=== PATIENT | male | born 1965 | race Caucasian/White ===

== ENCOUNTER 2024-02-27 16:59 | Inpatient (IN) | payer BC, SELFPAY ==
[2024-02-27] VITALS (7 sets, daily range): BP systolic 144–187; BP diastolic 95–121; BMI 21.2
--- NOTE | 2024-02-27 13:09 | ED.GENMED ---
History of Present Illness
General
Chief Complaint: Heart Rate Problem
Source: patient
Time Seen by Provider: 02/27/24 12:55
History of Present Illness
History of Present Illness:
58yoM with a history of IgA nephropathy s/p renal transplant in 2002 presenting with his mother for evaluation of multiple complaints. Patient reports 'fibrillating' in his chest for the past several months. He also reports a central discomfort in
his chest which he is having a hard time describing. Symptoms seem to be worse with activity and improved with rest. He reports associated dyspnea. He believes his heart rate is low. Patient also reports nausea over the past several weeks. He has
not been drinking much over the past few days and his urine output has decreased. Patient received his renal transplant at [facility] in 2002. He has not seen a rag cutting machine operator in about 2.5 years as his rag cutting machine operator reportedly
retired. Patient is supposed to be taking prednisone, and mycophenolate but he is taking these medications since September of this year. He has not had blood work in several years.
Past History
Past History
ED Past Medical History: HTN and Renal failure (Renal transplant 2002)
ED Past Surgical History: Other (Renal transplant 2002; AV fistula left forearm)
Social History
Tobacco: Non-smoker
Alcohol: None
Drug: None
Personal: Single
Living: with family
Employment: Not employed
Family History
Family History: Hypertension
Phy Exam
Physical Exam
Physical Exam:
Ill appearing male, fatigued, appears older than stated age
General Physical Exam
General age: appears older than age
General Skin: warm and dry
Cardiovascular Exam
Cardiovascular Exam: regular rate/rhythm
Pulmonary Exam
Pulmonary Exam: lungs clear, no respiratory distress, no crackles and no wheezing
Skin Exam
Skin Exam: warm/dry and pallor
Psychiatric Exam
Psychiatric Exam: normal mood/affect
Course
Orders/Labs/Results
Orders:
Orders
02/27/24 11:45
EKG [Electrocardiogram (*1)] Urgent
Reason for Study: Palpitations
EKG- Treatment ONCE
02/27/24 13:08
Cardiac Monitoring- Treatment ONCE
0.9% Sodium Chloride 1000 ml [Nss] 1,000 ml IV BOLUS
02/27/24 13:09
Bladder Scan- Treatment ONCE
02/27/24 13:14
0.9% Sodium Chloride 500 ml [Nss] 500 ml IV BOLUS
CR Chest - 2 Views Urgent
Comment:
Reason For Exam: SOB
02/27/24 13:24
Complete Blood Count/With Diff Urgent
Comprehensive Metabolic Panel Urgent
Magnesium Urgent
Phosphorus Urgent
TSH Reflex To Free T4 Routine
Comment: ADD ON
Troponin I Urgent
02/27/24 Dinner
Potassium, 2 Gram
At Your Request: Full Participation
Does patient need a safe tray?: No
02/27/24 15:38
Urinalysis Reflex To Culture Urgent
Date Specimen was Collected: 02/27/24
Time Specimen was Collected: 15:35
Urine Microscopic Reflex Cult Urgent
02/27/24 15:48
NEPHROLOGY CONSULT Urgent
Consulting Provider: Eduardo Carolina
Was physician already notified: Yes
02/27/24 16:35
Hemodialysis treatment As Directed
Treatment date:: 02/28/24
Treatment type: Hemodialysis
Ultrafiltration (kg): 2
Treatment time (duration): 2 hours 30 minutes
Use dialysis access:: Tunneled Cath
Dialyzer:: Optiflux 160
Blood flow rate minimum: 250
Blood flow rate maximum: 250
Dialysis flow rate: 600 mL/min
Dialysate temperature: 35 degrees Celsius
Sodium (Na): 140
Potassium (K): 2
Calcium (Ca): 2.5
Bicarbonate (HCO3): 35
02/27/24 16:36
Consult Interventional Radiology [IRAD CONSULT] Urgent
Consulting Provider: Rene Harris
Was physician already notified: Yes
Reason for Consult/Procedure: HD catheter placement
Acknowledgement that appropriate orders are entered: N/A
02/27/24 16:37
Vascular Surgery Consult Routine
Consulting Provider: Anthony Steele
Was physician already notified: Yes
Reason for consult: AVF ligation eval
PT/INR [Prothrombin Time] Stat
02/27/24 16:38
Admit/Transfer Patient As Directed
Co-Sign Provider:
Level of Care: Inpatient admission
Assign to:: Telemetry
Physician / Group: Hospitalist
Diagnosis: NENO
Reason for Telemetry: Arrhythmia
Date to Stop Telemetry: 03/01/24
Time to Stop Telemetry: 11:00
Reason for Hospitalization: NENO
Expected length of stay greater than two midnights?: Yes
ELOS- Estimated Length of Stay in days: 3
I certify the patient meets the requirements for IP care: Yes
02/27/24 16:39
PRN Pain Medication Management As Directed
May give lesser potent ordered pain med per pt: Yes
preference::
Protocol:: Medication orders for pain may be administered in a
manner that supports deferring to patient preference
when the pt is:
- Requesting an ordered lesser potent pain medication.
Least to most potent pain medications are defined
as: acetaminophen < NSAID < tramadol < opioids
(morphine, oxycodone, hydromorphone).
- Requesting a lesser dose of the same medication IF
ORDERED.
- Requesting a less intrusive route of administration
if both routes are prescribed by the provider (PO <
IV).
02/27/24 16:40
Code Status As Directed
Resuscitation Status: Full Code
02/27/24 18:15
Acetaminophen [Tylenol] 650 mg PO Q4HPRN PRN
Bisacodyl [Dulcolax] 10 mg RECTAL [id number] PRN
Docusate W/Senna [Senokot-S] 1 tablet PO BIDPRN PRN
Ondansetron Injectable [Zofran] 4 mg IV Q8HPRN PRN
Polyethylene Glycol Powder [Miralax] 17 grams PO DAILYPRN PRN
02/27/24 18:15
Add On- LAB Routine
Tests Added?: TSH with reflex FT4
Echo 2D MMode Color/Doppler Routine
Reason for Study: cardiomegaly
Activity As Directed
Activity Level: Out of Bed-Early Mobility
Pneumatic Compression Sleeves As Directed
Type: Knee high
Vital Signs As Directed
Frequency: Per unit guidelines
DX Deep Vein Thrombosis Video Routine
02/28/24 06:00
Complete Blood Count/With Diff IN AM
Comprehensive Metabolic Panel IN AM
02/28/24 07:00
Complete Blood Count/No Diff Urgent
Ferritin Urgent
Comment: pre-Hemodialysis lab, to be drawn by HD nurse
Intact PTH Includes Calcium Urgent
Comment: pre-Hemodialysis lab, to be drawn by HD nurse
Iron Urgent
Comment: pre-Hemodialysis lab, to be drawn by HD nurse
Renal Profile Urgent
Comment: pre-Hemodialysis lab, to be drawn by HD nurse
Total Iron Binding Urgent
Comment: pre-Hemodialysis lab, to be drawn by HD nurse
02/28/24 08:00
Epoetin Dmitri-Epbx [Retacrit] 10,000 units IV HD-ONCE ONE
Heparin See Dose Instructions INTRACATH HD-ONCE ONE
Mannitol 25% 12.5 grams IV HD-Q1H
03/01/24 11:00
DC Protocol for Telemetry ONCE
Abnormal Lab Results
02/27/24 02/27/24 02/27/24
13:24 15:38 16:37
RBC 2.65 L 10^6/uL
(4.70-6.10)
Hgb 7.5 L g/dL
(13.0-18.0)
Hct 21.5 L %
(39.0-52.0)
Absolute Lymphs (auto) 0.8 L 10^3/uL
(1.2-3.4)
Lymphocytes % 13.5 L %
(20.5-51.1)
PT 16.0 H Sec
(11.4-14.6)
Carbon Dioxide 12 L* mmol/L
(22-30)
BUN 148 H* mg/dl
(9-20)
Creatinine 19.8 H* mg/dL
(0.7-1.3)
Glucose 113 H mg/dl
(70-99)
Phosphorus 9.8 H mg/dl
(2.5-4.5)
Ur Occult Blood Reflex 1+ A
(Negative)
Urine RBC 11-15 A /HPF
(0-2)
Urine Albumin (Reflex) 2+ A
(Neg - Trace)
02/27/24 13:24
02/27/24 13:24
Vital Signs
Initial and Last Documented VS:
Initial Vital Signs
Temp Pulse Resp BP Pulse Ox
98.1 F 97 18 187/121 99
02/27/24 11:49 02/27/24 11:49 02/27/24 11:49 02/27/24 11:49 02/27/24 11:49
Last Documented Vital Signs
Temp Pulse Resp BP Pulse Ox
98.1 F 86 21 174/111 98
02/27/24 11:49 02/27/24 17:30 02/27/24 17:30 02/27/24 17:00 02/27/24 15:00
MDM/Problems Addressed
Differential Diagnosis Includes:
58yoM here with nausea, decreased PO intake/urination, and palpitations. Hx of renal transplant. Patient has been off all his antirejection meds for at least 5-6 months and has not seen nephrology in >2 years. Patient is hypertensive on arrival
with otherwise normal vitals. He is ill-appearing and appears clinically uremic. Differential diagnosis includes but is not limited to: Renal failure, electrolyte abnormality, ACS
Initial ED plan: Check cardiac labs, magnesium, phosphorus, EKG, UA, and CXR. IV fluid bolus.
*EKG
Interpreted by ED Provider?: Yes
EKG Intrepretation Date: 02/27/24
Heart Rate: 97
Rate: normal
Rhythm: sinus
[place]: normal axis
Interval: normal interval
QRS Pattern: left vent hypertrophy
Ischemia: no ischemia
*Critical Care Note
Total Time (30-74mins, 75-104mins- exclusive of procedures): Not Applicable
Update Note
Update Note:
Labs reveal a BUN of 148 and a creatinine over 19. Bicarb 12. Potassium is fortunately normal. Chest x-ray shows mild pulmonary edema. Case was discussed with nephrology team and he was admitted for further management.
ED Attending Note
-
Portions of this chart may have been created with voice recognition software.� Occasional wrong word or��sound alike� substitutions may have occurred due to the inherent limitations of voice recognition software.
Discharge Plan
Departure
Patient Disposition: Admit
Date of Disposition: 02/27/24
Time of Disposition: 16:00
Presentation/result/management discussed w/ accepting MD/DO: Hospitalist
Discharge Problem:
Acute uremia, Acute on chronic kidney failure
Interventions
Interventions:
*Risk Screen - Suicide Last Done: 02/27/24 13:00
*General Assessment Last Done: 02/27/24 11:49
*Neglect/Abuse Screening Last Done: 02/27/24 13:00
ED- Fall Risk Assessment Last Done: 02/27/24 18:21
*ED COVID-19 Vaccine History Last Done: 02/27/24 13:10
*Nursing Disposition Last Done: 02/27/24 18:21
ED- Cardiac Assessment Last Done: 02/27/24 13:11
ED- Pulmonary Assessment Last Done: 02/27/24 13:12
Discharge Date and Time
Discharge Date/Time: 02/27/24 18:22
[2024-02-27] MEDS: NSS 500 IV (13:27)
[2024-02-27 13:36] LABS: % Basophils 0.5 % (0-2); % Immature Granulocytes 0.2 % (0-0.5); % Lymphocytes 13.5 % (20.5-51.1); % Monocytes 7.4 % (1.7-9.3); % Neutrophils 73.4 % (42.2-75.2); Absolute Eosinophils 0.3 10^3/uL (0-0.7); Absolute Lymphocytes 0.8 10^3/uL (1.2-3.4); Absolute Monocytes 0.4 10^3/uL (0.1-0.6); Absolute Neutrophils 4.3 10^3/uL (1.4-6.5); Hematocrit 21.5 % (39.0-52.0); Hemoglobin 7.5 g/dL (13.0-18.0); Mean Corp Hgb Conc. 34.9 g/dL (33.0-37.0); Mean Corpuscular Hgb 28.3 pg (27.0-31.0); Mean Corpuscular Volume 81.1 fL (80.0-94.0); Mean Platelet Volume 10.1 fL (7.4-10.4); Nucleated Red Blood Cells % 0 % (-); Platelet Count 192 10^3/uL (130-400); Red Blood Cell Count 2.65 10^6/uL (4.70-6.10); Red Cell Dist. Width 13.6 % (11.5-14.5); White Blood Cell Count 5.9 10^3/uL (4.8-10.8)
[2024-02-27 14:13] LABS: ALT (SGPT) 13 U/L (0-50); AST (SGOT) 17 U/L (17-59); Albumin 4.2 g/dl (3.5-5.0); Alkaline Phosphatase 75 U/L (38-126); Calcium 8.5 mg/dl (8.4-10.2); Carbon Dioxide 12 mmol/L (22-30); Chloride 103 mmol/L (98-107); Glucose 113 mg/dl (70-99); Magnesium 2.1 mg/dl (1.6-2.3); Phosphorus 9.8 mg/dl (2.5-4.5); Potassium 4.9 mmol/L (3.5-5.1); Sodium 139 mmol/L (135-145); Total Bilirubin 0.6 mg/dl (0.2-1.3); Total Protein 7.3 g/dl (6.3-8.2)
[2024-02-27 14:17] LABS: Troponin I 0.024 ng/ml
[2024-02-27 15:08] LABS: Estimated Creatinine Clearance 4 ml/min; eGFR 2.46
[2024-02-27 15:10] LABS: Blood Urea Nitrogen 148 mg/dl (9-20)
[2024-02-27 16:09] LABS: Urine Albumin 2+ (Neg - Trace); Urine Bilirubin Negative (Negative); Urine Character Clear (Clear); Urine Color Yellow; Urine Glucose Negative (Negative); Urine Ketone Negative (Negative); Urine Leukocyte Negative (Negative); Urine Nitrite Negative (Negative); Urine Occult Blood 1+ (Negative); Urine Specific Gravity 1.015 (<1.030); Urine Urobilinogen Negative (Neg - 1+)
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
--- NOTE | 2024-02-27 16:43 | HPS.HSE ---
Family Physician
-
Family Physician: Tru Dexter
Chief Complaint
-
palpitations
History of Present Illness
58yo M with PMHx of IgA nephropathy, ESRD s/p kidney transplant in 2002 in [facility] with complains of palpitations started on the day of admission. He has stopped his antirejection medications 5 months ago since was not feeling that
he needs them. Also he was not following with assisted living manager for more then 2 years now. His L AV fistula extremely dilated, previously he was advised to have ligation, however declined. Found volume overloaded and with renal failure
Medical History
Past Medical History
Past Medical History: Reports Other
Additional Past Medical History:
see HPI
Past Surgical History: Reports Other
Additional Past Surgical History:
see HPI
Social History
Tobacco: Non-smoker
Alcohol: None
Drug: None
Family History
Family History: Not pertinent
Allergies / Home Medications
Allergies reflects when Allergies were last updated in Earlier [facility].
Home Medications with original date entered in Earlier [facility]
Allergy/Medication List:
Allergies
Allergy/AdvReac Type Severity Reaction Status Date / Time
No Known Allergies Allergy Unverified 02/27/24 16:38
Home Medications
Prograf: 2 mg PO HS 06/14/12
Prograf: 3 mg PO .AM 06/14/12
mycophenolate mofetil 250 mg capsule 1,000 mg PO BID 06/14/12
prednisone 5 mg tablet 5 mg PO DAILY 06/14/12
Vitamin D3: 1,000 units PO DAILY 12/08/14
cyclobenzaprine 10 mg tablet 10 mg PO TIDPRN PRN PAIN, SPASM #11 tabs 12/08/14
lisinopril 2.5 mg tablet 2.5 mg PO HS 12/08/14
omega-3 fatty acids-fish oil 340 mg-1,000 mg capsule (Fish Oil) 1 cap PO HS 12/08/14
cyclobenzaprine 10 mg tablet 10 mg PO TIDPRN PRN pain or spasm #15 tabs 01/10/15
azithromycin 250 mg tablet 250 mg PO DAILY #4 tabs 12/21/19
Review of Systems
-
History Source: Patient
A 12 point ROS was completed and negative except as noted: Yes
Cardiac: Reports Palpitations
Physical Exam
Vital Signs
Vital Signs
Temp Pulse Resp BP Pulse Ox
98.1 F 81 18 175/114 100
02/27/24 11:49 02/27/24 12:45 02/27/24 14:00 02/27/24 12:35 02/27/24 13:12
Physical Exam
General: No Apparent Distress and Comfortable
HEENT: NormoCephalic, Anicteric and Moist mucous membranes
Respiratory: Crackles; No Wheezes or Rales
Cardiac: S1/S2 and Regular Rhythm
GI: Soft, Non Tender and Non Distended
Musculoskeletal: No Clubbing, No Cyanosis, Edema, Left Lower Extremity (trace) and Edema, Right Lower Extremity (trace)
Skin: Warm
Neuro: Awake, Alert, Oriented and AO x 3
Psych: Calm
Laboratory Results
-
02/27/24 13:24
02/27/24 13:24
Laboratory Results
Total Bilirubin 0.6 mg/dl (0.2-1.3) 02/27/24 13:24
AST 17 U/L (17-59) 02/27/24 13:24
ALT 13 U/L (0-50) 02/27/24 13:24
Alkaline Phosphatase 75 U/L (38-126) 02/27/24 13:24
Troponin I 0.024 ng/ml 02/27/24 13:24
Data Reviewed
-
Diagnostic Radiology: Report Reviewed by me
Lab Data: Labs Reviewed by me
Impression/Plan
-
A/P:
#Renal failure, acute on chronic, transplant failure without rejection with volume overload
Nephrology consult
IRAD consult for HDF cath
Unlikely any residual kidney functioning left -follow recommendation of assisted living manager for imunosupressive drugs
#Possible [facility] as per EKG
Will need eventual Echo
#Palpitations
no hyperkalemia
Significant uremia can be a cause
HD
EKG in ED showed sinus rhyhtm
telemetry
check TSH
#Anemia
Most liekly 2/2 ESRD
Epo as per nephro
Follow CBC - consent for transfusion signed in ED
DVT ppx - SCDs
Full code
I have spent at least 59min admitting the patient
[2024-02-27 19:24] LABS: TSH Reflex To Free T4 2.18 uIU/ml (0.47-4.68)
--- NOTE | 2024-02-27 19:30 | PTCARENOTE ---
Pt received at shift change. Pt pleasant, AAOX3, VSS, and receptive to room. Pt complains of slight R kidney pain and nausea. RN gave pt PRN IV Zofran. Pt tolerated well and expresses decreased nausea. Pt bed in lowest position and call rothman within
reach. Pt informed on importance of call rothman usage and pt replays understanding. Will continue with current plan of care.
[2024-02-27] MEDS: ZOFRAN 4 MG IV (20:42)
[2024-02-28] VITALS (7 sets, daily range): BP systolic 82–167; BP diastolic 74–106
--- NOTE | 2024-02-28 09:05 | W.PN.HOSP.TC ---
Today's Communication/Plan
-
pending labs, permacath and HD
Assessment / Plan
Assessment / Plan
58yo M with PMHx of IgA nephropathy, ESRD s/p kidney [facility] in [facility] with complains of palpitations started on the day of admission. He has stopped his antirejection medications 5 months ago since was not feeling that
he needs them. Also he was not following with erp pm for more then 2 years now. His L AV fistula extremely dilated, previously he was advised to have ligation, however declined. Found volume overloaded and with renal failure. Planned for perma
cath
A/P:
#Renal failure, acute on chronic, transplant failure without rejection with volume overload
Nephrology consult
IRAD consult for HDF cath
Unlikely any residual kidney functioning left -follow recommendation of erp pm for imunosupressive drugs
#Possible [facility] as per EKG
Will need eventual Echo
#Palpitations
no hyperkalemia
Significant uremia can be a cause
HD
EKG in ED showed sinus rhythm
telemetry
check TSH
#Anemia
Most likely 2/2 ESRD
Epo as per nephro
Follow CBC - consent for transfusion signed in ED
DVT ppx - SCDs
Full code
I have spent at least 39min reviewing chart, test results, communication with consultants and direct patient care
Anticipated Discharge: > 48 hours
Subjective/Interval History
-
Date of Service: February 28, 2024
Objective Data
-
Labs:
Laboratory Results
02/28/24
07:00
WBC Pending
Hgb Pending
Hct Pending
Plt Count Pending
Sodium Pending
Potassium Pending
Chloride Pending
Carbon Dioxide Pending
BUN Pending
Creatinine Pending
Glucose Pending
Calcium Pending
Total Bilirubin Pending
AST Pending
ALT Pending
Alkaline Phosphatase Pending
Vital Signs:
Vital Signs
Temp Pulse Resp BP Pulse Ox
97.8 F 74 16 141/93 98
02/28/24 07:00 02/28/24 07:00 02/28/24 07:00 02/28/24 07:00 02/28/24 07:00
I&O
02/27/24 02/28/24 02/29/24
06:59 06:59 06:59
Intake Total 240 / 240
Output Total 60 / 60
Balance 180 / 180
Review of Systems
-
History Source: Patient
All other systems: Reviewed and negative
Physical Exam
-
General: No Apparent Distress
HEENT: Normocephalic
Respiratory: Crackles
GI: Soft, Nontender and Nondistended
Neuro: Awake, Alert, Oriented, AO x 3 and No Motor Deficits
Psych: Calm
--- NOTE | 2024-02-28 09:56 | W.PN.UPDATE ---
Update Note
Progress Note Update
Attempted to see patient, patient off floor at IR procedure.
[2024-02-28] MEDS: ANCEF 10 IV (10:04)
[2024-02-28] MEDS: MANNITOL 25% 12.5 GRAMS IV ×2 (15:55→17:04)
--- NOTE | 2024-02-28 16:06 | W.PN.NEPH.HD ---
Assessment
-
Seen on HD. no complaints. VSS, access CVC ok
Progress Note - Hemodialysis
-
Date of Service: February 28, 2024
Duration: 30 minutes and 2 hours
Potassium Bath: 2
Calcium Bath: 2.5
Opti-Dialyzer: 160
Ultrafiltration: Other (2kg)
Blood Flow: 250
Dialysate Flow: 600
Heparin: no
EPO: 43523 units
[2024-02-28 16:08] LABS: Hematocrit 21.1 % (39.0-52.0); Hemoglobin 7.4 g/dL (13.0-18.0); Mean Corp Hgb Conc. 35.1 g/dL (33.0-37.0); Mean Corpuscular Volume 82.7 fL (80.0-94.0); Mean Platelet Volume 10.7 fL (7.4-10.4); Platelet Count 180 10^3/uL (130-400); Red Blood Cell Count 2.55 10^6/uL (4.70-6.10); Red Cell Dist. Width 13.8 % (11.5-14.5); White Blood Cell Count 5.6 10^3/uL (4.8-10.8)
[2024-02-28 16:25] LABS: ALT (SGPT) 13 U/L (0-50); AST (SGOT) 15 U/L (17-59); Albumin 3.9 g/dl (3.5-5.0); Alkaline Phosphatase 69 U/L (38-126); Calcium 8.3 mg/dl (8.4-10.2); Carbon Dioxide 13 mmol/L (22-30); Chloride 104 mmol/L (98-107); Glucose 140 mg/dl (70-99); Iron 67 ug/dl (49-181); Phosphorus 9.2 mg/dl (2.5-4.5); Potassium 4.7 mmol/L (3.5-5.1); Sodium 140 mmol/L (135-145); Total Bilirubin 0.4 mg/dl (0.2-1.3); Total Protein 7.2 g/dl (6.3-8.2)
[2024-02-28 16:30] LABS: Percent Saturation 25 % (20-50); Total Iron Binding Capacity 265 ug/dl (261-462)
[2024-02-28 16:59] LABS: Estimated Creatinine Clearance 4 ml/min; eGFR 2.46
[2024-02-28] MEDS: RETACRIT 10000 UNITS IV (17:04)
[2024-02-28 17:11] LABS: Blood Urea Nitrogen 153 mg/dl (9-20)
[2024-02-28] MEDS: HEPARIN 4700 UNITS INTRACATH (17:56)
[2024-02-28] MEDS: ZOFRAN 4 MG IV (23:30)
[2024-02-29 03:35] VITALS: BP 136/84
[2024-02-29 07:52] VITALS: BP 137/84
--- NOTE | 2024-02-29 07:57 | W.PN.UPDATE ---
Update Note
Progress Note Update
Seen and evaluated. 58-year-old male who initially started dialysis in 1998 secondary to renal failure from IgA nephropathy. Subsequently renal transplant in 2002 and was no longer on dialysis. That renal transplant (cadaveric) has been
functional since then but now presents with dysfunctional transplant/failed. Requiring hemodialysis, tunneled dialysis catheter placed now. He has a left forearm AV fistula. We were asked to evaluate given tortuosity/aneurysmal degeneration of
the fistula. Per the patient the fistula was created over [address] Tru Harrell here at [facility]. Patient does not have any issues, no pain at the site of the fistula or in the forearm, denies any ulcerative skin overlying.
On exam/he is awake and alert. He is in no acute distress. Breathing is unlabored. 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 The fistula is not tense. It is not pulsatile. There is no skin
thinning or stretching or ulceration of the skin. No significant skin changes at all actually. Patient points to a nodule in the medial upper arm that he notes was a prior 'blood clot.'
Plan/he has a functional fistula. He has no clear indication for removal of it or ligation. I would actually favor we continue to use this as it seems like it is a functional fistula. Is nonpulsatile and there is a good thrill. There is no skin
changes. He is not significantly bothered by the appearance or the size of the aneurysmal degeneration. Has been dealing with this for a while. Would recommend we get an ultrasound of the fistula to confirm adequacy of flow (flow volumes) as well
as an ultrasound upper extremity venous to rule out any outflow vein occlusion (he notes a history of blood clot in the upper arm vein). If there is occlusion in the drainage pathway, that could be a reason why this is become more aneurysmal over
time and in that case could consider some sort of transposition to try to get it to drain better and preserve the fistula still. However, again, as noted if the flow volumes are reasonable, I do not know that we have need to do that as it seems to
be draining well and is not tense and there is an excellent thrill (nonpulsatile at all).
[2024-02-29] MEDS: MANNITOL 25% 12.5 GRAMS IV ×2 (08:43→10:13)
[2024-02-29 09:34] LABS: ALT (SGPT) 11 U/L (0-50); AST (SGOT) 16 U/L (17-59); Albumin 3.8 g/dl (3.5-5.0); Alkaline Phosphatase 72 U/L (38-126); Blood Urea Nitrogen 90 mg/dl (9-20); Calcium 8.4 mg/dl (8.4-10.2); Carbon Dioxide 17 mmol/L (22-30); Chloride 102 mmol/L (98-107); Estimated Creatinine Clearance 6 ml/min; Glucose 107 mg/dl (70-99); Potassium 4.5 mmol/L (3.5-5.1); Sodium 141 mmol/L (135-145); Total Bilirubin 0.6 mg/dl (0.2-1.3); eGFR 3.79
[2024-02-29 09:49] LABS: % Basophils 0.5 % (0-2); % Eosinophils 7.5 % (0-6); % Immature Granulocytes 0.4 % (0-0.5); % Lymphocytes 16.4 % (20.5-51.1); % Monocytes 10.7 % (1.7-9.3); % Neutrophils 64.5 % (42.2-75.2); Absolute Eosinophils 0.4 10^3/uL (0-0.7); Absolute Lymphocytes 0.9 10^3/uL (1.2-3.4); Absolute Monocytes 0.6 10^3/uL (0.1-0.6); Absolute Neutrophils 3.6 10^3/uL (1.4-6.5); Hematocrit 23.5 % (39.0-52.0); Mean Corpuscular Hgb 28.3 pg (27.0-31.0); Mean Platelet Volume 10.8 fL (7.4-10.4); Nucleated Red Blood Cells % 0 % (-); Platelet Count 182 10^3/uL (130-400); Red Blood Cell Count 2.83 10^6/uL (4.70-6.10); Red Cell Dist. Width 13.7 % (11.5-14.5); White Blood Cell Count 5.6 10^3/uL (4.8-10.8)
--- NOTE | 2024-02-29 09:52 | W.PN.NEPH.HD ---
Assessment
-
Seen on HD. no complaints. VSS, access CVC tunnelled.
for US AVF to determined usability
Progress Note - Hemodialysis
-
Date of Service: February 29, 2024
Duration: 3 hours
Potassium Bath: 2
Calcium Bath: 2.5
Opti-Dialyzer: 160
Ultrafiltration: Other (2kg)
Blood Flow: 300
Dialysate Flow: 600
Heparin: no
EPO: no
[2024-02-29 11:02] VITALS: BP 139/99
--- NOTE | 2024-02-29 11:02 | W.PN.HOSP.TC ---
Today's Communication/Plan
-
cont HD
Assessment / Plan
Assessment / Plan
58yo M with PMHx of IgA nephropathy, ESRD s/p kidney transplant in 2002 in [facility] with complains of palpitations started on the day of admission. He has stopped his antirejection medications 5 months ago since was not feeling that
he needs them. Also he was not following with sales communications manager for more then 2 years now. His L AV fistula extremely dilated, previously he was advised to have ligation, however declined. Found volume overloaded and with renal failure. Had permacath
placed on 02/29/24 and started on daily HD, plan for 3 HD sessions and afterwards will need outpatient HD seat
A/P:
#Renal failure, acute on chronic, transplant failure without rejection with volume overload
Nephrology consult
IRAD consult for HDF cath
Unlikely any residual kidney functioning left -follow recommendation of sales communications manager for immunosuppressive drugs
As per VascSx - might be able to use AVF - planning for US studies
#Possible LVH as per EKG
Will need eventual Echo
#Palpitations
no hyperkalemia
Significant uremia can be a cause
HD
EKG in ED showed sinus rhythm
telemetry
check TSH
#Anemia
Most likely 2/2 ESRD
Epo as per nephro
Follow CBC - consent for transfusion signed in ED
DVT ppx - SCDs
Full code
I have spent at least 39min reviewing chart, test results, communication with consultants and direct patient care
Anticipated Discharge: 24 - 48 hours
Subjective/Interval History
-
Date of Service: February 29, 2024
Objective Data
-
Labs:
Laboratory Results
02/29/24
07:53
WBC 5.6
Hgb 8.0 L
Hct 23.5 L
Plt Count 182
Sodium 141
Potassium 4.5
Chloride 102
Carbon Dioxide 17 L
BUN 90 H
Creatinine 13.8 H*
Glucose 107 H
Calcium 8.4
Total Bilirubin 0.6
AST 16 L
ALT 11
Alkaline Phosphatase 72
Vital Signs:
Vital Signs
Temp Pulse Resp BP Pulse Ox
98.3 F 73 18 137/84 98
02/29/24 07:52 02/29/24 07:52 02/29/24 07:52 02/29/24 07:52 02/29/24 07:52
I&O
02/28/24 02/29/24 03/01/24
06:59 06:59 06:59
Intake Total 240 / 240 900 / 900
Output Total 60 / 60
Balance 180 / 180 900 / 900
Review of Systems
-
History Source: Patient
All other systems: Reviewed and negative
Physical Exam
-
General: No Apparent Distress
HEENT: Normocephalic
Respiratory: Clear to Auscultation
GI: Soft, Nontender and Nondistended
Skin: Warm
Neuro: Awake, Alert, Oriented, AO x 3 and No Motor Deficits
Psych: Calm
[2024-02-29] MEDS: HEPARIN 4700 UNITS INTRACATH (11:16)
[2024-02-29 12:53] VITALS: BMI 21.2
--- NOTE | 2024-02-29 13:36 | CM ---
Patient seen bedside, initial assessment completed. Patient resides with his mother, father, and brother, in a two story home, two steps to enter. Patient denies use of DME, VN, or SNF history. Patient confirms PCP Tru Dexter, pharmacy used
[facility] in [place], confirms prescription coverage. Patient reports history of outpatient dialysis in 1998. Patient provided with list of outpatient dialysis centers, will review list. CM will send referrals to outpatient facilities pending patient
decision. CM will continue to follow for all discharge planning needs.
Plan; outpatient dialysis once chair found.
[2024-02-29 15:45] VITALS: BP 132/88
[2024-02-29 19:14] VITALS: BP 136/84
[2024-02-29] MEDS: ZOFRAN 4 MG IV (22:46)
[2024-02-29 23:38] VITALS: BP 131/81
[2024-03-01 03:43] VITALS: BP 138/85
[2024-03-01 06:33] VITALS: BMI 20.2
[2024-03-01 07:43] VITALS: BP 132/80
[2024-03-01 07:58] LABS: % Basophils 0.7 % (0-2); % Eosinophils 9.2 % (0-6); % Immature Granulocytes 0.3 % (0-0.5); % Lymphocytes 21.1 % (20.5-51.1); % Monocytes 14.3 % (1.7-9.3); % Neutrophils 54.4 % (42.2-75.2); Absolute Eosinophils 0.5 10^3/uL (0-0.7); Absolute Lymphocytes 1.2 10^3/uL (1.2-3.4); Absolute Monocytes 0.8 10^3/uL (0.1-0.6); Absolute Neutrophils 3.2 10^3/uL (1.4-6.5); Hemoglobin 8.2 g/dL (13.0-18.0); Mean Corp Hgb Conc. 34.2 g/dL (33.0-37.0); Mean Corpuscular Hgb 29.4 pg (27.0-31.0); Mean Platelet Volume 10.6 fL (7.4-10.4); Nucleated Red Blood Cells % 0 % (-); Platelet Count 182 10^3/uL (130-400); Red Blood Cell Count 2.79 10^6/uL (4.70-6.10); Red Cell Dist. Width 13.5 % (11.5-14.5); White Blood Cell Count 5.8 10^3/uL (4.8-10.8)
--- NOTE | 2024-03-01 08:09 | W.PN.UPDATE ---
Update Note
Progress Note Update
Patient seen at bedside this a.m. resting comfortably. No events overnight. Awaiting ultrasound studies. Will follow-up with patient when studies complete.
--- NOTE | 2024-03-01 08:10 | CON.VAS ---
Consultation
Consultation Request
Performing Provider: Cedric
Reason for Consultation: Aneurysmal AV fistula
Medical History
-
Chief Complaint: Aneurysmal AV fistula
History of Present Illness:
58-year-old male who initially started dialysis in 1998 secondary to renal failure from IgA nephropathy. Subsequently renal transplant in 2002 and was no longer on dialysis. That renal transplant (cadaveric) has been functional since then but now
presents with dysfunctional transplant/failed. Requiring hemodialysis, tunneled dialysis catheter placed now. He has a left forearm AV fistula. We were asked to evaluate given tortuosity/aneurysmal degeneration of the fistula. Per the patient
the fistula was created over [address] Tru Harrell here at [facility]. Patient does not have any issues, no pain at the site of the fistula or in the forearm, denies any ulcerative skin overlying.
On exam/he is awake and alert. He is in no acute distress. Breathing is unlabored. 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 The fistula is not tense. It is not pulsatile. There is no skin
thinning or stretching or ulceration of the skin. No significant skin changes at all actually. Patient points to a nodule in the medial upper arm that he notes was a prior 'blood clot.'
Past Medical History
Past Medical History: HTN and Renal Failure (Status post transplant in 2002)
Past Surgical History: Other (Kidney transplant 2002, left upper extremity AV fistula)
Social History
Tobacco: Non-Smoker
Drug: None
Personal: Single
Living: With Family
Employment: Not Employed
Family History
Family History: Reviewed & Not Pertinent
Allergies / Home Medications
Allergy/AdvReac Type Severity Reaction Status Date / Time
No Known Allergies Allergy Unverified 02/27/24 16:38
�Medication �Instructions �Recorded �Confirmed �Type
Prograf: 2 mg PO HS Transplant 06/14/12 02/27/24 History
Prograf: 3 mg PO .AM Transplant 06/14/12 02/27/24 History
mycophenolate mofetil 250 mg 1,000 mg PO BID Transplant 06/14/12 02/27/24 History
capsule
prednisone 5 mg tablet 5 mg PO DAILY Transplant 06/14/12 02/27/24 History
Vitamin D3: 1,000 units PO DAILY Supplement 12/08/14 02/27/24 History
cyclobenzaprine 10 mg tablet 10 mg PO TIDPRN PRN PAIN, SPASM 12/08/14 02/27/24 Rx
#11 tabs
lisinopril 2.5 mg tablet 2.5 mg PO HS Blood Pressure 12/08/14 02/27/24 History
omega-3 fatty acids-fish oil 340 1 cap PO HS Supplement 12/08/14 02/27/24 History
mg-1,000 mg capsule (Fish Oil)
cyclobenzaprine 10 mg tablet 10 mg PO TIDPRN PRN pain or spasm 01/10/15 02/27/24 Rx
#15 tabs
azithromycin 250 mg tablet 250 mg PO DAILY #4 tabs 12/21/19 02/27/24 Rx
Review of Systems
-
History Source: Patient
Constitutional: Reports Fatigue
EENT: Reports No Symptoms
Respiratory: Reports No Symptoms
Cardiac: Reports No Symptoms
Vascular: Denies Leg Pain / Claudication
Abdomen/GI: Reports No Symptoms
: Reports No Symptoms
Musculoskeletal: Reports No Symptoms
Skin: Reports Other (Left upper extremity aneurysmal AV fistula at forearm)
Neurological: Reports No Symptoms
Endocrine: Reports No Symptoms
Physical Exam
Vital Signs
Temp Pulse Resp BP Pulse Ox
97.8 F 67 18 132/80 98
03/01/24 07:43 03/01/24 07:43 03/01/24 07:43 03/01/24 07:43 03/01/24 07:43
Lab Results
03/01/24 07:03
Troponin I 0.024 ng/ml 02/27/24 13:24
Physical Exam
General: No Apparent Distress
HEENT: Normocephalic and Atraumatic
Respiratory: Non Labored Respirations
Cardiac: Negative JVD
GI: Soft and Non Tender
Musculoskeletal: No Clubbing and No Cyanosis
Skin: Warm
Neuro: Awake, Alert and Oriented
Psych: Calm
Assessment / Plan
-
Plan/he has a functional fistula. He has no clear indication for removal of it or ligation. I would actually favor we continue to use this as it seems like it is a functional fistula. Is nonpulsatile and there is a good thrill. There is no skin
changes. He is not significantly bothered by the appearance or the size of the aneurysmal degeneration. Has been dealing with this for a while. Would recommend we get an ultrasound of the fistula to confirm adequacy of flow (flow volumes) as well
as an ultrasound upper extremity venous to rule out any outflow vein occlusion (he notes a history of blood clot in the upper arm vein). If there is occlusion in the drainage pathway, that could be a reason why this is become more aneurysmal over
time and in that case could consider some sort of transposition to try to get it to drain better and preserve the fistula still. However, again, as noted if the flow volumes are reasonable, I do not know that we have need to do that as it seems to
be draining well and is not tense and there is an excellent thrill (nonpulsatile at all).
[2024-03-01 08:49] LABS: ALT (SGPT) < 10 U/L (0-50); AST (SGOT) 18 U/L (17-59); Albumin 3.8 g/dl (3.5-5.0); Alkaline Phosphatase 70 U/L (38-126); Blood Urea Nitrogen 59 mg/dl (9-20); Calcium 8.4 mg/dl (8.4-10.2); Carbon Dioxide 24 mmol/L (22-30); Chloride 98 mmol/L (98-107); Estimated Creatinine Clearance 8 ml/min; Glucose 100 mg/dl (70-99); Potassium 4.1 mmol/L (3.5-5.1); Sodium 140 mmol/L (135-145); Total Bilirubin 0.5 mg/dl (0.2-1.3); Total Protein 7.1 g/dl (6.3-8.2); eGFR 5.32
--- NOTE | 2024-03-01 09:21 | W.PN.HOSP.TC ---
Today's Communication/Plan
-
see bold
Assessment / Plan
Assessment / Plan
58yo M with PMHx of IgA nephropathy, ESRD s/p kidney transplant in 2002 in [facility] with complains of palpitations started on the day of admission. He has stopped his antirejection medications 5 months ago since was not feeling that
he needs them. Also he was not following with squilgeer for more then 2 years now. His L AV fistula extremely dilated, previously he was advised to have ligation, however declined. Found volume overloaded and with renal failure. Had permacath
placed on 02/29/24 and started on daily HD, plan for 3 HD sessions and afterwards will need outpatient HD seat
A/P:
#Renal failure, acute on chronic, transplant failure without rejection with volume overload
Status post tunneled dialysis catheter placement 02/27
Appreciate nephrology input, continue dialysis as per nephrology
Unlikely any residual kidney functioning left -follow recommendation of squilgeer for immunosuppressive drugs
As per VascSx - might be able to use AVF - f/u US studies
#Possible LVH as per EKG
03/01 Echo w/ EF 60-65%, mild LVH
#Palpitations
No hyperkalemia
Significant uremia can be a cause
EKG in ED showed sinus rhythm
#Transient nausea/vomiting
Resolved, monitor
#Anemia
Most likely 2/2 ESRD
Epo as per nephro
Transfuse for hemoglobin less than 7.0
DVT ppx - SCDs
Full code
Total time spent to see the patient on the floor, examine the patient, review data and lab results, discuss treatment plan with patient, nursing staff around 35 minutes.
Physical Exam
General: No acute distress
HEENT: Normocephalic, Atraumatic, EOMI, MMM
Respiratory: Clear to Auscultation bilaterally
Cardiac: Normal S1/S2, Regular Rate and Rhythm
GI: Soft, Nontender, Nondistended, Normal Bowel Sounds
Extremities: No Clubbing, Cyanosis, or Edema
Left AV fistula noted with thrill
Neuro: Nonfocal/Grossly Intact
Psych: Calm, Cooperative
Derm: No Visible lesions
Anticipated Discharge: 24 - 48 hours
Subjective/Interval History
-
Date of Service: March 01, 2024
Patient had some nausea and vomiting last night, now resolved. No fever, no chest pain.
Objective Data
-
Labs:
Laboratory Results
03/01/24
07:03
WBC 5.8
Hgb 8.2 L
Hct 24.0 L
Plt Count 182
Sodium 140
Potassium 4.1
Chloride 98
Carbon Dioxide 24
BUN 59 H
Creatinine 10.4 H*
Glucose 100 H
Calcium 8.4
Total Bilirubin 0.5
AST 18
ALT < 10
Alkaline Phosphatase 70
Vital Signs:
Vital Signs
Temp Pulse Resp BP Pulse Ox
97.8 F 67 18 132/80 98
03/01/24 07:43 03/01/24 07:43 03/01/24 07:43 03/01/24 07:43 03/01/24 07:43
I&O
02/29/24 03/01/24 03/02/24
06:59 06:59 06:59
Intake Total 900 / 900 1080 / 1080
Balance 900 / 900 1080 / 1080
--- NOTE | 2024-03-01 10:12 | WOUNDNOTE ---
ULISES RN NOTE: Confirmed with nurse Katalina and AUTOMOTIVE INTERNET SALES MANAGER Marisela Hernandez that L arm has no open wounds and is not draining. Can cancel consult per nurse.
--- NOTE | 2024-03-01 11:07 | CM ---
resident manager reviewed patient's chart and spoke with patient and patient has selected [facility] in [place], referral sent to [facility] and case assigned to Opal, Ext [phone]. resident manager also reached out to Azucena at [facility] in
[place] and she is waiting on Hep B results, hopefully HD will be in place this Friday, patient is requesting Friday 2nd or 3rd shift.
Plan; Home with family, and New HD at [facility] in [place]. Patient's family to assist with transport initially.
[2024-03-01 11:27] VITALS: BP 139/80
[2024-03-01] MEDS: MANNITOL 25% 12.5 GRAMS IV (14:05)
[2024-03-01] MEDS: RETACRIT 10000 UNITS IV (14:05)
[2024-03-01 15:46] VITALS: BP 141/96
[2024-03-01] MEDS: MANNITOL 25% IV (15:46)
[2024-03-01] MEDS: HEPARIN 4800 UNITS INTRACATH (15:53)
--- NOTE | 2024-03-01 16:03 | W.PN.NEPH.HD ---
Assessment
-
pt seen during HD
vitals are stable
vol status stable, UF as tolerates
high dose FRANKI for anemia
Await AVF US, likely no intervention per vasc and hopefully can be accessed too
CM working placement-[facility]
Progress Note - Hemodialysis
-
Date of Service: March 01, 2024
Duration: 30 minutes and 3 hours
Potassium Bath: 3
Calcium Bath: 2.5
Opti-Dialyzer: 160
Ultrafiltration: Other (1.5kg)
Blood Flow: 400
Dialysate Flow: 600
Heparin: no
EPO: 62089
[2024-03-01 19:30] VITALS: BP 136/83
[2024-03-01 20:08] LABS: Hepatitis B Surface Antigen Negative (Negative)
[2024-03-01 20:26] LABS: Hepatitis B Core Ab, Total Negative (Negative); Hepatitis B Surface Antibody Negative; Hepatitis C Antibody Negative (Negative)
[2024-03-01 23:40] VITALS: BP 146/89
[2024-03-02 03:37] VITALS: BP 142/86
--- NOTE | 2024-03-02 07:34 | W.PN.HOSP.TC ---
Today's Communication/Plan
-
see bold
Assessment / Plan
Assessment / Plan
58yo M with PMHx of IgA nephropathy, ESRD s/p kidney transplant in 2002 in [facility] with complains of palpitations started on the day of admission. He has stopped his antirejection medications 5 months ago since was not feeling that
he needs them. Also he was not following with oracle database developer for more then 2 years now. His L AV fistula extremely dilated, previously he was advised to have ligation, however declined. Found volume overloaded and with renal failure. Had permacath
placed on 02/29/24 and started on daily HD, plan for 3 HD sessions and afterwards will need outpatient HD seat
A/P:
#Renal failure, acute on chronic, transplant failure without rejection with volume overload
Status post tunneled dialysis catheter placement 02/27
Appreciate nephrology input, continue dialysis as per nephrology
Unlikely any residual kidney functioning left -follow recommendation of oracle database developer for immunosuppressive drugs
Appreciate vascular surgery input, okay to attempt HD via graft
Discharge when cleared by nephrology
#Lightheadedness with standing
Check orthostatics, counseled patient to stand slowly and make sure lightheadedness resolves before walking
#Possible LVH as per EKG
03/01 Echo w/ EF 60-65%, mild LVH
#Palpitations
No hyperkalemia
Significant uremia can be a cause
EKG in ED showed sinus rhythm
#Transient nausea/vomiting
Resolved, monitor
#Anemia
Most likely 2/2 ESRD
Epo as per nephro
Transfuse for hemoglobin less than 7.0
DVT ppx - SCDs
Full code
Total time spent to see the patient on the floor, examine the patient, review data and lab results, discuss treatment plan with patient, nursing staff around 37 minutes.
Physical Exam
General: No acute distress
HEENT: Normocephalic, Atraumatic, EOMI, MMM
Respiratory: Clear to Auscultation bilaterally
Cardiac: Normal S1/S2, Regular Rate and Rhythm
GI: Soft, Nontender, Nondistended, Normal Bowel Sounds
Extremities: No Clubbing, Cyanosis, or Edema
Left AV fistula noted with thrill
Neuro: Nonfocal/Grossly Intact
Psych: Calm, Cooperative
Derm: No Visible lesions
Anticipated Discharge: 24 - 48 hours
Subjective/Interval History
-
Date of Service: March 02, 2024
Reports lightheadedness with standing initially, then resolved. No fever, no vomiting.
Objective Data
-
Labs:
Laboratory Results
03/02/24
07:19
WBC Pending
Hgb Pending
Hct Pending
Plt Count Pending
Sodium Pending
Potassium Pending
Chloride Pending
Carbon Dioxide Pending
BUN Pending
Creatinine Pending
Glucose Pending
Calcium Pending
Vital Signs:
Vital Signs
Temp Pulse Resp BP Pulse Ox
98.6 F 78 18 142/86 98
03/02/24 03:37 03/02/24 03:37 03/02/24 03:37 03/02/24 03:37 03/02/24 03:37
I&O
03/01/24 03/02/24 03/03/24
06:59 06:59 06:59
Intake Total 1080 / 1080 1220 / 1220
Output Total 0 / 0
Balance 1080 / 1080 1220 / 1220
[2024-03-02 08:05] VITALS: BP 136/83
[2024-03-02 08:30] LABS: Hematocrit 27.8 % (39.0-52.0); Hemoglobin 9.3 g/dL (13.0-18.0); Mean Corp Hgb Conc. 33.5 g/dL (33.0-37.0); Mean Corpuscular Hgb 28.7 pg (27.0-31.0); Mean Corpuscular Volume 85.8 fL (80.0-94.0); Mean Platelet Volume 10.7 fL (7.4-10.4); Platelet Count 224 10^3/uL (130-400); Red Blood Cell Count 3.24 10^6/uL (4.70-6.10); Red Cell Dist. Width 13.4 % (11.5-14.5); White Blood Cell Count 7.7 10^3/uL (4.8-10.8)
--- NOTE | 2024-03-02 08:33 | W.PN.UPDATE ---
Update Note
Progress Note Update
US HD graft study read by REJI Mai to attempt access for HD.
[2024-03-02 09:27] LABS: Blood Urea Nitrogen 37 mg/dl (9-20); Calcium 8.9 mg/dl (8.4-10.2); Carbon Dioxide 27 mmol/L (22-30); Chloride 98 mmol/L (98-107); Estimated Creatinine Clearance 11 ml/min; Glucose 100 mg/dl (70-99); Magnesium 1.9 mg/dl (1.6-2.3); Phosphorus 4.8 mg/dl (2.5-4.5); Potassium 4.1 mmol/L (3.5-5.1); Sodium 141 mmol/L (135-145); eGFR 8.13
--- NOTE | 2024-03-02 10:37 | CM ---
performance improvement manager reviewed patient's chart and spoke with patient this am and spoke with Azucena at [facility] in [place] and Hep B results have been faxed to [facility] and to [facility] in [place]. Final chair time has been
set up for Mon-Wed-Fri 3:35pm, patient made aware along with physicians.
Plan; Home with new HD set up with [facility] in [place].
[2024-03-02 11:00] VITALS: BP 140/91
--- NOTE | 2024-03-02 12:37 | W.PN.NEPH.PH ---
Today's Communication / Plan
-
HD tomorrow
Assessment/Plan
-
Assessment
NENO/ESRD
Azotemia
Right upper extremity AV fistula
donor renal transplant
Biopsy-proven IgA nephropathy hypertension
Anemia
Plan
HD initiated for failed transplant mainly from non compliance with meds and f/u
plan HD tomorrow
noted MWF at [facility] -starting Friday
AVF US noted and appt vasc-ok to access AVF-will use 1 needle
-
-
Date of Service: March 02, 2024
CC / HPI / ROS
-
Chief Complaint:
NENO
History of Present Illness:
completed 3 HDs yesterday
BP stable
hb better at 9.3
Review of Systems:
no cp or sob
no n/v
Labs
-
Labs:
WBC 7.7 10^3/uL (4.8-10.8) 03/02/24 07:19
RBC 3.24 10^6/uL (4.70-6.10) L 03/02/24 07:19
Hgb 9.3 g/dL (13.0-18.0) L 03/02/24 07:19
Hct 27.8 % (39.0-52.0) L 03/02/24 07:19
Plt Count 224 10^3/uL (130-400) D 03/02/24 07:19
Sodium 141 mmol/L (135-145) 03/02/24 07:19
Potassium 4.1 mmol/L (3.5-5.1) 03/02/24 07:19
Chloride 98 mmol/L (98-107) 03/02/24 07:19
Carbon Dioxide 27 mmol/L (22-30) 03/02/24 07:19
BUN 37 mg/dl (9-20) H 03/02/24 07:19
Creatinine 7.3 mg/dL (0.7-1.3) H* 03/02/24 07:19
eGFR 8.13 03/02/24 07:19
Glucose 100 mg/dl (70-99) H 03/02/24 07:19
Calcium 8.9 mg/dl (8.4-10.2) 03/02/24 07:19
Phosphorus 4.8 mg/dl (2.5-4.5) H 03/02/24 07:19
Albumin 3.8 g/dl (3.5-5.0) 03/01/24 07:03
Physical Exam
-
Vital Signs:
Vital Signs
Temp Pulse Resp BP Pulse Ox
97.9 F 74 16 140/91 97
03/02/24 11:00 03/02/24 11:00 03/02/24 11:00 03/02/24 11:00 03/02/24 11:00
Cardiovascular:: Regular rate and rhythm
Respiratory:: Bilateral: CTA
Lung Excursion:: Normal
Abdomen:: Nontender and Soft
Extremity Edema:: None: Bilateral:
Rosales Catheter: No
[2024-03-02 23:21] VITALS: BP 147/91; BP 148/95; BP 149/89; PULSE 106; PULSE 83; PULSE 88
[2024-03-03 06:00] VITALS: BMI 20.5
[2024-03-03 07:22] LABS: Hemoglobin 8.7 g/dL (13.0-18.0); Mean Corp Hgb Conc. 33.5 g/dL (33.0-37.0); Mean Corpuscular Hgb 28.6 pg (27.0-31.0); Mean Corpuscular Volume 85.5 fL (80.0-94.0); Mean Platelet Volume 10.6 fL (7.4-10.4); Platelet Count 230 10^3/uL (130-400); Red Blood Cell Count 3.04 10^6/uL (4.70-6.10); Red Cell Dist. Width 13.3 % (11.5-14.5); White Blood Cell Count 8.2 10^3/uL (4.8-10.8)
[2024-03-03 07:42] VITALS: BP 157/91
[2024-03-03 07:46] LABS: Blood Urea Nitrogen 55 mg/dl (9-20); Calcium 9.2 mg/dl (8.4-10.2); Carbon Dioxide 24 mmol/L (22-30); Chloride 98 mmol/L (98-107); Estimated Creatinine Clearance 8 ml/min; Glucose 97 mg/dl (70-99); Magnesium 1.9 mg/dl (1.6-2.3); Phosphorus 5.8 mg/dl (2.5-4.5); Potassium 4.3 mmol/L (3.5-5.1); Sodium 140 mmol/L (135-145); eGFR 5.51
--- NOTE | 2024-03-03 09:07 | W.PN.HOSP.TC ---
Today's Communication/Plan
-
Dialysis today
Discharge tomorrow if cleared by nephrology
Assessment / Plan
Assessment / Plan
58yo M with PMHx of IgA nephropathy, ESRD s/p kidney transplant in 2002 in [facility] with complains of palpitations started on the day of admission. He has stopped his antirejection medications 5 months ago since was not feeling that
he needs them. Also he was not following with loom starter for more then 2 years now. His L AV fistula extremely dilated, previously he was advised to have ligation, however declined. Found volume overloaded and with renal failure. Had permacath
placed on 02/29/24 and started on daily HD, plan for 3 HD sessions and afterwards will need outpatient HD seat
A/P:
#Renal failure, acute on chronic, transplant failure without rejection with volume overload
Status post tunneled dialysis catheter placement 02/27
Appreciate nephrology input, continue dialysis M/W/F as per nephrology
Unlikely any residual kidney functioning left -follow recommendation of loom starter for immunosuppressive drugs
Appreciate vascular surgery input, okay to attempt HD via graft
#Lightheadedness with standing
Counseled patient to stand slowly and make sure lightheadedness resolves before walking
Orthostatics negative
Discussed with nephrology, patient is not compliant with medications, will not start midodrine
#Possible LVH as per EKG
03/01 Echo w/ EF 60-65%, mild LVH
#Palpitations
No hyperkalemia
Significant uremia can be a cause
EKG in ED showed sinus rhythm
#Transient nausea/vomiting
Resolved, monitor
#Anemia
Most likely 2/2 ESRD
Epo as per nephro
Transfuse for hemoglobin less than 7.0
DVT ppx - SCDs
Full code
Total time spent to see the patient on the floor, examine the patient, review data and lab results, discuss treatment plan with patient, nursing staff around 51 minutes.
Physical Exam
General: No acute distress
HEENT: Normocephalic, Atraumatic, EOMI, MMM
Respiratory: Clear to Auscultation bilaterally
Cardiac: Normal S1/S2, Regular Rate and Rhythm
GI: Soft, Nontender, Nondistended, Normal Bowel Sounds
Extremities: No Clubbing, Cyanosis, or Edema
Left AV fistula noted with thrill
Neuro: Nonfocal/Grossly Intact
Psych: Calm, Cooperative
Derm: No Visible lesions
Anticipated Discharge: Within 24 hours
Subjective/Interval History
-
Date of Service: March 03, 2024
Patient reports lightheadedness/dizziness with standing. No fever, no vomiting.
Objective Data
-
Labs:
Laboratory Results
03/03/24
06:40
WBC 8.2
Hgb 8.7 L
Hct 26.0 L
Plt Count 230
Sodium 140
Potassium 4.3
Chloride 98
Carbon Dioxide 24
BUN 55 H
Creatinine 10.1 H*
Glucose 97
Calcium 9.2
Vital Signs:
Vital Signs
Temp Pulse Resp BP Pulse Ox
98.3 F 56 20 157/91 99
03/03/24 07:42 03/03/24 07:42 03/03/24 07:42 03/03/24 07:42 03/03/24 07:42
I&O
03/02/24 03/03/24 03/04/24
06:59 06:59 06:59
Intake Total 1220 / 1220 1080 / 1080
Output Total 0 / 0
Balance 1220 / 1220 1080 / 1080
--- NOTE | 2024-03-03 11:08 | CM ---
manager of engineering reviewed patient's chart and spoke with patient this am, patient is for HD today, patient has been set up with [facility] in [place], Friday- Friday-Friday @ 3:35PM. Flow sheets need to be faxed to [facility] today. .
Patient's family to assist with transport to HD.
Plan; Home at discharge with new HD at [facility] in [place].
[2024-03-03 11:19] VITALS: BP 153/90
[2024-03-03 11:28] VITALS: BP 146/90; BP 149/92; BP 153/93; PULSE 72; PULSE 76; PULSE 82
[2024-03-03 13:57] LABS: Intact PTH 704.9 pg/ml (13.6-85.8)
--- NOTE | 2024-03-03 14:07 | W.PN.NEPH.HD ---
Assessment
-
Seen on HD. no complaints. VSS, access ok. using AVF 1:1
Progress Note - Hemodialysis
-
Date of Service: March 03, 2024
Duration: 30 minutes and 3 hours
Potassium Bath: 3
Calcium Bath: 2.5
Opti-Dialyzer: 160
Ultrafiltration: Other (kg)
Blood Flow: 400
Dialysate Flow: 600
Heparin: no
EPO: 4000 units
[2024-03-03] MEDS: RETACRIT 4000 UNITS IV (14:24)
[2024-03-03 15:15] VITALS: BP 154/92
[2024-03-03] MEDS: HEPARIN 4200 UNITS INTRACATH (15:54)
[2024-03-03 23:24] VITALS: BP 152/92
[2024-03-04 06:00] VITALS: BMI 20.2
[2024-03-04 07:14] LABS: Hematocrit 26.9 % (39.0-52.0); Hemoglobin 8.9 g/dL (13.0-18.0); Mean Corp Hgb Conc. 33.1 g/dL (33.0-37.0); Mean Corpuscular Hgb 28.4 pg (27.0-31.0); Mean Corpuscular Volume 85.9 fL (80.0-94.0); Mean Platelet Volume 9.9 fL (7.4-10.4); Platelet Count 216 10^3/uL (130-400); Red Blood Cell Count 3.13 10^6/uL (4.70-6.10); Red Cell Dist. Width 13.4 % (11.5-14.5); White Blood Cell Count 7.7 10^3/uL (4.8-10.8)
[2024-03-04 07:35] VITALS: BP 138/89
[2024-03-04 08:28] LABS: Blood Urea Nitrogen 43 mg/dl (9-20); Calcium 9.2 mg/dl (8.4-10.2); Carbon Dioxide 28 mmol/L (22-30); Chloride 96 mmol/L (98-107); Estimated Creatinine Clearance 10 ml/min; Glucose 86 mg/dl (70-99); Phosphorus 5.3 mg/dl (2.5-4.5); Potassium 4.2 mmol/L (3.5-5.1); Sodium 139 mmol/L (135-145); eGFR 7.07
--- NOTE | 2024-03-04 08:44 | W.PN.HOSP.TC ---
Today's Communication/Plan
-
Discharge today
Assessment / Plan
Assessment / Plan
58yo M with PMHx of IgA nephropathy, ESRD s/p kidney transplant in 2002 in [facility] with complains of palpitations started on the day of admission. He has stopped his antirejection medications 5 months ago since was not feeling that
he needs them. Also he was not following with editor greeting card for more then 2 years now. His L AV fistula extremely dilated, previously he was advised to have ligation, however declined. Found volume overloaded and with renal failure. Had permacath
placed on 02/29/24 and started on daily HD, plan for 3 HD sessions and afterwards will need outpatient HD seat
A/P:
#Renal failure, acute on chronic, transplant failure without rejection with volume overload
Status post tunneled dialysis catheter placement 02/27
Appreciate nephrology input, continue dialysis M/W/F as per nephrology
Unlikely any residual kidney functioning left -follow recommendation of editor greeting card for immunosuppressive drugs
Appreciate vascular surgery input, okay to attempt HD via graft
Medically stable for discharge today
#Lightheadedness with standing
Counseled patient to stand slowly and make sure lightheadedness resolves before walking
Orthostatics negative
Discussed with nephrology, patient is not compliant with medications, will not start midodrine
#Essential hypertension
Used to be on lisinopril 2.5 mg at bedtime, patient was not taking
Blood pressure today is 138/89, with intermittent dizziness with standing
Discussed with nephrology, no need to add any medications upon discharge
Follow-up with dialysis team & nephrology upon discharge
#Possible LVH as per EKG
03/01 Echo w/ EF 60-65%, mild LVH
#Palpitations
No hyperkalemia
Significant uremia can be a cause
EKG in ED showed sinus rhythm
#Transient nausea/vomiting
Resolved, monitor
#Anemia
Most likely 2/2 ESRD
Epo as per nephro
Transfuse for hemoglobin less than 7.0
DVT ppx - SCDs
Full code
Physical Exam
General: No acute distress
HEENT: Normocephalic, Atraumatic, EOMI, MMM
Respiratory: Clear to Auscultation bilaterally
Cardiac: Normal S1/S2, Regular Rate and Rhythm
GI: Soft, Nontender, Nondistended, Normal Bowel Sounds
Extremities: No Clubbing, Cyanosis, or Edema
Left AV fistula noted with thrill
Neuro: Nonfocal/Grossly Intact
Psych: Calm, Cooperative
Derm: No Visible lesions
Anticipated Discharge: Today
Subjective/Interval History
-
Date of Service: March 04, 2024
Continues to have mild lightheadedness with standing. No fever, no vomiting.
Objective Data
-
Labs:
Laboratory Results
03/04/24
06:52
WBC 7.7
Hgb 8.9 L
Hct 26.9 L
Plt Count 216
Sodium 139
Potassium 4.2
Chloride 96 L
Carbon Dioxide 28
BUN 43 H
Creatinine 8.2 H*
Glucose 86
Calcium 9.2
Vital Signs:
Vital Signs
Temp Pulse Resp BP Pulse Ox
97.7 F 71 18 138/89 99
03/04/24 07:35 03/04/24 07:35 03/04/24 07:35 03/04/24 07:35 03/04/24 07:35
I&O
03/03/24 03/04/24 03/05/24
06:59 06:59 06:59
Intake Total 1080 / 1080 1200 / 1200
Output Total 0 / 0
Balance 1080 / 1080 1200 / 1200
--- NOTE | 2024-03-04 10:12 | CM ---
Spoke with Azucena at [facility]. HD flow sheets to be refaxed. Fax verified [phone].
Patient to start HD tomorrow 3:35 pm.
Family will transport.
Plan: home with outpatient HD.
--- NOTE | 2024-03-04 11:40 | W.PN.NEPH.PH ---
Addendum entered and electronically signed by Eduardo Carolina MD 03/04/24 11:48:
correction: not on amlodipine
Original Note:
Today's Communication / Plan
-
dc
Assessment/Plan
-
Assessment
NENO/ESRD
Azotemia
Right upper extremity AV fistula
donor renal transplant
Biopsy-proven IgA nephropathy hypertension
Anemia
Plan
d/c
HD tomorrow at [facility]
continue amlodipine
no immunosuppressants
-
-
Date of Service: March 04, 2024
CC / HPI / ROS
-
Chief Complaint:
NENO
History of Present Illness:
tolerated HD yesterday
BP stable
hgb stable 8.9
Review of Systems:
no cp or sob
no n/v
Labs
-
Labs:
WBC 7.7 10^3/uL (4.8-10.8) 03/04/24 06:52
RBC 3.13 10^6/uL (4.70-6.10) L 03/04/24 06:52
Hgb 8.9 g/dL (13.0-18.0) L 03/04/24 06:52
Hct 26.9 % (39.0-52.0) L 03/04/24 06:52
Plt Count 216 10^3/uL (130-400) 03/04/24 06:52
Sodium 139 mmol/L (135-145) 03/04/24 06:52
Potassium 4.2 mmol/L (3.5-5.1) 03/04/24 06:52
Chloride 96 mmol/L (98-107) L 03/04/24 06:52
Carbon Dioxide 28 mmol/L (22-30) 03/04/24 06:52
BUN 43 mg/dl (9-20) H 03/04/24 06:52
Creatinine 8.2 mg/dL (0.7-1.3) H* 03/04/24 06:52
eGFR 7.07 03/04/24 06:52
Glucose 86 mg/dl (70-99) 03/04/24 06:52
Calcium 9.2 mg/dl (8.4-10.2) 03/04/24 06:52
Phosphorus 5.3 mg/dl (2.5-4.5) H 03/04/24 06:52
Albumin 3.8 g/dl (3.5-5.0) 03/01/24 07:03
Physical Exam
-
Vital Signs:
Vital Signs
Temp Pulse Resp BP Pulse Ox
97.7 F 71 18 138/89 99
03/04/24 07:35 03/04/24 07:35 03/04/24 07:35 03/04/24 07:35 03/04/24 07:35
Cardiovascular:: Regular rate and rhythm
Respiratory:: Bilateral: Coarse
Lung Excursion:: Normal
Abdomen:: Nontender and Soft
Bowel Sounds:: Normal
Extremity Edema:: None: Bilateral:
--- NOTE | 2024-03-04 17:23 | W.DCSUMMARY ---
Discharge Summary
Discharge Data
Date of Admission: 02/27/24
Date of Discharge: 03/04/24
-
Pending Results: No
Hospital Course
Discharge diagnosis:
Acute on chronic renal failure requiring dialysis
donor renal transplant
Right upper extremity fistula
Biopsy-proven IgA nephropathy hypertension
Essential hypertension
Dizziness with standing
Mild left ventricular hypertrophy
Palpitations
Transient nausea/vomiting
Anemia due to chronic kidney disease
Consults: Nephrology, vascular surgery
AV fistula ultrasound:
Patent left arm arteriovenous fistula. Significant tortuosity identified along the venous outflow. Flow volumes are adequate for hemodialysis (1.2 L/min to 3.7 L/min). Several areas of aneurysmal degeneration are identified.
Hospital course:
58-year-old male with a past medical history of IgA nephropathy, hypertension, and end-stage renal failure requiring dialysis status post cadaveric renal transplant in 2002 which was functioning, now presents with failed transplant. Unclear
etiology for transplant failure, as it has been functioning since 2002. Patient was seen in conjunction with nephrology, and received dialysis Friday/Friday/Friday. Patient was seen in conjunction with vascular surgery, who states that his left
arm AV fistula can be accessed for dialysis. He was able to use his fistula for dialysis without any complications.
Patient has a history of hypertension, he was prescribed lisinopril 2.5 mg at bedtime. He was not taking this medication. Unclear why he was not taking any of the medications he has been prescribed.
Patient complains of dizziness with standing. Orthostatics are negative. He was given thigh-high compression stockings to be used with activity.
Patient complained of palpitations, EKG was normal, echocardiogram shows mild LVH, mild MR, mild TR.
He also had transient nausea and vomiting, which resolved.
Patient is medically stable and cleared by nephrology for discharge. 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
Disposition: Home self-care
Discharge planning: Required 40 minutes
Discharge Plan
-
Patient Disposition: Home (Routine Discharge)
Discharge Diagnosis/Procedures: Acute on chronic renal failure, renal transplant failure, dizziness with standing, palpitations, transient nausea and vomiting, anemia of chronic kidney disease
Condition: Good
Diet: Other diet
Additional Diets: Low potassium diet
Activity: As tolerated
Driving Restrictions: As prior to admission
Activity Restrictions/Additional Instructions:
Please maintain your usual dialysis sessions on Friday/Friday/Friday.
Wear your thigh-high compression stockings, this will help your dizziness.
Follow-up with your primary care doctor in 1 week, vascular surgery as scheduled, and nephrology.
Referrals:
Tru Dexter MD [Family Provider] - in one week
Kalpana Hoff CRNP [Specified Professional Personl] - 03/16/24 1:00 pm (Vascular surgery follow up)
Prescriptions:
Discontinued
mycophenolate mofetil 250 MG capsule
1,000 mg PO BID
Patient Comments:
pt not taking
prednisone 5 MG tablet
5 mg PO DAILY
Patient Comments:
pt not taking
Prograf:
2 mg PO HS
Patient Comments:
PM dose, pt not taking
Prograf:
3 mg PO .AM
Patient Comments:
morning dose, pt not taking
lisinopril 2.5 MG tablet
2.5 mg PO HS
Patient Comments:
pt not taking
Fish Oil 1,000 MG capsule
1 cap PO HS
Patient Comments:
pt not taking
Vitamin D3:
1,000 units PO DAILY
Patient Comments:
pt not taking
cyclobenzaprine 10 MG tablet
10 mg PO TIDPRN PRN (Reason: PAIN, SPASM) Qty: 11 0RF
Patient Comments:
Pt not taking
cyclobenzaprine 10 MG tablet
10 mg PO TIDPRN PRN (Reason: pain or spasm) Qty: 15 0RF
Patient Comments:
pt not taking
azithromycin 250 MG tablet
250 mg PO DAILY Qty: 4 0RF
Patient Comments:
Pt not taking
Discharge Orders:
Discharge Patient (As Directed); Ordered 03/04/24
Ordered By: Jean Paul Forte
Discharge Date and Time
Discharge Date/Time: 03/04/24 15:14
Print Language: MICRONESIAN
== END 2024-03-04 15:14 | disposition home or self-care (01) | DRG 698 ==
LOC: 4 WEST ACU 16:59
PROVIDERS: Physician Assistant; ADMITTING PHYSICIAN Internal Medicine; ATTENDING PHYSICIAN Family Medicine; CONSULT PHYSICIAN Specialist; CONSULT PHYSICIAN Surgery Vascular Surgery; EMERGENCY PHYSICIAN Emergency Medicine; FAMILY PHYSICIAN Family Medicine
DX: T86.19 Other complication of kidney transplant (principal); N18.6 End stage renal disease; I13.11 Hypertensive heart and chronic kidney disease without heart failure, with stage 5 chronic kidney disease, or end stage renal disease; N17.9 Acute kidney failure, unspecified; Y83.0 Surgical operation with transplant of whole organ as the cause of abnormal reaction of the patient, or of later complication, without mention of misadventure at the time of the procedure
CPT/HCPCS: 36558; 51798; 71046; 76937; 77001; 80048; 80053; 81003; 81015; 82728; 83540; 83550; 83735; 83970; 84100; 84443; 84484; 85025; 85027; 85610; 86704; 86706; 86803; 87070; 87340; 93005; 93306; 93990; 96360; 99152; 99153; 99285; C1750; G0257; Q5106

== ENCOUNTER 2024-08-25 22:48 | Inpatient (IN) | payer BC, SELFPAY ==
[2024-08-25 16:35] VITALS: BP 160/109
[2024-08-25 17:12] LABS: % Basophils 0.4 % (0-2); % Eosinophils 5.3 % (0-6); % Immature Granulocytes 0.3 % (0-0.5); % Lymphocytes 14.5 % (20.5-51.1); % Neutrophils 70.5 % (42.2-75.2); Absolute Eosinophils 0.4 10^3/uL (0-0.7); Absolute Lymphocytes 1.1 10^3/uL (1.2-3.4); Absolute Monocytes 0.7 10^3/uL (0.1-0.6); Absolute Neutrophils 5.2 10^3/uL (1.4-6.5); Hematocrit 23.7 % (39.0-52.0); Hemoglobin 7.6 g/dL (13.0-18.0); Mean Corp Hgb Conc. 32.1 g/dL (33.0-37.0); Mean Corpuscular Hgb 28.8 pg (27.0-31.0); Mean Corpuscular Volume 89.8 fL (80.0-94.0); Mean Platelet Volume 9.1 fL (7.4-10.4); Nucleated Red Blood Cells % 0 % (-); Platelet Count 290 10^3/uL (130-400); Red Blood Cell Count 2.64 10^6/uL (4.70-6.10); Red Cell Dist. Width 14.3 % (11.5-14.5); White Blood Cell Count 7.4 10^3/uL (4.8-10.8)
[2024-08-25 17:22] LABS: ALT (SGPT) 15 U/L (0-50); AST (SGOT) 15 U/L (17-59); Albumin 3.4 g/dl (3.5-5.0); Alkaline Phosphatase 101 U/L (38-126); Blood Urea Nitrogen 15 mg/dl (9-20); Carbon Dioxide 36 mmol/L (22-30); Chloride 94 mmol/L (98-107); Glucose 91 mg/dl (70-99); Potassium 4.1 mmol/L (3.5-5.1); Sodium 137 mmol/L (135-145); Total Bilirubin 0.6 mg/dl (0.2-1.3); Total Protein 7.2 g/dl (6.3-8.2); eGFR 18.38
[2024-08-25 18:41] VITALS: BP 155/110
--- NOTE | 2024-08-25 19:36 | ED.GENMED ---
History of Present Illness
General
Chief Complaint: Abnormal Lab Value
Source: patient and other (Records from dialysis c[facility]eter)
Exam Limitations: none
Time Seen by Provider: 08/25/24 19:36
Nursing documentation reviewed up to this point in time: agreed with
History of Present Illness
History of Present Illness:
58 yo male PMHx of IgA nephropathy, ESRD s/p kidney transplant in 2002 in [facility] from Dialysis center for reported Hgb 6.9. He did finish dialysis today.
He reports LLQ abdominal pain 'at my kidney transplant site' for past month, states he saw Dr. Calderón last week and has out pt US of kidneys and bladder scheduled for 09/09, has appt. with GI 09/07 for reported blood in stool. He states he's noted
blood in his urine also.
Sent with Transition report with Dr. Luong's name on it and recommendations for admission orders if needed.
Pt denies fever/chills. Denies CP, SOB.
Past History
Past History
ED Past Medical History: HTN and Renal failure (Renal transplant 2002)
ED Past Surgical History: Other (Renal transplant 2002; AV fistula left forearm)
Social History
Tobacco: Non-smoker
Alcohol: None
Drug: None
Personal: Single
Living: with family
Employment: Not employed
Family History
Family History: Hypertension
Review of Systems
Review of Systems
Allergies reviewed?: Yes
All Other Systems: ROS reviewed and negative except as documented in HPI and ROS
Constitutional: Denies fever
Respiratory: Denies trouble breathing
Cardiac: Denies chest pain
ABD/GI: Reports abdominal pain (LLQ) and other (reportedly has heme positive stool); Denies nausea, vomiting or diarrhea
: Reports other (dialysis, makes little urine)
Musculoskeletal: Denies edema
Skin: Reports other (left arm dialysis shunt)
Neurological: Denies dizzy or headache
Phy Exam
Physical Exam
Physical Exam:
GENERAL: No acute distress. A&Ox3. Cachectic
CONSTITUTIONAL: Afebrile.
EYES: clear, conjunctivae normal
ENMT: moist mucus membranes
RESPIRATORY: Regular respirations, nonlabored, lungs clear.
CARDIOVASCULAR: Regular rate and rhythm, no murmurs, no rubs.
GI: Soft, tender firm area LLQ, normal BS
Rectal: small amount sierra stool, heme negative
MUSCULOSKELETAL: Moves with ease. Well perfused, No edema.
SKIN: Warm, dry, pink. Left arm with
PSYCH: Normal mood and affect. Well kept, interactive and appropriate
NEUROLOGIC: Awake, alert and oriented. No focal neurological deficits
Course
Orders/Labs/Results
Orders:
Orders
08/25/24 16:45
Type And Crossmatch [Type+Screen] Urgent
Complete Blood Count/With Diff Urgent
Comprehensive Metabolic Panel Urgent
08/25/24 21:20
US Renal Transplant Urgent
Reason For Exam: Dr. Calderón ordered, LLQ pain, kidney transplant
08/25/24 21:40
Urinalysis Reflex To Culture Urgent
Date Specimen was Collected: 08/25/24
Time Specimen was Collected: 21:39
Urine Microscopic Reflex Cult Urgent
Urine Culture Urgent
PETRA Source: U
Specimen Description:
Date Specimen was Collected: 08/25/24
Time Specimen was Collected: 21:39
08/25/24 22:02
UROLOGY CONSULT Urgent
Consulting Provider: Regis Padgett
Was physician already notified: Yes
Comment: mars hematuria, kidney transplant, dialysis pt
08/25/24 22:29
CT Abd/pel Without Iv Or Oral Urgent
Comment:
Reason For Exam: LLQ pain Dr. Padgett requests
08/25/24 22:35
Admit/Transfer Patient As Directed
Co-Sign Provider:
Level of Care: Inpatient admission
Assign to:: Medical/Surgical
Physician / Group: hospitalist
Diagnosis: hematuria
Reason for Hospitalization: hematuria
Expected length of stay greater than two midnights?: Yes
ELOS- Estimated Length of Stay in days: 2
I certify the patient meets the requirements for IP care: Yes
08/25/24 22:36
Code Status As Directed
Resuscitation Status: Full Code
PRN Pain Medication Management As Directed
May give lesser potent ordered pain med per pt: Yes
preference::
Protocol:: Medication orders for pain may be administered in a
manner that supports deferring to patient preference
when the pt is:
- Requesting an ordered lesser potent pain medication.
Least to most potent pain medications are defined
as: acetaminophen < NSAID < tramadol < opioids
(morphine, oxycodone, hydromorphone).
- Requesting a lesser dose of the same medication IF
ORDERED.
- Requesting a less intrusive route of administration
if both routes are prescribed by the provider (PO <
IV).
08/25/24 23:00
Acetaminophen [Tylenol] 650 mg PO Q4HPRN PRN
Bisacodyl [Dulcolax] 10 mg RECTAL [id number] PRN
Docusate W/Senna [Senokot-S] 1 tablet PO BIDPRN PRN
HydrALAZINE [Apresoline] 5 mg IV Q6HPRN PRN
Morphine Sulfate 2 mg IV Q4HPRN PRN
Ondansetron Injectable [Zofran] 4 mg IV Q6HPRN PRN
Polyethylene Glycol Powder [Miralax] 17 grams PO DAILYPRN PRN
08/26/24 01:19
NEPHROLOGY CONSULT Routine
Consulting Provider: Eduardo Carolina
Was physician already notified: Yes
Reason for consult: ESRD HD M/W/F
Activity As Directed
Activity Level: As Tolerated
Pneumatic Compression Sleeves As Directed
Type: Knee high
Vital Signs As Directed
Frequency: Per unit guidelines
Pulse Ox/spot Check [RESP] Routine
Quantity: 1
DX Deep Vein Thrombosis Video Routine
08/26/24 Breakfast
NPO
Allow oral meds: Yes
Allow clear liquids: Sips of Clears
NPO with Ice Chips: Yes
08/26/24 06:19
Basic Metabolic Panel IN AM
Complete Blood Count/No Diff IN AM
Ferritin IN AM
Iron IN AM
Total Iron Binding IN AM
08/26/24 Dinner
Cholesterol Lowering
At Your Request: Full Participation
Cholesterol Lowering: Sodium, 2 Gram
08/26/24 22:00
Amlodipine [Norvasc] 10 mg PO HS
Abnormal Lab Results
08/25/24 08/25/24
16:45 21:40
RBC 2.64 L 10^6/uL
(4.70-6.10)
Hgb 7.6 L g/dL
(13.0-18.0)
Hct 23.7 L %
(39.0-52.0)
MCHC 32.1 L g/dL
(33.0-37.0)
Absolute Lymphs (auto) 1.1 L 10^3/uL
(1.2-3.4)
Absolute Monos (auto) 0.7 H 10^3/uL
(0.1-0.6)
Lymphocytes % 14.5 L %
(20.5-51.1)
Chloride 94 L mmol/L
(98-107)
Carbon Dioxide 36 H mmol/L
(22-30)
Creatinine 3.7 H mg/dL
(0.7-1.3)
AST 15 L U/L
(17-59)
Albumin 3.4 L g/dl
(3.5-5.0)
Urine Ketones 1+ A
(Negative)
Ur Occult Blood Reflex 4+ A
(Negative)
Leukocyte Esterase Rfl 2+ A
(Negative)
Urine RBC >100 A /HPF
(0-2)
Urine WBC (Reflex) >100 A /HPF
(0-5)
Urine Bacteria (Reflex) Few A
(Negative)
Urine Albumin (Reflex) 4+ A
(Neg - Trace)
Crossmatch IS Only See Detail
08/25/24 16:45
08/25/24 16:45
Vital Signs
Initial and Last Documented VS:
Initial Vital Signs
Temp Pulse Resp BP Pulse Ox
98.5 F 105 18 160/109 98
08/25/24 16:35 08/25/24 16:35 08/25/24 16:35 08/25/24 16:35 08/25/24 16:35
Last Documented Vital Signs
Temp Pulse Resp BP Pulse Ox
97.6 F 69 18 127/76 97
08/27/24 15:29 08/27/24 15:29 08/27/24 15:29 08/27/24 15:29 08/27/24 15:29
MDM/Problems Addressed
MDM/Problems Addressed:
58 yo male PMHx of IgA nephropathy, ESRD s/p kidney transplant in 2002 in [facility] here from Dialysis center for reported Hgb 6.9. He did finish dialysis today.
He reports LLQ abdominal pain 'at my kidney transplant site' for past month, states he saw Dr. Calderón last week and has out pt US of kidneys and bladder scheduled for 09/09, has appt. with GI 09/07 for reported blood in stool. He states he's noted
blood in his urine also.
Sent with Transition report with Dr. Luong's name on it and recommendations for admission orders if needed.
Pt denies fever/chills. Denies CP, SOB.
Afebrile, NAD
CBC unremarkable, hemoglobin 7.6
CMP with no clinically significant abnormality
Stool heme neg
Consulted Dr. Carolina, Nephrology who requests pt be admitted for 'He is having gross hematuria. He�s terrible at making appts and following up. I�d say he needs urology evaluation because he for sure won�t do it if he gets discharged.'
Dr. Padgett notified of admission and requests plain CT abd/pelvis.
US result pending
Pt notified of admission
U/A pending
Hospitalist notified of admission.
Urology consult in
*Critical Care Note
Total Time (30-74mins, 75-104mins- exclusive of procedures): Not Applicable
ED Attending Note
-
Portions of this chart may have been created with voice recognition software.� Occasional wrong word or��sound alike� substitutions may have occurred due to the inherent limitations of voice recognition software.
Discharge Plan
Departure
Patient Disposition: Admit
Date of Disposition: 08/25/24
Time of Disposition: 21:56
Admit to: Med/Surg
Presentation/result/management discussed w/ accepting MD/DO: Hospitalist
Condition: Fair
Discharge Problem:
Mars hematuria, ESRD (end stage renal disease) on dialysis, Abdominal pain, LLQ
Interventions
Interventions:
*Risk Screen - Suicide Last Done: 08/25/24 16:35
*General Assessment Last Done: 08/25/24 16:35
*Neglect/Abuse Screening Last Done: 08/25/24 16:35
*ED- Fall Risk Assessment Last Done: 08/25/24 16:35
*ED COVID-19 Vaccine History Last Done: 08/25/24 16:35
*Nursing Disposition Last Done: 08/26/24 13:01
Discharge Date and Time
Discharge Date/Time: 08/26/24 13:01
[2024-08-25 21:00] VITALS: BP 149/101
[2024-08-25 21:48] LABS: Urine Albumin 4+ (Neg - Trace); Urine Bilirubin Negative (Negative); Urine Character Slightly Cloudy (Clear); Urine Color Red; Urine Glucose Negative (Negative); Urine Ketone 1+ (Negative); Urine Leukocyte 2+ (Negative); Urine Nitrite Negative (Negative); Urine Occult Blood 4+ (Negative); Urine Urobilinogen Negative (Neg - 1+)
[2024-08-25 22:08] LABS: Urine Red Blood Cell >100 /HPF (0-2); Urine Squamous Cell 0-2 /LPF (Few); Urine White Cell >100 /HPF (0-5)
[2024-08-25 22:09] LABS: Urine Bacteria Few (Negative)
--- NOTE | 2024-08-25 22:27 | HPS.HSE ---
Family Physician
-
Family Physician: * NONE
Chief Complaint
-
Hematuria, symptomatic anemia
History of Present Illness
This is a 58-year-old male who has past medical history significant for IgA nephropathy status post kidney transplant 2022, end-stage renal disease on hemodialysis again since at this 2823 who presents to the emergency department with hematuria and
hemoglobin of 6.9 at dialysis on Friday.
Patient reports that he hemoglobin has been dropping steadily since June. He has also been making some urine ever since he was started on amlodipine. He reports scant amount of urine. Started having hematuria again at around June. Denies
having any dysuria. He denies any flank pain. He denies any pelvic discomfort. He is denying any fevers or chills.
His last dialysis was today. Previous to that he had regular dialysis on Friday without any events and had a blood draw prior to dialysis which showed hemoglobin of 6.9. He denies lightheadedness dizziness or shortness of breath. He denies having
any chest pain.
In the emergency department he was hypertensive with a blood pressure of 150/101, pulse of 98, respiratory rate 16 and satting 98 on room air. CBC shows a white count of 112, hemoglobin was 7.6 and platelet count was 890. Last hemoglobin a year
ago was 8.9. Electrolytes with consistent with a recent dialysis, potassium 4.1 bicarb 36 BUN 59 creatinine of 3.7. UA shows 4+ blood and some leukocyte esterase but otherwise unremarkable.
Medical History
Past Medical History
Past Medical History: Reports HTN, Hypercholesterolemia and Renal Failure (ESRD on hemodialysis Friday for a left upper extremity AV fistula,)
Past Surgical History: Reports Urological (This is due to a kidney transplant 2002, left radiocephalic fistula 1998,)
Social History
Tobacco: Non-smoker
Alcohol: None
Drug: None
Personal: Single
Living: With Family
Family History
Family History: Not pertinent
Allergies / Home Medications
Allergies reflects when Allergies were last updated in [facility].
Home Medications with original date entered in [facility]
Allergy/Medication List:
Allergies
Allergy/AdvReac Type Severity Reaction Status Date / Time
No Known Allergies Allergy Unverified 02/27/24 16:38
Review of Systems
-
History Source: Patient
Constitutional: Reports No Symptoms
EENT: Reports No Symptoms
Respiratory: Reports No Symptoms
Cardiac: Reports No Symptoms
Abdomen/GI: Reports No Symptoms
: Reports No Symptoms
Musculoskeletal: Reports No Symptoms
Skin: Reports No Symptoms
Neurological: Reports No Symptoms
Endocrine: Reports No Symptoms
Hematologic/Lymphatic: Reports No Symptoms
Psych: Reports No Symptoms
Physical Exam
Vital Signs
Vital Signs
Temp Pulse Resp BP Pulse Ox
98.5 F 98 16 149/101 97
08/25/24 16:35 08/25/24 21:00 08/25/24 21:00 08/25/24 21:00 08/25/24 21:00
Physical Exam
General: Well Developed, Well Nourished, No Apparent Distress and Comfortable
HEENT: NormoCephalic, Anicteric, Moist mucous membranes and Atraumatic
Respiratory: Clear
Cardiac: S1/S2 and Regular Rhythm
GI: Soft, Non Tender, Non Distended and Normal Bowel Sounds
Rectal: Deferred by Provider
Genito-urinary: Deferred by me
Musculoskeletal: No Clubbing, No Cyanosis, No Edema and Other (Left upper extremity AV fistula with good thrill and bruit)
Skin: Warm
Neuro: AO x 3 and Nonfocal/grossly intact
Hematologic/Lymphatic: No Lymphadenopathy
Laboratory Results
-
08/25/24 16:45
08/25/24 16:45
Laboratory Results
Total Bilirubin 0.6 mg/dl (0.2-1.3) 08/25/24 16:45
AST 15 U/L (17-59) L 08/25/24 16:45
ALT 15 U/L (0-50) 08/25/24 16:45
Alkaline Phosphatase 101 U/L (38-126) 08/25/24 16:45
Data Reviewed
-
Lab Data: Labs Reviewed by me
Old Records: Reviewed
Impression/Plan
-
IMPRESSION:
58-year-old male with history of ESRD on hemodialysis, prior kidney transplant presents to the emergency department after being found to have a moving of 6.9 on hemodialysis on Friday and recent history of hematuria since in June. He is denying
any flank pain. He denies history of stones. He denies any fevers chills or abdominal discomfort. He denies any dysuria. Suspect possible renal cysts, less likely infectious cystitis or pyelo-.
PLAN:
1. Hematuria
- admit to med/surg
- CT abd/pelvis w/o contrast for now
- trend h/h
- routine bladder scan for retention
- urology consulted and aware
- no thinners or platelet inhibitors
- some pyuria in urine, with esrd and low output and without symptoms, will culture for now, start abx if Ct c/w cystitis or patient develops signs of infection
2. Symptomatic anemia - Normocytic. suspect ACD w/ some recent blood loss. Cannot rule out JAMEL
- iron panel
- trend h/h
- type and cross, consented, transfuse for Hgb < 7
3. ESRD - HD M/W/F
- nephrology consult
- renal diet
- fluid restriction
- mbd management
4. HTN
- continue home htn meds
5. Fever - new fever on arrival in ED. With LLQ pain, pyuria and fever possible transplant pyelo vs rejection. Stopped Anti-rejection meds 11 months ago
- fever w/u with blood cultures, viral panel
- urine culture
- mrsa swab
- given unknown source, will start vanc/ceftriaxone for now
DVT PPX - SCDs for now
Code status - Full code
[2024-08-25 22:44] VITALS: BMI 19.5
[2024-08-25 23:46] VITALS: BP 132/78
[2024-08-25] MEDS: TYLENOL 650 MG PO (23:48)
[2024-08-26] VITALS (17 sets, daily range): BP systolic 106–137; BP diastolic 68–92; BMI 19.3
[2024-08-26] MEDS: NORVASC 10 MG PO ×2 (00:16→22:26)
[2024-08-26] MEDS: STERILE WATER FOR INJECTION 10 ML IV ×2 (01:05→02:02)
[2024-08-26 01:06] LABS: COVID-19 Antigen Negative (Negative)
[2024-08-26] MEDS: ROCEPHIN 1000 MG IV ×2 (01:06→02:02)
[2024-08-26] MEDS: VANCOCIN 530 MG IV (01:41)
[2024-08-26 06:39] LABS: Hematocrit 19.8 % (39.0-52.0); Hemoglobin 6.6 g/dL (13.0-18.0); Mean Corp Hgb Conc. 33.3 g/dL (33.0-37.0); Mean Corpuscular Hgb 29.7 pg (27.0-31.0); Mean Corpuscular Volume 89.2 fL (80.0-94.0); Mean Platelet Volume 8.9 fL (7.4-10.4); Platelet Count 267 10^3/uL (130-400); Red Blood Cell Count 2.22 10^6/uL (4.70-6.10); Red Cell Dist. Width 14.2 % (11.5-14.5)
--- NOTE | 2024-08-26 06:54 | W.PN.UPDATE ---
Update Note
Progress Note Update
hgb 6.6/ 19.8, asymptomatic, + blood tinged urine, stable Vs. Type and screen done, Blood consent in chart, will transfuse 1 unit PRBC.
[2024-08-26 07:31] LABS: Blood Urea Nitrogen 25 mg/dl (9-20); Calcium 8.3 mg/dl (8.4-10.2); Carbon Dioxide 33 mmol/L (22-30); Chloride 97 mmol/L (98-107); Estimated Creatinine Clearance 16 ml/min; Glucose 88 mg/dl (70-99); Iron 32 ug/dl (49-181); Percent Saturation 20 % (20-50); Potassium 3.9 mmol/L (3.5-5.1); Sodium 135 mmol/L (135-145); Total Iron Binding Capacity 157 ug/dl (261-462)
--- NOTE | 2024-08-26 08:55 | PHA.VAN.IN ---
Assessment
- Assessment
Renal Function: Patient has ESRD, on chronic Hemodialysis
Concomitant Antimicrobials: ceftriaxone
Plan
- Plan
Initial / Loading Dose: 1500mg - 08/26 01:41
Maintenance Regimen: dosing by level
Monitorin/21 prior to HD
Pharmacokinetics Vancomycin I
- -
Patient Age: 58
Patient Sex: Male
Vancomycin Day #: 1
Indication: Bacteremia
Requesting Provider: Dr. Simmons
Pertinent Antimicrobial Allergies:
NKDA
Height / Weight:
Height 6 ft 2 in
Actual Weight 68.13 kg
IBW in k
Pertinent Past Medical History: BMI ~19, Renal transplant (2022), ESRD HD MWF
- Vital Signs / Lab Results
Temp Pulse Resp BP Pulse Ox
97.6 F 82 18 115/83 95
08/26/24 01:34 08/26/24 01:34 08/26/24 01:34 08/26/24 01:34 08/26/24 01:34
Lab Results - Hematology
08/25/24 08/26/24
16:45 06:19
WBC 7.4 7.0
Lab Results - Chemistry
08/25/24 08/26/24
16:45 06:19
BUN 15 25 H
Creatinine 3.7 H 5.1 H*
Estimated Creat Clear 16
Albumin 3.4 L
Lab Results - Urine
08/25/24
21:40
Urine Nitrite (Reflex) Negative
Leukocyte Esterase Rfl 2+ A
Urine WBC (Reflex) >100 A
Ur Squamous Epith Cells 0-2
Urine Bacteria (Reflex) Few A
Microbiology Results
08/26/24 00:18 Influenza Types A & B (RAVIN) - Final
Nasal Swab Negative for Influenza A & B, NAAT
Negative results must be combined with clinical observations
and patient history.
Nucleic Acid Amplification test (NAAT)performed on the
[employer] platform.
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
--- NOTE | 2024-08-26 10:52 | CONS.URO ---
Consultation
-
Performing Provider: Peffer
Reason for Consultation: Hematuria, anemia
Medical History
History of Present Illness
58M with renal failure s/p kidney transplant
IgA nephropathy and failure of transplant kidney now on dialysis
Several months of intermittent gross hematuria
He makes little urine each day - he says around 1/2 cup
No voided clots
No dysuria
No hx of UTIs
He was admitted for anemia after dialysis
No prior issues with hematuria or stones
No kidney or bladder cancer in his family
Low PSA in 2018
US was done showing no hydro or mass of transplant kidney
CTAP showed no hydro or obstruction. There is a thickened and mostly empty bladder. Transplant kidney enlarged and inflamed. [place] kidneys atrophic
Past Medical History
Past Medical History: Other (HTN, Hypercholesterolemia and Renal Failure )
Past Surgical History: Other (Kidney transplant)
Social History
Tobacco: Non-smoker
Alcohol: None
Drug: None
Personal: Single
Family History
Family History: Reviewed & Not Pertinent
Allergies/Home Medications
Allergies
Allergy/AdvReac Type Severity Reaction Status Date / Time
No Known Allergies Allergy Unverified 02/27/24 16:38
Home Medications
�Medication �Instructions �Recorded �Confirmed �Type
amlodipine 10 mg tablet 10 mg PO HS Blood Pressure 08/25/24 08/25/24 History
calcium carbonate (Tums) 600 mg PO MEALS indigestion 08/25/24 08/25/24 History
Physical Exam
Vital Signs
Vital Signs
Temp Pulse Resp BP Pulse Ox
98.5 F 82 16 130/82 98
08/26/24 10:24 08/26/24 10:24 08/26/24 10:24 08/26/24 10:24 08/26/24 10:24
Lab / Testing Results
Laboratory Results
08/26/24 06:19
08/26/24 06:19
Physical Exam
General: Well Developed, Well Nourished and No Apparent Distress
Respiratory: Clear
GI: Soft and Non Tender
Genito-urinary: No Costovertebral Tend
Neuro: AO x 3
Psych: Calm and Intact Judgement
Assessment / Plan
-
58M hx of renal failure, failed transplant kidney, admitted with anemia after dialysis
Possibly contributed to by persistent gross hematuria for 2-3 months
- Transfusion this AM for HGB <7
- NPO for OR today - cystoscopy, retrograde pyelogram, possible fulguration or ureteroscopy to eval source of bleeding
--- NOTE | 2024-08-26 11:37 | W.PN.HOSP.TC ---
Today's Communication/Plan
-
Continue antibiotics
Await cultures
OR today
Transfuse
Assessment / Plan
Assessment / Plan
Gen-AAOx3, NAD
HEENT-NC, AT, anicteric, clear oral mm
Neck-supple
CV-reg, no M, +S1/S2
Lungs-clear B/L
Abd-soft, NT, ND
Ext-no edema
Musculoskeletal-no cyanosis, clubbing, left upper extremity AV fistula
Skin-warm and dry
Neuro-grossly non-focal
Psych-calm, cooperative
Sepsis -POA. Presentation with fever, transient tachycardia last night. Looks nontoxic currently. WBC count normal. Source of infection unclear. Blood and urine cultures are pending. Influenza and COVID negative. He has no localizing signs or
symptoms of infection. Hemodynamically stable.
Symptomatic anemia -presentation with acute on chronic anemia. Hemoglobin 6.6 this morning. Transfusion ordered. Baseline hemoglobin appears to be around 8. Baseline anemia suspect due to chronic kidney disease. Acute anemia presumed to be due
to acute blood loss anemia due to hematuria. Patient also reports hematochezia in the past few weeks. He is due to see gastroenterology on September 07. Has never had a colonoscopy or EGD.
No signs of iron deficiency based on labs, labs consistent with chronic inflammatory anemia.
Hematuria -urology input noted, going to the OR today for cystoscopy.
ESRD -on dialysis Friday, Friday, Friday.
History of renal transplant -2002, [facility]. Transplant no longer functional. Was placed back on dialysis in February 2024.
Essential hypertension -stable.
Full code
Anticipated Discharge: > 48 hours
Subjective/Interval History
-
Date of Service: August 26, 2024
Patient seen and examined. No complaints.
Objective Data
-
Labs:
Laboratory Results
08/26/24
06:19
WBC 7.0
Hgb 6.6 L*
Hct 19.8 L*
Plt Count 267
Sodium 135
Potassium 3.9
Chloride 97 L
Carbon Dioxide 33 H
BUN 25 H
Creatinine 5.1 H*
Glucose 88
Calcium 8.3 L
Vital Signs:
Vital Signs
Temp Pulse Resp BP Pulse Ox
98.5 F 82 16 130/82 96
08/26/24 10:24 08/26/24 10:24 08/26/24 10:24 08/26/24 10:24 08/26/24 11:06
I&O
08/25/24 08/26/24 08/27/24
06:59 06:59 06:59
Intake Total 530 / 530 0 / 0
Balance 530 / 530 0 / 0
Review of Systems
-
History Source: Patient
All other systems: Reviewed and negative
--- NOTE | 2024-08-26 12:23 | CM ---
Patient seen at bedside. Patient for procedure today per chart review. Patient states he lives with his parents in a 2 story home. Patient stated that he did not have any DME at home and that he does not have a PCP at this time. Patient now for HD
and patient for procedure today. Patient states that he is independent of ADL's and IADL'c CM will review HD status, patient will need to confirm HD community chair when medically appropriate for discharge. Patient uses the [facility] in [place] on
[address] CM will continue to follow for discharge planning needs.
Plan; home with HD to follow will need community chair for HD.
--- NOTE | 2024-08-26 12:59 | PTCARENOTE ---
Pt transferred to the OR for cysto, report given to receiving CRAS.
--- NOTE | 2024-08-26 15:15 | W.IMMPOSTOP ---
Surgical Immed Post Op Note
-
Primary Surgeon: Denfer
Assisting Surgeon: none
Pre-op Diagnosis: Hematuria
Post-op Diagnosis: same
Procedure Performed: Cystoscopy, retrograde pyelogram and ureteroscopy of transplant kidney
Anesthesia Type: gen
Specimen / Cultures: none
Estimated Blood Loss: none
Complications: none
Operative Findings:
- Efflux of pink urine from the transplant ureter at L bladder dome. No other source of bleeding
- [place] ureters atretic and unable to be accessed
- Retrograde pyelogram of transplant kidney without obstruction or mass filling defect
- Unable to gain ureteroscopic access to narrow transplant ureter after extensive attempts
--- NOTE | 2024-08-26 18:04 | PTCARENOTE ---
pt arrives from [facility] at 1740. pt aaox3. vss. pt oriented to unit. assessment completed. family now at bedside. pt reports tolerating his pain and has refused IV tylenol. no pressing issues at hand. plan of care continues to be followed.
[2024-08-27] VITALS (8 sets, daily range): BP systolic 112–139; BP diastolic 65–83
[2024-08-27] MEDS: STERILE WATER FOR INJECTION 10 ML IV (01:03)
[2024-08-27] MEDS: ROCEPHIN 1000 MG IV (01:03)
[2024-08-27 07:44] LABS: Hematocrit 21.6 % (39.0-52.0); Hemoglobin 7.1 g/dL (13.0-18.0)
[2024-08-27 07:57] LABS: Carbon Dioxide 32 mmol/L (22-30); Chloride 94 mmol/L (98-107); Potassium 4.7 mmol/L (3.5-5.1); Sodium 131 mmol/L (135-145)
[2024-08-27 08:02] LABS: Vancomycin Random 17.8 ug/ml
[2024-08-27] MEDS: TUMS CHEWABLE TABLET 400 MG PO ×3 (09:04→16:28)
--- NOTE | 2024-08-27 09:20 | PHA.VAN.FU ---
Vancomycin Assessment / Plan
- Assessment
Hemodialysis Schedule: MWF
In the past 24 hrs, patient has been: Afebrile
Concomitant Antimicrobials: ceftriaxone
- Assessment - Therapeutic Drug Monitoring
Random Level: pre-HD = 17.8
- Dosing Plan
Dosing by Level: Re-dose today (Vanc 750mg)
- Monitoring Plan
No level(s) ordered at this time: consider pre-HD level for Friday
- Follow Up
Pharmacy will continue to follow.
Vancomycin Follow UP
- -
Patient Age: 58
Patient Sex: Male
Vancomycin Day #: 2
Indication: Bacteremia
Requesting Provider: Dr. Simmons
Pertinent Antimicrobial Allergies:
NKDA
Height / Weight:
Height 6 ft 2 in
Actual Weight 68.13 kg
IBW in k
Pertinent Past Medical History: BMI ~19, Renal transplant (2022), ESRD HD MWF
- Vital Signs / Lab Results
Temp Pulse Resp BP Pulse Ox
98.0 F 75 18 131/80 98
08/27/24 03:00 08/27/24 07:30 08/27/24 07:30 08/27/24 07:30 08/27/24 07:30
Lab Results - Hematology
08/25/24 08/26/24
16:45 06:19
WBC 7.4 7.0
Lab Results - Chemistry
08/25/24 08/26/24
16:45 06:19
BUN 15 25 H
Creatinine 3.7 H 5.1 H*
Estimated Creat Clear 16
Albumin 3.4 L
Microbiology Results
08/25/24 21:40 Urine Culture - Final
Urine NO GROWTH
08/26/24 00:18 MRSA Screen - Final
Nose No Methicillin Resistant Staphylococcus aureus isolated.
08/26/24 00:18 Blood Culture - Preliminary
Blood/Venous No Growth in 24 hours- Final report to follow
08/26/24 00:18 Blood Culture - Preliminary
Blood/Venous No Growth in 24 hours- Final report to follow
08/26/24 00:18 Influenza Types A & B (RAVIN) - Final
Nasal Swab Negative for Influenza A & B, NAAT
Negative results must be combined with clinical observations
and patient history.
Nucleic Acid Amplification test (NAAT)performed on the
[employer] platform.
Therapeutic Drug Monitoring
Random Vancomycin 17.8 ug/ml 08/27/24 07:09
[2024-08-27] MEDS: VANCOCIN 150 IV (09:43)
--- NOTE | 2024-08-27 10:41 | W.PN.URO.CBU ---
Today's Communication / Plan
-
Planning for surgery
Transfuse today
Discharge when HGB stable
Assessment / Plan
-
58M hx of renal failure s/p transplant in , lost to follow up off immunosuppressants and admitted with failure of transplant kidney 02/2024
Since has been back on HD, now admitted with anemia after dialysis this week
Possibly contributed to by persistent gross hematuria for the past 2-3 months
s/p cystoscopy and RGP 08/26 showing source of bleeding is from the transplant kidney ureteral orifice
- Source of bleeding is likely inflammation/breakdown of transplant kidney from rejection since stopping immunosuppressants
- Recommend nephrectomy of transplant kidney
- Discussed with Dr. Ballesteros - will plan for laparoscopic hand assist nephrectomy next
- Continue regular HD schedule
- Transfuse additional 1 unit PRBCs today and trend CBC
- Stable for discharge from standpoint when HGB stabilized
Diagnosis
-
Date of Service: August 27, 2024
-
Patient Diagnosis:
Gross hematuria
Anemia
ESRD on HD
Failed transplant kidney
Post Op Day:
Subjective
-
Voiding fine with stable hematuria
Objective
-
Vital Signs
Temp Pulse Resp BP Pulse Ox
98.0 F 75 18 131/80 98
08/27/24 03:00 08/27/24 07:30 08/27/24 07:30 08/27/24 07:30 08/27/24 07:30
Intake and Output
08/26/24 08/27/24 08/28/24
06:59 06:59 06:59
Intake Total 530 / 530 610 / 610 50 / 50
Balance 530 / 530 610 / 610 50 / 50
Intake:
Oral fluids 360 / 360
IV piggybacks 530 / 530 50 / 50
Blood Product Amount Infused ( 250 / 250
mL)
Packed Rbc Leukoreduced Unit 250 / 250
[id number]
Other:
Number of approximated SMALL 1
amounts of urine
Number of approximated MODERATE 1
amounts of urine
Laboratory Results
08/27/24 07:09
08/27/24 07:09
Physical Exam
-
General - well developed, well nourished, no acute distress
Chest - clear bilaterally
Abdomen - soft, non-tender
--- NOTE | 2024-08-27 12:16 | W.PN.HOSP.TC ---
Today's Communication/Plan
-
Transfuse
Assessment / Plan
Assessment / Plan
Gen-AAOx3, NAD
HEENT-NC, AT, anicteric, clear oral mm
Neck-supple
CV-reg, no M, +S1/S2
Lungs-clear B/L
Abd-soft, NT, ND
Ext-no edema
Musculoskeletal-no cyanosis, clubbing, left upper extremity AV fistula
Skin-warm and dry
Neuro-grossly non-focal
Psych-calm, cooperative
Sepsis -POA. Isolated fever on presentation, afebrile since. Looks nontoxic currently. WBC count normal. Blood and urine cultures negative. Influenza and COVID negative. He has no localizing signs or symptoms of infection. Hemodynamically
stable.
Source of fever likely due to bleeding from failed renal transplant graft.
Symptomatic anemia -presentation with acute on chronic anemia. Hemoglobin 7.1 this morning, will transfuse second unit of blood today. Discussed with patient and urology.
Baseline hemoglobin appears to be around 8. Baseline anemia suspect due to chronic kidney disease. Acute anemia presumed to be due to acute blood loss anemia due to hematuria, bleeding from failed renal transplant graft. Patient also reports
hematochezia in the past few weeks. He is due to see gastroenterology on September 07. Has never had a colonoscopy or EGD.
No signs of iron deficiency based on labs, labs consistent with chronic inflammatory anemia.
Hematuria -urology input noted, going to the OR today for cystoscopy.
ESRD -on dialysis Friday, Friday, Friday.
History of renal transplant -2002, [facility]. Transplant no longer functional. Was placed back on dialysis in February 2024.
Urology planning on transplant explantation next week on , September 02.
Essential hypertension -stable.
Full code
Dispo - Anticipate discharge home tomorrow if hemoglobin stable, patient to return next week on for renal transplant explantation.
Anticipated Discharge: Within 24 hours
Subjective/Interval History
-
Date of Service: August 27, 2024
Patient seen/examined. No new complaints.
Objective Data
-
Labs:
Laboratory Results
08/27/24
07:09
Hgb 7.1 L
Hct 21.6 L
Sodium 131 L
Potassium 4.7
Chloride 94 L
Carbon Dioxide 32 H
Vital Signs:
Vital Signs
Temp Pulse Resp BP Pulse Ox
97.4 F 68 18 139/72 100
08/27/24 11:17 08/27/24 11:17 08/27/24 11:17 08/27/24 11:17 08/27/24 11:17
I&O
08/26/24 08/27/24 08/28/24
06:59 06:59 06:59
Intake Total 530 / 530 610 / 610 290 / 290
Balance 530 / 530 610 / 610 290 / 290
Review of Systems
-
History Source: Patient
All other systems: Reviewed and negative
--- NOTE | 2024-08-27 14:09 | W.PN.NEPH.HD ---
Assessment
-
Seen on dialysis. Receiving packed red blood cells.
Next dialysis treatment planned for Friday
Progress Note - Hemodialysis
-
Date of Service: August 27, 2024
Duration: 30 minutes and 3 hours
Potassium Bath: 3
Calcium Bath: 2.5
Opti-Dialyzer: 160
Ultrafiltration: Other (kg)
Blood Flow: 400
Dialysate Flow: 600
Heparin: no
EPO: 4000 units
[2024-08-27] MEDS: RETACRIT 10000 UNITS IV (14:43)
--- NOTE | 2024-08-27 15:37 | CM ---
Chart reviewed; met with pt
Pt reports has HD chair at [facility] schedule
Spoke with Azucena at [facility] 11:45 AM chair time - aware pt is at [facility] d/c over weekend
Plan - anticipate home no needs when medically ready
[2024-08-27] MEDS: TYLENOL 650 MG PO (19:35)
[2024-08-27] MEDS: NORVASC 10 MG PO (21:12)
[2024-08-28] MEDS: ROXICODONE 5 MG PO (04:04)
[2024-08-28 06:00] VITALS: BMI 19.3
[2024-08-28 07:45] VITALS: BP 132/82
[2024-08-28 07:53] LABS: % Basophils 0.5 % (0-2); % Eosinophils 4.6 % (0-6); % Immature Granulocytes 0.2 % (0-0.5); % Lymphocytes 15.7 % (20.5-51.1); % Monocytes 6.5 % (1.7-9.3); % Neutrophils 72.5 % (42.2-75.2); Absolute Eosinophils 0.4 10^3/uL (0-0.7); Absolute Lymphocytes 1.3 10^3/uL (1.2-3.4); Absolute Monocytes 0.5 10^3/uL (0.1-0.6); Absolute Neutrophils 5.9 10^3/uL (1.4-6.5); Hematocrit 24.6 % (39.0-52.0); Hemoglobin 7.9 g/dL (13.0-18.0); Mean Corp Hgb Conc. 32.1 g/dL (33.0-37.0); Mean Corpuscular Hgb 28.6 pg (27.0-31.0); Mean Corpuscular Volume 89.1 fL (80.0-94.0); Mean Platelet Volume 9.3 fL (7.4-10.4); Nucleated Red Blood Cells % 0 % (-); Platelet Count 289 10^3/uL (130-400); Red Blood Cell Count 2.76 10^6/uL (4.70-6.10); Red Cell Dist. Width 14.6 % (11.5-14.5); White Blood Cell Count 8.1 10^3/uL (4.8-10.8)
--- NOTE | 2024-08-28 09:21 | W.PN.HOSP.TC ---
Today's Communication/Plan
-
Transfuse
Discharge
Assessment / Plan
Assessment / Plan
Gen-AAOx3, NAD
HEENT-NC, AT, anicteric, clear oral mm
Neck-supple
CV-reg, no M, +S1/S2
Lungs-clear B/L
Abd-soft, NT, ND
Ext-no edema
Musculoskeletal-no cyanosis, clubbing, left upper extremity AV fistula
Skin-warm and dry
Neuro-grossly non-focal
Psych-calm, cooperative
Sepsis -POA. Isolated fever on presentation, afebrile since. Looks nontoxic currently. WBC count normal. Blood and urine cultures negative. Influenza and COVID negative. He has no localizing signs or symptoms of infection. Hemodynamically
stable.
Source of fever likely due to bleeding from failed renal transplant graft.
Symptomatic anemia -presentation with acute on chronic anemia. Hemoglobin 7.9 today, transfused 2 units of blood so far. Will give third unit of blood today. Hemodynamically stable.
Baseline hemoglobin appears to be around 8-9. Baseline anemia suspect due to chronic kidney disease. Acute anemia presumed to be due to acute blood loss anemia due to hematuria, bleeding from failed renal transplant graft. Patient also reports
hematochezia in the past few weeks. He is due to see gastroenterology on September 07. Has never had a colonoscopy or EGD. Stool is brown but did test positive for blood.
No signs of iron deficiency based on labs, labs consistent with chronic inflammatory anemia.
Hematuria -underwent cystoscopy 08/26 with source of bleeding being the transplant kidney.
ESRD -on dialysis Friday, Friday, Friday.
History of renal transplant -2002, [facility]. Transplant no longer functional. Was placed back on dialysis in February 2024.
Urology planning on transplant explantation next week on , September 02.
Essential hypertension -stable.
Full code
Dispo -transfused today and discharge. Follow-up next week for renal transplant explantation on as per urology.
35-minute spent in discharge process.
Anticipated Discharge: Today
Subjective/Interval History
-
Date of Service: August 28, 2024
Patient seen and examined. Complaining of discomfort over kidney transplant site.
Objective Data
-
Labs:
Laboratory Results
08/28/24
06:58
WBC 8.1
Hgb 7.9 L
Hct 24.6 L
Plt Count 289
Sodium Pending
Potassium Pending
Chloride Pending
Carbon Dioxide Pending
BUN Pending
Creatinine Pending
Glucose Pending
Calcium Pending
Vital Signs:
Vital Signs
Temp Pulse Resp BP Pulse Ox
98.1 F 86 16 132/82 97
08/28/24 07:45 08/28/24 07:45 08/28/24 07:45 08/28/24 07:45 08/28/24 07:45
I&O
08/27/24 08/28/24 08/29/24
06:59 06:59 06:59
Intake Total 610 / 610 1570 / 1570
Balance 610 / 610 1570 / 1570
Review of Systems
-
History Source: Patient
All other systems: Reviewed and negative
--- NOTE | 2024-08-28 09:25 | W.DS.TRANS ---
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
-
Discharge Instructions:
Discharge Diagnosis/Procedures Symptomatic blood loss anemia, hematuria
Diet 2 Gram Sodium,Other diet
Additional Diets 2 Gram potassium
Activity As tolerated
Driving Restrictions As prior to admission
Bathing Restrictions None
Instructions:
Stand-Alone Forms:
Changes to Home Medications: No
Discharge Medications:
DC Medications w/original date entered in [employer]
amlodipine 10 mg tablet 10 mg PO HS Blood Pressure 08/25/24
calcium carbonate (Tums) 600 mg PO MEALS indigestion 08/25/24
oxycodone-acetaminophen 5 mg-325 mg tablet 1 tab PO Q4HPRN PRN severe pain #20 tabs 08/28/24
polyethylene glycol 3350 17 gram oral powder packet 17 g PO DAILYPRN PRN constipation #0 ea 08/28/24
sennosides 8.6 mg-docusate sodium 50 mg tablet 1 tab PO BIDPRN PRN constipation #0 tabs 08/28/24
Home Medication Changes
Pending Results: No
[2024-08-28 09:47] LABS: Blood Urea Nitrogen 24 mg/dl (9-20); Calcium 8.5 mg/dl (8.4-10.2); Carbon Dioxide 29 mmol/L (22-30); Chloride 96 mmol/L (98-107); Estimated Creatinine Clearance 16 ml/min; Glucose 82 mg/dl (70-99); Potassium 3.8 mmol/L (3.5-5.1); Sodium 134 mmol/L (135-145); eGFR 13.12
[2024-08-28] MEDS: TUMS CHEWABLE TABLET 400 MG PO (09:55)
--- NOTE | 2024-08-28 10:13 | CM ---
Pt for d/c today
Reports has ride home with family
Will return to [facility] Friday
Plan - home no needs
--- NOTE | 2024-08-28 10:50 | W.PN.URO.CBU ---
Today's Communication / Plan
-
to be discharged today
HD on Fri and Fri
: - laparoscopic nephrectomy of transplant kidney
Assessment / Plan
-
58M hx of renal failure s/p transplant in , lost to follow up off immunosuppressants and admitted with failure of transplant kidney 02/2024
-- back on HD
-- admitted with anemia after dialysis this week
s/p cystoscopy and RGP 08/26 showing source of bleeding is from the transplant kidney ureteral orifice
- Source of bleeding is likely inflammation/breakdown of transplant kidney from rejection since stopping immunosuppressants
Diagnosis
-
Date of Service: August 28, 2024
-
Patient Diagnosis:
Gross hematuria
Anemia
ESRD on HD
Failed transplant kidney
Objective
-
Vital Signs
Temp Pulse Resp BP Pulse Ox
98.1 F 86 16 132/82 97
08/28/24 07:45 08/28/24 07:45 08/28/24 07:45 08/28/24 07:45 08/28/24 07:45
Intake and Output
08/27/24 08/28/24 08/29/24
06:59 06:59 06:59
Intake Total 610 / 610 1570 / 1570
Balance 610 / 610 1570 / 1570
Intake:
Oral fluids 360 / 360 1270 / 1270
IV piggybacks 50 / 50
Blood Product Amount Infused ( 250 / 250 250 / 250
mL)
Packed Rbc Leukoreduced Unit 250 / 250
[id number]
Packed Rbc Leukoreduced Unit 250 / 250
[id number]
Other:
Transfused during hemodialysis?
Packed Rbc Leukoreduced Unit Yes
[id number]
Number of approximated SMALL 1
amounts of urine
Number of approximated MODERATE 1
amounts of urine
Laboratory Results
08/28/24 06:58
08/28/24 06:58
Physical Exam
-
General - well developed, well nourished, no acute distress
Chest - clear bilaterally
Abdomen - soft, non-tender, positive bowel sounds, no CVAT, no incisional pain or distention
Genitalia - normal
Rectal - normal
Skin - warm & dry with no rash
Neuro - AOx3, no motor deficits
Extremities - no clubbing, no cyanosis, no edema
Incision - clean, dry
Dressing - clean, dry, intact
Care Review
Data Reviewed
Discussed with: Hospitalist
[2024-08-28 10:54] VITALS: BP 138/84
[2024-08-28 11:17] VITALS: BP 141/79
--- NOTE | 2024-08-28 11:46 | W.PN.NEPH.PH ---
Today's Communication / Plan
-
Okay for discharge from renal standpoint
Assessment/Plan
-
Assessment
ESRD
Gross hematuria
Left upper extremity AV fistula
donor renal transplant failed
Biopsy-proven IgA nephropathy
hypertension
Anemia acute
Plan
Plan for dialysis tomorrow outpatient
For blood transfusion packed red blood cells
Nephrectomy on
Otherwise okay for discharge from renal standpoint
-
-
Date of Service: August 28, 2024
CC / HPI / ROS
-
No chest pain or shortness of breath
Moderate pain at transplant site.
Labs
-
Labs:
WBC 8.1 10^3/uL (4.8-10.8) 08/28/24 06:58
RBC 2.76 10^6/uL (4.70-6.10) L 08/28/24 06:58
Hgb 7.9 g/dL (13.0-18.0) L 08/28/24 06:58
Hct 24.6 % (39.0-52.0) L 08/28/24 06:58
Plt Count 289 10^3/uL (130-400) 08/28/24 06:58
Sodium 134 mmol/L (135-145) L 08/28/24 06:58
Potassium 3.8 mmol/L (3.5-5.1) 08/28/24 06:58
Chloride 96 mmol/L (98-107) L 08/28/24 06:58
Carbon Dioxide 29 mmol/L (22-30) 08/28/24 06:58
BUN 24 mg/dl (9-20) H 08/28/24 06:58
Creatinine 4.9 mg/dL (0.7-1.3) H* 08/28/24 06:58
eGFR 13.12 08/28/24 06:58
Glucose 82 mg/dl (70-99) 08/28/24 06:58
Calcium 8.5 mg/dl (8.4-10.2) 08/28/24 06:58
Albumin 3.4 g/dl (3.5-5.0) L 08/25/24 16:45
Physical Exam
-
Vital Signs:
Vital Signs
Temp Pulse Resp BP Pulse Ox
97.9 F 93 18 138/84 97
08/28/24 10:54 08/28/24 10:54 08/28/24 10:54 08/28/24 10:54 08/28/24 07:45
Cardiovascular:: Regular rate and rhythm
Respiratory:: Bilateral: Coarse
Lung Excursion:: Normal
Abdomen:: Nontender and Soft
Bowel Sounds:: Normal
Extremity Edema:: None: Bilateral:
--- NOTE | 2024-08-28 12:24 | PTCARENOTE ---
Patient OOB ambulating in room with a steady gait. Patient made aware he will be discharged after 1u PRBC. Patient verbalized understanding.
[2024-08-28 14:40] VITALS: BP 143/94
[2024-08-28] MEDS: TUMS CHEWABLE TABLET PO (15:12)
== END 2024-08-28 15:34 | disposition home or self-care (01) | DRG 871 ==
LOC: 2 SOUTH 22:48
PROVIDERS: Internal Medicine Nephrology; Nurse Practitioner Family; Registered Nurse; ADMITTING PHYSICIAN Internal Medicine; ATTENDING PHYSICIAN Hospitalist; CONSULT PHYSICIAN Specialist; CONSULT PHYSICIAN Urology; EMERGENCY PHYSICIAN Emergency Medicine
PROC: 30233N1 Transfusion of Nonautologous Red Blood Cells into Peripheral Vein, Percutaneous Approach (ICD-10-PCS; 2024-08-26)
PROC: 0TJB8ZZ Inspection of Bladder, Via Natural or Artificial Opening Endoscopic (ICD-10-PCS; 2024-08-26)
PROC: 0TJ98ZZ Inspection of Ureter, Via Natural or Artificial Opening Endoscopic (ICD-10-PCS; 2024-08-26)
PROC: BT1F1ZZ Fluoroscopy of Left Kidney, Ureter and Bladder using Low Osmolar Contrast (ICD-10-PCS; 2024-08-26)
PROC: 5A1D70Z Performance of Urinary Filtration, Intermittent, Less than 6 Hours Per Day (ICD-10-PCS; 2024-08-27)
DX: A41.9 Sepsis, unspecified organism (principal); N18.6 End stage renal disease; T86.12 Kidney transplant failure; I12.0 Hypertensive chronic kidney disease with stage 5 chronic kidney disease or end stage renal disease; Y83.0 Surgical operation with transplant of whole organ as the cause of abnormal reaction of the patient, or of later complication, without mention of misadventure at the time of the procedure; D64.9 Anemia, unspecified; Z99.2 Dependence on renal dialysis; Z11.52 Encounter for screening for COVID-19
CPT/HCPCS: 74176; 74420; 76000; 76776; 80048; 80051; 80053; 80202; 81003; 81015; 82728; 83540; 83550; 85014; 85018; 85025; 85027; 86850; 86900; 86901; 86920; 87040; 87070; 87086; 87502; 87811; 99285; A4300; C1769; C1894; G0257; P9016; P9047; Q5106

== ENCOUNTER 2024-11-04 06:21 | Day surgery (SDC) | payer BC, SELFPAY | END 2024-11-04 15:54 | disposition home or self-care (01) | LOC: GI 06:21 | PROVIDERS: ATTENDING PHYSICIAN Internal Medicine Gastroenterology | DX: D50.0 Iron deficiency anemia secondary to blood loss (chronic) (principal); K57.30 Diverticulosis of large intestine without perforation or abscess without bleeding; K64.8 Other hemorrhoids; K31.7 Polyp of stomach and duodenum; K57.10 Diverticulosis of small intestine without perforation or abscess without bleeding; D12.2 Benign neoplasm of ascending colon; D12.8 Benign neoplasm of rectum | CPT/HCPCS: 45385; 43239; 88305 ==

== ENCOUNTER 2025-02-24 05:46 | Inpatient (IN) | payer BC, SELFPAY ==
[2025-02-24] VITALS (12 sets, daily range): BP systolic 83–150; BP diastolic 53–94; PULSE 83; O2SAT 93; BMI 18.4; BMI 17.9
--- NOTE | 2025-02-24 02:25 | ED.GENMED ---
History of Present Illness
<Gris Roach PA-C - Last Filed: 03/07/25 06:18>
General
Chief Complaint: Chest Pain
Source: patient
Exam Limitations: none
Time Seen by Provider: 02/24/25 02:24
Nursing documentation reviewed up to this point in time: agreed with
History of Present Illness
History of Present Illness:
59 y/o M
IgA nephropathy
cardiac arrest 20s
CKD, s/p transplant 2002 which failed
on HD m/w/
[facility] hospitalization december for nearly 2 mo for [place]
says he had some ches tpain while he was there but no [place]
doesn' tknow what tests he had done
no cath
started this morning 1 am with chest pain central, pressure, was rated 8/10 but given 2 SL nitro by NH and then 1 SL by ems and now 2-4/10
pt has some SOB
he also has a fever, was unawre of fever
hoarse voice, has been since [place]
no known pericarditis/pericardial effuison thoguh pt doesn't really know much detail
he has also a clot in LUE
fisula in LUE forearm
Past History
<Gris Roach PA-C - Last Filed: 03/07/25 06:18>
Past History
ED Past Medical History: HTN and Renal failure (Renal transplant 2002)
ED Past Surgical History: Other (Renal transplant 2002; AV fistula left forearm)
Social History
Tobacco: Non-smoker
Alcohol: None
Drug: None
Personal: Single
Living: with family
Employment: Not employed
Family History
Family History: Hypertension
Review of Systems
<Gris Roach PA-C - Last Filed: 03/07/25 06:18>
Review of Systems
Allergies reviewed?: Yes
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
All Other Systems: Not applicable
Phy Exam
<Gris Roach PA-C - Last Filed: 03/07/25 06:18>
Physical Exam
Physical Exam:
GENERAL: awake, deconditioned, chroniclaly ill; hoarse voice hard to hear
EYE: pupils equal and reactive
NECK: Supple
ENT: o/p clr, mmm.
CARDIAC: Regular rate and rhythm . LUE fistula
JVD
LUNGS: Clear breath sounds bilaterally, no acute respiratory distress, no wheezes/rales/rhonchi
ABDOMEN: Soft, without focal tenderness, no r/g, no cvat, normal bowel sounds
NEUROLOGICAL: Alert and oriented, no focal neuro deficits
SKIN: Warm and dry, skin intact. fistula
MUSCULOSKELETAL: No edema, well perfused. neg rajat's sign
PSYCH: Normal and appropriate interaction.
Scores
<Gris Roach PA-C - Last Filed: 03/07/25 06:18>
Heart Score for Chest Pain Patients
STEMI patient?: No
History: Moderately Suspicious
ECG: Nonspecific Repolarization
Age: >45 - <65 years
Risk Factors: >/= 3 Risk Factors or History of CAD
Troponin: </= Normal Limit
Heart Score for Chest Pain Patients: 5
Heart Score Risk: 20.3% MACE over next 6 weeks
Course
<Gris Roach PA-C - Last Filed: 03/07/25 06:18>
Orders/Labs/Results
Orders:
Orders
02/24/25 02:25
Electrocardiogram (*1) Urgent
Reason for Study: Chest Pain
EKG- Treatment ONCE
02/24/25 02:33
Complete Blood Count/With Diff Urgent
Comprehensive Metabolic Panel Urgent
NT-proBNP Urgent
Comment: ADDED
Troponin I Urgent
02/24/25 02:43
Acetaminophen [Tylenol] 650 mg PO NOW STA
02/24/25 02:45
CR Chest - 2 Views Urgent
Comment:
Reason For Exam: ches tpain, fever
02/24/25 02:47
Add On- LAB Urgent
Tests Added?: bnp
02/24/25 02:51
Venous Doppler Upr Ext Left [US Periph Venous UPPER Ext LT] Urgent
Comment:
Reason For Exam: LUE swelling, fever;
02/24/25 02:53
COVID-19 Antigen Urgent
Source: Nasal Swab
Influenza A+B Rapid Molecular Urgent
PETRA Source: Nasal Swab
Specimen Description:
02/24/25 03:07
Lactic Acid Urgent
Blood Culture Q30M
PETRA Source: Blood/Venous
Specimen Description:
Blood Culture Q30M
PETRA Source: Blood/Venous
Specimen Description:
02/24/25 03:55
Piperacillin/Tazo 3.375 Gram [Zosyn] 3.375 gram in 50 ml IV NOW
02/24/25 03:56
Vancomycin [Vancocin] 1,500 mg 0.9% Sodium Chloride 500 ml [Nss] 500 ml IV NOW
02/24/25 04:34
Admit/Transfer Patient As Directed
Co-Sign Provider:
Level of Care: Inpatient admission
Assign to:: Telemetry
Physician / Group: Iris
Diagnosis: pneumonia
Reason for Telemetry: Chest Pain syndromes
Date to Stop Telemetry: 02/26/25
Time to Stop Telemetry: 11:00
Reason for Hospitalization: health care acquired pneumonia
Expected length of stay greater than two midnights?: Yes
ELOS- Estimated Length of Stay in days: 2
I certify the patient meets the requirements for IP care: Yes
PRN Pain Medication Management As Directed
May give lesser potent ordered pain med per pt: Yes
preference::
Protocol:: Medication orders for pain may be administered in a
manner that supports deferring to patient preference
when the pt is:
- Requesting an ordered lesser potent pain medication.
Least to most potent pain medications are defined
as: acetaminophen < NSAID < tramadol < opioids
(morphine, oxycodone, hydromorphone).
- Requesting a lesser dose of the same medication IF
ORDERED.
- Requesting a less intrusive route of administration
if both routes are prescribed by the provider (PO <
IV).
02/24/25 04:42
Code Status As Directed
Resuscitation Status: Full Code
02/24/25 06:28
Acetaminophen [Tylenol] 650 mg PO Q4HPRN PRN
Bisacodyl [Dulcolax] 10 mg RECTAL DAILYPRN PRN
HydrOXYZINE [Atarax] 25 mg PO QIDPRN PRN
Nitroglycerin Sublingual [Nitrostat (Sublingual)] 0.4 mg SL [id number] PRN
Ondansetron Injectable [Zofran] 4 mg IV Q6HPRN PRN
Polyethylene Glycol Powder [Miralax] 17 grams PO DAILYPRN PRN constipation
Sorbitol Solution [Sorbitol 70% Solution] 30 ml PO Q24H PRN
VANCOMYCIN Pharmacy to Dose [VANCOCIN Pharmacy to Dose] 1 each Pharmacy To Prepare [Call Pharmacy To Prepare] 0 ml IV PER PROTOCOL
02/24/25 06:28
Respiratory Culture/Gram Stain Urgent
PETRA Source: Sputum
Specimen Description:
Activity As Directed
Activity Level: Out of Bed-Early Mobility
Intake/ Output As Directed
Frequency: Per unit guidelines
Vital Signs As Directed
Frequency: Per unit guidelines
Weight As Directed
Frequency: Once
Comment: on admission
Oxygen Therapy [O2 Therapy] [RESP] Routine
Nasal Cannula Liter Flow: 2 LPM
Titrate/Wean O2 to maintain O2 sat greater than (%): 93
DX Deep Vein Thrombosis Video Routine
02/24/25 07:00
Clonidine [Zbetrahm-Wgj-5] 0.2 mg TRANSDERM Q7D
02/24/25 07:30
Metoclopramide [Reglan] 10 mg PO ACHS
02/24/25 08:00
Amiodarone [Pacerone] 200 mg PO DAILY
Cholecalciferol (Vitamin D3) [VITAMIN D3 (cholecalciferol)] 10 mcg PO DAILY
Docusate Sodium [Colace] 100 mg PO BID
Docusate W/Senna [Senokot-S] 2 tablet PO BID
Doxycycline [Vibramycin] 100 mg PO BID
FOLic ACID [Folvite] 1 mg PO DAILY
Heparin 5,000 units SC Q8
HydrALAZINE [Apresoline] 50 mg PO BID
Levetiracetam [Keppra] 500 mg PO DAILY
Lidocaine [Lidocaine 4% Patch] 1 patch TOPICAL DAILY
Losartan [Cozaar] 50 mg PO BID
NIFEdipine EXTENDED RELEASE [Procardia Xl (Extended Release)] 60 mg PO DAILY
Pantoprazole [Protonix] 40 mg PO BID
Prednisone [Deltasone] 3 mg PO DAILY
Sevelamer Carbonate [Renvela] 800 mg PO MEALS
Tacrolimus [Prograf] 0.5 mg PO BID
Thiamine HCl [Vitamin B1] 100 mg PO DAILY
02/24/25 18:00
Cefepime HCl [Maxipime] 1,000 mg IV QPM
02/24/25 22:00
Artificial Tears (Pf) [Refresh Eye Drops (Pf)] 1 drops BOTH EYES HS
Gabapentin [Neurontin] 100 mg PO HS
Melatonin 3 mg PO HS
02/25/25 07:56
Lipid Profile [Cardiovascular Evaluation] IN AM
Troponin I IN AM
02/25/25 08:00
Levetiracetam [Keppra] 250 mg PO MoWeFr@0800
02/26/25 11:00
DC Protocol for Telemetry ONCE
Abnormal Lab Results
02/24/25 02/24/25
02:33 03:07
RBC 2.55 L 10^6/uL
(4.70-6.10)
Hgb 7.3 L g/dL
(13.0-18.0)
Hct 22.1 L %
(39.0-52.0)
RDW 17.2 H %
(11.5-14.5)
Absolute Lymphs (auto) 0.8 L 10^3/uL
(1.2-3.4)
Neutrophils % 75.5 H %
(42.2-75.2)
Lymphocytes % 12.4 L %
(20.5-51.1)
Sodium 131 L mmol/L
(135-145)
BUN 24 H mg/dl
(9-20)
Creatinine 3.1 H mg/dL
(0.7-1.3)
Lactic Acid 0.6 L mmol/L
(0.7-2.0)
AST 11 L U/L
(17-59)
Total Protein 5.6 L g/dl
(6.3-8.2)
Albumin 3.0 L g/dl
(3.5-5.0)
02/24/25 02:33
02/24/25 02:33
Vital Signs
Initial and Last Documented VS:
Initial Vital Signs
Pulse Resp Pulse Ox
91 23 94
02/24/25 02:25 02/24/25 02:25 02/24/25 02:25
Last Documented Vital Signs
Temp Pulse Resp BP Pulse Ox
36.9 C 67 14 136/86 98
03/06/25 23:24 03/06/25 23:24 03/06/25 23:24 03/06/25 23:24 03/06/25 23:24
<Jagdeep Mendoza, DO - Last Filed: 02/24/25 02:56>
Orders/Labs/Results
Orders:
Orders
02/24/25 02:25
Electrocardiogram (*1) Urgent
Reason for Study: Chest Pain
EKG- Treatment ONCE
02/24/25 02:33
Complete Blood Count/With Diff Urgent
Comprehensive Metabolic Panel Urgent
NT-proBNP Urgent
Comment: ADDED
Troponin I Urgent
02/24/25 02:43
Acetaminophen [Tylenol] 650 mg PO NOW STA
02/24/25 02:45
CR Chest - 2 Views Urgent
Comment:
Reason For Exam: ches tpain, fever
02/24/25 02:47
Add On- LAB Urgent
Tests Added?: bnp
02/24/25 02:51
Venous Doppler Upr Ext Left [US Periph Venous UPPER Ext LT] Urgent
Comment:
Reason For Exam: LUE swelling, fever;
02/24/25 02:53
COVID-19 Antigen Urgent
Source: Nasal Swab
Influenza A+B Rapid Molecular Urgent
PETRA Source: Nasal Swab
Specimen Description:
02/24/25 03:07
Lactic Acid Urgent
Blood Culture Q30M
PETRA Source: Blood/Venous
Specimen Description:
Blood Culture Q30M
PETRA Source: Blood/Venous
Specimen Description:
02/24/25 03:55
Piperacillin/Tazo 3.375 Gram [Zosyn] 3.375 gram in 50 ml IV NOW
02/24/25 03:56
Vancomycin [Vancocin] 1,500 mg 0.9% Sodium Chloride 500 ml [Nss] 500 ml IV NOW
02/24/25 04:34
Admit/Transfer Patient As Directed
Co-Sign Provider:
Level of Care: Inpatient admission
Assign to:: Telemetry
Physician / Group: Iris
Diagnosis: pneumonia
Reason for Telemetry: Chest Pain syndromes
Date to Stop Telemetry: 02/26/25
Time to Stop Telemetry: 11:00
Reason for Hospitalization: health care acquired pneumonia
Expected length of stay greater than two midnights?: Yes
ELOS- Estimated Length of Stay in days: 2
I certify the patient meets the requirements for IP care: Yes
PRN Pain Medication Management As Directed
May give lesser potent ordered pain med per pt: Yes
preference::
Protocol:: Medication orders for pain may be administered in a
manner that supports deferring to patient preference
when the pt is:
- Requesting an ordered lesser potent pain medication.
Least to most potent pain medications are defined
as: acetaminophen < NSAID < tramadol < opioids
(morphine, oxycodone, hydromorphone).
- Requesting a lesser dose of the same medication IF
ORDERED.
- Requesting a less intrusive route of administration
if both routes are prescribed by the provider (PO <
IV).
02/24/25 04:42
Code Status As Directed
Resuscitation Status: Full Code
02/24/25 06:28
Acetaminophen [Tylenol] 650 mg PO Q4HPRN PRN
Bisacodyl [Dulcolax] 10 mg RECTAL DAILYPRN PRN
HydrOXYZINE [Atarax] 25 mg PO QIDPRN PRN
Nitroglycerin Sublingual [Nitrostat (Sublingual)] 0.4 mg SL [id number] PRN
Ondansetron Injectable [Zofran] 4 mg IV Q6HPRN PRN
Polyethylene Glycol Powder [Miralax] 17 grams PO DAILYPRN PRN constipation
Sorbitol Solution [Sorbitol 70% Solution] 30 ml PO Q24H PRN
VANCOMYCIN Pharmacy to Dose [VANCOCIN Pharmacy to Dose] 1 each Pharmacy To Prepare [Call Pharmacy To Prepare] 0 ml IV PER PROTOCOL
02/24/25 06:28
Respiratory Culture/Gram Stain Urgent
PETRA Source: Sputum
Specimen Description:
Activity As Directed
Activity Level: Out of Bed-Early Mobility
Intake/ Output As Directed
Frequency: Per unit guidelines
Vital Signs As Directed
Frequency: Per unit guidelines
Weight As Directed
Frequency: Once
Comment: on admission
Oxygen Therapy [O2 Therapy] [RESP] Routine
Nasal Cannula Liter Flow: 2 LPM
Titrate/Wean O2 to maintain O2 sat greater than (%): 93
DX Deep Vein Thrombosis Video Routine
02/24/25 07:00
Clonidine [Dywxdbjx-Lbg-2] 0.2 mg TRANSDERM Q7D
02/24/25 07:30
Metoclopramide [Reglan] 10 mg PO ACHS
02/24/25 08:00
Amiodarone [Pacerone] 200 mg PO DAILY
Cholecalciferol (Vitamin D3) [VITAMIN D3 (cholecalciferol)] 10 mcg PO DAILY
Docusate Sodium [Colace] 100 mg PO BID
Docusate W/Senna [Senokot-S] 2 tablet PO BID
Doxycycline [Vibramycin] 100 mg PO BID
FOLic ACID [Folvite] 1 mg PO DAILY
Heparin 5,000 units SC Q8
HydrALAZINE [Apresoline] 50 mg PO BID
Levetiracetam [Keppra] 500 mg PO DAILY
Lidocaine [Lidocaine 4% Patch] 1 patch TOPICAL DAILY
Losartan [Cozaar] 50 mg PO BID
NIFEdipine EXTENDED RELEASE [Procardia Xl (Extended Release)] 60 mg PO DAILY
Pantoprazole [Protonix] 40 mg PO BID
Prednisone [Deltasone] 3 mg PO DAILY
Sevelamer Carbonate [Renvela] 800 mg PO MEALS
Tacrolimus [Prograf] 0.5 mg PO BID
Thiamine HCl [Vitamin B1] 100 mg PO DAILY
02/24/25 18:00
Cefepime HCl [Maxipime] 1,000 mg IV QPM
02/24/25 22:00
Artificial Tears (Pf) [Refresh Eye Drops (Pf)] 1 drops BOTH EYES HS
Gabapentin [Neurontin] 100 mg PO HS
Melatonin 3 mg PO HS
02/25/25 07:56
Lipid Profile [Cardiovascular Evaluation] IN AM
Troponin I IN AM
02/25/25 08:00
Levetiracetam [Keppra] 250 mg PO MoWeFr@0800
02/26/25 11:00
DC Protocol for Telemetry ONCE
Abnormal Lab Results
02/24/25 02/24/25
02:33 03:07
RBC 2.55 L 10^6/uL
(4.70-6.10)
Hgb 7.3 L g/dL
(13.0-18.0)
Hct 22.1 L %
(39.0-52.0)
RDW 17.2 H %
(11.5-14.5)
Absolute Lymphs (auto) 0.8 L 10^3/uL
(1.2-3.4)
Neutrophils % 75.5 H %
(42.2-75.2)
Lymphocytes % 12.4 L %
(20.5-51.1)
Sodium 131 L mmol/L
(135-145)
BUN 24 H mg/dl
(9-20)
Creatinine 3.1 H mg/dL
(0.7-1.3)
Lactic Acid 0.6 L mmol/L
(0.7-2.0)
AST 11 L U/L
(17-59)
Total Protein 5.6 L g/dl
(6.3-8.2)
Albumin 3.0 L g/dl
(3.5-5.0)
02/24/25 02:33
02/24/25 02:33
Vital Signs
Initial and Last Documented VS:
Initial Vital Signs
Pulse Resp Pulse Ox
91 23 94
02/24/25 02:25 02/24/25 02:25 02/24/25 02:25
Last Documented Vital Signs
Temp Pulse Resp BP Pulse Ox
36.9 C 67 14 136/86 98
03/06/25 23:24 03/06/25 23:24 03/06/25 23:24 03/06/25 23:24 03/06/25 23:24
<Gris Roach PA-C - Last Filed: 03/07/25 06:18>
MDM/Problems Addressed
Differential Diagnosis Includes:
pneumonjia ACS, PE, covid, flu
MDM/Problems Addressed:
corbin quintanilla 59 y/o M from
igA nephropathy, s/p kid txp that failed, on HD [facility]
hospitalization [place] 2 mo ago ([facility])
deconditioned, very weak
chjest pressure tonight with sob at 1 am
got 3 SL nitro prehostpial ekg nonischemic, trop 0.03
found to be febrile here
looks chroinclaly ill
cxr indep reviewed by me and dr. mendoza; looks like retrocardiac infiltrate, cardiomegaly; stable vitals; no hypoxia
vanc/zosyn
seen by ed attending
<Gris Roach PA-C - Last Filed: 03/07/25 06:18>
*Pulse Oximetry
Patient hypoxic: no (94)
*Critical Care Note
Total Time (30-74mins, 75-104mins- exclusive of procedures): Not Applicable
ED Attending Note
<Gris Roach PA-C - Last Filed: 03/07/25 06:18>
-
Portions of this chart may have been created with voice recognition software.� Occasional wrong word or��sound alike� substitutions may have occurred due to the inherent limitations of voice recognition software.
<Jagdeep Mendoza DO - Last Filed: 02/24/25 02:56>
ED Attending Note
Patient seen and examined by attending physician: Yes
ED Attending Note:
I have reviewed and agree with patient treatment plan by Gris Roach PA-C. My exam revealed
Physical Exam
General: Chronic ill appearance, temperature 100.5
Neck: supple. no meningeal signs. normal posterior pharynx
Heart: s1/s2 regular rate and rhythm, no murmur. equal radial
pulses.
HEENT: Pupils equal round reactive to light, EOMI, 2 L nasal cannula
Lungs: no acute respiratory distress. clear bilaterally
Abdomen: normal bowel sounds. not tender. no CVAT
Neuro: alert and oriented. no focal neurological deficits cranial nerves II through XII intact
Skin: no rash
Psychiatric: well kept. interactive and cooperative
Extremities: no edema. no calf tenderness. negative homans. good distal pulses, AV fistula left arm
59-year-old male with chest pain which did improve after nitroglycerin, and fever 100.5. Blood cultures drawn. Chest x-ray pending. Will plan to admit determine source of infection and further evaluate chest pain
Discharge Plan
Departure
Patient Disposition: Admit
Date of Disposition: 02/24/25
Time of Disposition: 03:56
Admit to: Telemetry
Presentation/result/management discussed w/ accepting MD/DO: Hospitalist
Condition: Fair
Covid-19: Negative COVID-19
Discharge Problem:
Pneumonia, Fever, Chest pain
Interventions
Interventions:
*Risk Screen - Suicide Last Done: 02/24/25 02:42
*General Assessment Last Done: 02/24/25 02:40
*Neglect/Abuse Screening Last Done: 02/24/25 02:40
*ED- Fall Risk Assessment Last Done: 02/24/25 02:39
*ED COVID-19 Vaccine History Last Done: 02/24/25 02:39
ED- Cardiac Assessment Last Done: 02/24/25 02:34
*Nursing Disposition Last Done: 02/24/25 06:20
Discharge Date and Time
Discharge Date/Time: 02/24/25 06:21
[2025-02-24 02:48] LABS: Hematocrit 22.1 % (39.0-52.0); Hemoglobin 7.3 g/dL (13.0-18.0); Mean Corp Hgb Conc. 33.0 g/dL (33.0-37.0); Mean Corpuscular Volume 86.7 fL (80.0-94.0); Nucleated Red Blood Cells % 0 % (-); Platelet Count 142 10^3/uL (130-400); Red Cell Dist. Width 17.2 % (11.5-14.5)
[2025-02-24 03:12] LABS: ALT (SGPT) 11 U/L (0-50); AST (SGOT) 11 U/L (17-59); Albumin 3.0 g/dl (3.5-5.0); Alkaline Phosphatase 79 U/L (38-126); Blood Urea Nitrogen 24 mg/dl (9-20); Calcium 8.7 mg/dl (8.4-10.2); Carbon Dioxide 30 mmol/L (22-30); Chloride 99 mmol/L (98-107); Estimated Creatinine Clearance 24 ml/min; Glucose 83 mg/dl (70-99); Potassium 4.3 mmol/L (3.5-5.1); Sodium 131 mmol/L (135-145); Total Protein 5.6 g/dl (6.3-8.2); eGFR 22.58
[2025-02-24] MEDS: TYLENOL 650 MG PO (03:16)
[2025-02-24 03:25] LABS: Troponin I 0.033 ng/ml
[2025-02-24 03:41] LABS: COVID-19 Antigen Negative (Negative)
--- NOTE | 2025-02-24 04:14 | HPS.HSE ---
Family Physician
-
Family Physician:
Chief Complaint
-
Chest pain
History of Present Illness
Patient is a 59-year-old male with past medical history significant for HTN renal disease status post kidney transplant with now failed transplant on hemodialysis Friday, hypertension, hyperlipidemia, and recent admission 2 months
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
Patient complains of acute onset of chest pressure over the left chest area. Shortness of breath as well as nausea.
Patient is a fairly poor story and. Family reported that about 2 days ago he became more lethargic and less responsive. He had been transferred to rehab from outside hospital after prolonged treatment for West Nile virus.. He developed profound
neurological weakness and is now nonambulatory.
Patient himself denies having any cough fevers or chills. He denies any vomiting. He does have chronic nausea for which he is on multiple antiemetics. He also has a chronic constipation and reports no bowel movement in about 7 days. He denies
any abdominal pain. He does not make any urine. He is status post kidney transplant that failed and is still being on hemodialysis Friday via a left upper extremity AV fistula.
He reports history of sudden cardiac arrest at age 30. No pacemaker or AICD and he is had normal cardiac function since. He thought it was in the setting of renal failure with IgA nephropathy. Patient reports history of atrial fibrillation and is
on amiodarone but states he has never been on anticoagulation. He denies having any palpitations.
Here in the emergency department he had a temp of 100.5, he is not hypoxic. Blood pressure was stable at 150/80 with a pulse of 90. ECG shows a normal sinus rhythm with a rate of [address] or T wave changes. Troponin was negative at 0.03.
His BNP was elevated at 27,000. Chest x-ray shows likely left-sided retrocardiac opacity.
Medical History
Past Medical History
Past Medical History: Reports CAD, HTN, Hypercholesterolemia, Renal Failure (ESRD on hemodialysis Friday for a left upper extremity AV fistula,), Seizures and Other (Cardiac arrest)
Past Surgical History: Reports Urological (This is due to a kidney transplant 2002, left radiocephalic fistula 1998,)
Social History
Tobacco: Non-smoker
Alcohol: None
Drug: None
Personal: Single
Living: With Family
Family History
Family History: Not pertinent
Allergies / Home Medications
Allergies reflects when Allergies were last updated in [facility] [employer] [facility].
Home Medications with original date entered in [employer] [facility]
Allergy/Medication List:
Allergies
Allergy/AdvReac Type Severity Reaction Status Date / Time
No Known Allergies Allergy Unverified 02/27/24 16:38
Home Medications
amlodipine 10 mg tablet 10 mg PO HS Blood Pressure 08/25/24
calcium carbonate (Tums) 600 mg PO MEALS indigestion 08/25/24
oxycodone-acetaminophen 5 mg-325 mg tablet 1 tab PO Q4HPRN PRN severe pain #20 tabs 08/28/24
polyethylene glycol 3350 17 gram oral powder packet 17 g PO DAILYPRN PRN constipation #0 ea 08/28/24
sennosides 8.6 mg-docusate sodium 50 mg tablet 1 tab PO BIDPRN PRN constipation #0 tabs 08/28/24
Losartan 50 mg PO BID 02/24/25
hydralazine 50 mg PO BID 02/24/25
metoclopramide HCl 10 ml PO 4XD 02/24/25
pantoprazole 40 mg PO BID 02/24/25
Review of Systems
-
History Source: Patient
Constitutional: Reports No Symptoms
EENT: Reports No Symptoms
Respiratory: Reports No Symptoms
Cardiac: Reports Chest Pain
Abdomen/GI: Reports No Symptoms
: Reports No Symptoms
Musculoskeletal: Reports No Symptoms
Skin: Reports No Symptoms
Neurological: Reports No Symptoms
Endocrine: Reports No Symptoms
Hematologic/Lymphatic: Reports No Symptoms
Psych: Reports No Symptoms
Physical Exam
Vital Signs
Vital Signs
Temp Pulse Resp BP Pulse Ox
100.5 F H 90 23 150/88 95
02/24/25 02:26 02/24/25 02:26 02/24/25 02:26 02/24/25 02:26 02/24/25 02:26
Physical Exam
General: Well Developed, Well Nourished, No Apparent Distress and Comfortable
HEENT: NormoCephalic, Anicteric, Moist mucous membranes and Atraumatic
Respiratory: Clear
Cardiac: S1/S2 and Regular Rhythm
GI: Soft, Non Tender, Non Distended and Normal Bowel Sounds
Rectal: Deferred by Provider
Genito-urinary: Deferred by me
Musculoskeletal: No Clubbing, No Cyanosis, No Edema and Other (Left upper extremity AV fistula with good thrill and bruit)
Skin: Warm
Neuro: AO x 3 and Nonfocal/grossly intact
Hematologic/Lymphatic: No Lymphadenopathy
Laboratory Results
-
02/24/25 02:33
02/24/25 02:33
Laboratory Results
Lactic Acid 0.6 mmol/L (0.7-2.0) L 02/24/25 03:07
Total Bilirubin 0.8 mg/dl (0.2-1.3) 02/24/25 02:33
AST 11 U/L (17-59) L 02/24/25 02:33
ALT 11 U/L (0-50) 02/24/25 02:33
Alkaline Phosphatase 79 U/L (38-126) 02/24/25 02:33
Troponin I 0.033 ng/ml 02/24/25 02:33
Data Reviewed
-
Diagnostic Radiology: Image Personally Visualized and interpreted
Medical Tests (Nuc Med, Echo, EKG etc): Image Personally Visualized and interpreted
Lab Data: Labs Reviewed by me
Old Records: Reviewed
Impression/Plan
-
IMPRESSION:
59-year-old with multiple medical comorbidities most notably end-stage renal disease with failed kidney transplant currently on hemodialysis Friday, history of hypertension, seizure disorder, recent admission for West Nile
encephalitis with epilepsy dysfunction, history of sudden cardiac arrest presenting to the emergency with sudden onset chest pressure and shortness of breath with associated nausea. Ischemic findings were negative with normal ECG, troponin of
0.033. However he had an x-ray with a new retrocardiac opacity. He had a temp of 100.5. CBC was unremarkable. His electrolytes were stable. BUN/creatinine reflective of ESRD. Patient is currently hemodynamically stable and not hypoxic.
PLAN:
Pneumonia -retrocardiac opacity, fever. Immunosuppressed and recent hospitalization and stay in rehab facility
- Admit to tele in case of resurgence of chest pain,
- no indication to trend troponins at this time given chest pain is likely secondary to his retrocardiac opacity.
- Blood cultures
- Patient not coughing, sputum if coughing
- Check Legionella and streptococcal antigen
- Agree with continuation of vancomycin, dosed with dialysis
- Will treat with cefepime+vanc for now
- Monitor for hypoxia or hemodynamic
- As needed nebs
CHest pain - suspect non-cardiac. Trop neg, no ischemia
- repeat trop in AM
- ntg prn chest pain (on order from rehab)
- lipid panel in am
End-stage renal disease -no indication for emergent dialysis
- Dialysis due Friday-nephrology consult
- Fluid and salt restriction, continue sevelamer
- He is continued on antirejection taper with tacrolimus 0.5 mg twice daily and prednisone 1 mg
Elevated BNP - Hx of cardiac arrest unclear etiology unclear. Last echo here LVEF is 60-65% by visual estimation. Mild concentric LVH. Normal diastolic function.
- likely from renal failure. No indication of acute volume overload
History of cardiac arrest/afib
- No defibrillator noted, continue Amio
- unclear why he is not ac and can't be sure of hx
Hypertension
-Clonidine patch, continue nifedipine 60 daily, hydralazine 50 twice daily, losartan 50 twice daily
DVT PPX - heparin sq
Code status - Full code
[2025-02-24] MEDS: ZOSYN 50 IV (04:36)
[2025-02-24] MEDS: VANCOCIN 530 MG IV (05:06)
--- NOTE | 2025-02-24 06:41 | PTCARENOTE ---
02/24: pt arrived via stretcher at 0640am. pt drowsy but responsive. pt pulled over from stretcher. oriented to room. callbell within reach.
[2025-02-24] MEDS: PACERONE 200 MG PO (08:59)
[2025-02-24] MEDS: PROCARDIA XL (EXTENDED RELEASE) 60 MG PO (08:59)
[2025-02-24] MEDS: COZAAR 50 MG PO (08:59)
[2025-02-24] MEDS: REGLAN 10 MG PO (08:59)
[2025-02-24] MEDS: PROGRAF 0.5 MG PO (08:59)
[2025-02-24] MEDS: VIBRAMYCIN 100 MG PO (09:00)
[2025-02-24] MEDS: RENVELA 800 MG PO (09:00)
[2025-02-24] MEDS: APRESOLINE 50 MG PO (09:00)
[2025-02-24] MEDS: KEPPRA 500 MG PO (09:00)
[2025-02-24] MEDS: VITAMIN B1 100 MG PO (09:00)
[2025-02-24] MEDS: SENOKOT-S 2 TABLET PO (09:00)
[2025-02-24] MEDS: DELTASONE 3 MG PO (09:00)
[2025-02-24] MEDS: FOLVITE 1 MG PO (09:00)
[2025-02-24] MEDS: HEPARIN 5000 UNITS SC ×3 (09:00→23:46)
[2025-02-24] MEDS: PROTONIX 40 MG PO (09:00)
[2025-02-24] MEDS: VITAMIN D3 (cholecalciferol) 10 MCG PO (09:01)
[2025-02-24] MEDS: COLACE 100 MG PO (09:01)
[2025-02-24] MEDS: LIDOCAINE 4% PATCH 1 PATCH TOPICAL (09:05)
[2025-02-24] MEDS: CATAPRES-TTS-2 0.2 MG TRANSDERM (09:07)
--- NOTE | 2025-02-24 10:01 | PTCARENOTE ---
Addendum entered by Zoe Mary RN 02/24/25 14:59:
pt takes pills whole with pudding. Speech consulted after witnessing coughing w/ oral intake. FEES done at bedside this afternoon.
Original Note:
clonidine patch applied to LUE and lidocaine patch applied to R shoulder. pt is bed bound, aaox3, takes pills whole with water. on 2L of O2 which is his baseline per reports. milk and molasses enema ordered to be given by this RN this morning.
--- NOTE | 2025-02-24 11:49 | CM ---
Met with patient who was very lethargic, drowsy and had difficulty staying awake. However, the info he gave me was accurate. This CM called and spoke with mother and brother Solomon. 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
transferred to [facility] approx 3 weeks ago. He then went back to [facility] ICU and from there was discharged to [facility] for STR and HD. He was at [facility] for 1 week prior to the admit. Prior to the [facility] admissions,
patient was living with his parents in a 2 story home with basement and 1/2 bath on 1st. Patient B/B on , 2 steps to enter the home. Patient was totally independent in ADL's and ambulation, drove. Very active with cutting tree limbs and other
chores. No in-home services. No VA benefits. No psychiatric hospitalizations. In the future patient will live with his brother, Joe, in a ranch style home with 1 step to enter in [place].
Patient developed ESRD 25 years ago, received a donor kidney which he had for 20 years before it failed last year. Conflicting med records note kidney failed in 2002. Family says it was last year. Currently his HD is at [facility] MWF @ 11:45AM.
Patient would drive himself to the clinic. Patient has been in the hospital and rehabs since 01/03/25 when diagnosed with West Nile. Family has notified [facility] that patient will be moving to [place] with his brother and will need a new chair
time.
Discharge POC: TBD.
--- NOTE | 2025-02-24 12:55 | PTOTSP ---
Speech Language Pathology
Pt seen for clinical bedside swallow evaluation. Breathy vocal quality noted. Pt reported increased overall weakness on R vs L, question whether vocal folds affected as well. Per facility facesheet from [facility], pt on pureed solids/mildly
thick liquids. Pt stated he was upgraded to mechanical soft at [facility] prior to discharge to facility. He also denied having had instrumental swallowing assessment, but stated he works with MANAGER MANAGEMENT at [facility] currently, and also worked with MANAGER MANAGEMENT
at [facility]. Question if accurate on no prior instrumental assessment.
P.O. trials of puree, regular solids, and thin liquids provided. Slightly prolonged mastication with mild diffuse oral residue noted. Audible swallow at times with thin liquids, likely indicative of incoordination. No overt signs of aspiration.
Unable to rule out silent aspiration.
Recommend:
(1) IDDSI Level 6 (soft/bite-sized) and mildly thick liquids
(2) Flexible endoscopic evaluation of swallowing (FEES) to further evaluate pharyngeal phase of swallow function and integrity of vocal folds in regards to airway protection
(3) Aspiration precautions: sit upright, slow rate
(4) Meds whole in puree
(5) MANAGER MANAGEMENT to continue to follow
[2025-02-24] MEDS: RENVELA PO ×2 (13:38→16:05)
[2025-02-24] MEDS: REGLAN PO ×3 (13:38→20:58)
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
--- NOTE | 2025-02-24 13:51 | PHA.VAN.IN ---
Assessment
- Assessment
Renal Function: Patient has ESRD, on chronic Hemodialysis (Mon, Wed, Fri)
Maximum Temperature: 100.5F
Concomitant Antimicrobials: Cefepime, Doxycycline
Plan
- Plan
Initial / Loading Dose: Vancomycin 1500mg administered 02/24 at 0506
Maintenance Regimen: dosing by level
Monitorin/19 prior to HD
MRSA Screen: Ordered per protocol
Pharmacokinetics Vancomycin I
- -
Patient Age: 59
Patient Sex: Male
Vancomycin Day #: 1
Indication: Pulmonary/Respiratory
Requesting Provider: Dr. Simmons
Pertinent Antimicrobial Allergies:
NKA
Height / Weight:
Height 6 ft 2 in
Actual Weight 63.231 kg
IBW in k.2
Pertinent Past Medical History: BMI 17.9, failed kidney transplant
- Vital Signs / Lab Results
Temp Pulse Resp BP Pulse Ox
98.1 F 84 18 125/68 96
02/24/25 11:00 02/24/25 11:00 02/24/25 11:00 02/24/25 11:00 02/24/25 11:00
Lab Results - Hematology
02/24/25
02:33
WBC 6.5
Lab Results - Chemistry
02/24/25
02:33
BUN 24 H
Creatinine 3.1 H
Estimated Creat Clear 24
Albumin 3.0 L
02/24/25
03:07
Lactic Acid 0.6 L
Microbiology Results
02/24/25 02:53 Influenza Types A & B (RAVIN) - Final
Nasal Swab Negative for Influenza A & B, NAAT
Negative results must be combined with clinical observations
and patient history.
Nucleic Acid Amplification test (NAAT)performed on the
[employer] platform.
[2025-02-24] MEDS: NSS 1000 IV (17:37)
[2025-02-24] MEDS: MAXIPIME 1000 MG IV (17:41)
[2025-02-24] MEDS: STERILE WATER FOR INJECTION 10 ML IV (17:41)
[2025-02-24] MEDS: COLACE PO (20:57)
[2025-02-24] MEDS: COZAAR PO (20:57)
[2025-02-24] MEDS: APRESOLINE PO (20:57)
[2025-02-24] MEDS: PROGRAF PO (20:57)
[2025-02-24] MEDS: MELATONIN PO (20:58)
[2025-02-24] MEDS: NEURONTIN PO (20:58)
[2025-02-24] MEDS: PROTONIX PO (20:58)
[2025-02-24] MEDS: SENOKOT-S PO (20:58)
[2025-02-24] MEDS: VIBRAMYCIN PO (20:58)
[2025-02-24] MEDS: SOLU-CORTEF 25 MG IV (21:03)
[2025-02-24] MEDS: REFRESH EYE DROPS (PF) 1 DROPS BOTH EYES (21:03)
[2025-02-24] MEDS: OFIRMEV 100 IV (22:11)
[2025-02-25] VITALS (8 sets, daily range): BP systolic 146–171; BP diastolic 88–100; BMI 17.8
[2025-02-25] MEDS: APRESOLINE PO ×2 (08:01→20:11)
[2025-02-25] MEDS: COLACE PO ×2 (08:01→20:11)
[2025-02-25] MEDS: DELTASONE PO (08:01)
[2025-02-25] MEDS: REGLAN PO ×4 (08:01→22:10)
[2025-02-25] MEDS: FOLVITE PO (08:01)
[2025-02-25] MEDS: COZAAR PO ×2 (08:01→20:11)
[2025-02-25] MEDS: KEPPRA PO (08:02)
[2025-02-25] MEDS: PACERONE PO (08:02)
[2025-02-25] MEDS: PROCARDIA XL (EXTENDED RELEASE) PO (08:10)
[2025-02-25] MEDS: PROGRAF PO ×2 (08:10→20:11)
[2025-02-25] MEDS: PROTONIX PO ×2 (08:10→20:11)
[2025-02-25] MEDS: RENVELA PO ×3 (08:11→17:07)
[2025-02-25] MEDS: SENOKOT-S PO ×2 (08:11→20:11)
[2025-02-25 08:40] LABS: Carbon Dioxide 27 mmol/L (22-30); Chloride 99 mmol/L (98-107); HDL Cholesterol 59 mg/dl; LDL Cholesterol, Calculated 51 mg/dl; Potassium 5.1 mmol/L (3.5-5.1); Sodium 130 mmol/L (135-145); Very Low Density Lipoprotein 22 mg/dl (0-30)
[2025-02-25] MEDS: VITAMIN D3 (cholecalciferol) PO (08:45)
[2025-02-25] MEDS: VIBRAMYCIN PO ×2 (08:45→20:11)
[2025-02-25] MEDS: VITAMIN B1 PO (08:45)
[2025-02-25] MEDS: LIDOCAINE 4% PATCH 1 PATCH TOPICAL (08:46)
[2025-02-25] MEDS: HEPARIN 5000 UNITS SC ×2 (08:47→15:22)
[2025-02-25 08:48] LABS: Hematocrit 20.8 % (39.0-52.0); Hemoglobin 7.0 g/dL (13.0-18.0); Mean Corp Hgb Conc. 33.7 g/dL (33.0-37.0); Mean Corpuscular Volume 88.1 fL (80.0-94.0); Platelet Count 137 10^3/uL (130-400); Red Cell Dist. Width 17.1 % (11.5-14.5)
[2025-02-25] MEDS: SOLU-CORTEF 25 MG IV ×2 (08:49→20:12)
[2025-02-25] MEDS: KEPPRA 500 MG IV (08:49)
[2025-02-25 08:51] LABS: Troponin I 0.066 ng/ml
[2025-02-25] MEDS: OFIRMEV 100 IV (08:58)
[2025-02-25] MEDS: RETACRIT 10000 UNITS IV (09:27)
--- NOTE | 2025-02-25 10:37 | PTCARENOTE ---
medications if possible changed to IV since pt is npo at this time. IV keppra given this AM. and pt given IV tylenol for pain this AM. pt currently received HD through L wrist AV fistula. +bruit and thrill noted.
[2025-02-25 10:40] LABS: Hepatitis B Surface Antigen Negative (Negative)
--- NOTE | 2025-02-25 10:47 | W.PN.HOSP.TC ---
Today's Communication/Plan
-
DC vancomycin
Repeat chest x-ray after hemodialysis
Await ENT input
Currently n.p.o- CW Speech tx
Assessment / Plan
Assessment / Plan
59-year-old with multiple medical comorbidities most notably end-stage renal disease with failed kidney transplant currently on hemodialysis Friday, history of hypertension, seizure disorder, recent admission for West Nile
encephalitis with epilepsy dysfunction, history of sudden cardiac arrest presenting to the emergency with sudden onset chest pressure and shortness of breath with associated nausea. Ischemic findings were negative with normal ECG, troponin of
0.033. However he had an x-ray with a new retrocardiac opacity. He had a temp of 100.5. CBC was unremarkable. His electrolytes were stable. BUN/creatinine reflective of ESRD. Patient is currently hemodynamically stable and not hypoxic.
PLAN:
Left-sided chest pressure with shortness of breath
Rule out pneumonia -retrocardiac opacity, fever. Immunosuppressed and recent hospitalization and stay in rehab facility
Rule out volume overload-chest x-ray also suggests CHF n the retrocardiac opacity may be a typical edema; BNP is also elevated Last echo here LVEF is 60-65% by visual estimation. Mild concentric LVH. Normal diastolic function.
Troponins on admission does not suggest acute coronary syndrome. EKG shows LVH no acute ST-T changes. Patient symptoms now resolved making me think that this may be fluid related.
Check repeat chest x-ray after hemodialysis
So far culture data has been negative. DC further vancomycin. Continue with cefepime and doxycycline for now. Chest x-ray shows rapid clearance of opacity will discontinue further antibiotics.
Dysphagia-patient is on modified diet and has function of swallow got worse. Failed FEES currently NPO. With a change in the volume of the speech, prominence of the left base of the tongue getting ENT eval to rule out any vocal cord dysfunction.
End-stage renal disease -no indication for emergent dialysis
- Dialysis due Friday-nephrology consult
- Fluid and salt restriction, continue sevelamer
- He is continued on antirejection taper with tacrolimus 0.5 mg twice daily and prednisone 1 mg
- Continue with hemodialysis per renal
History of West Nile encephalitis recently-continue with therapies
History of seizure disorder-continue with Keppra
History of cardiac arrest/afib
- No defibrillator noted, continue Amio
- unclear why he is not ac and can't be sure of hx
Hypertension
-Clonidine patch, continue nifedipine 60 daily, hydralazine 50 twice daily, losartan 50 twice daily
DVT PPX - heparin sq
Code status - Full code
With n.p.o., changed essential medications as possible to IV including antiepileptics
Discussed with RN
Total time spent on today's encounter was 52 minutes which included time spent in counseling the patient/family regarding diagnosis and treatment plan as listed above, goals of care, and symptom management. Case was discussed with nursing staff,
specialists, and care coordinators/case management. All labs and imaging personally reviewed by me. Remainder the time spent in detailed review of previous records, lab data, imaging, and other medical provider documentation.
Portions of this chart may have been created with voice recognition software. Occasional wrong word or 'sound alike' substitutions may have occurred due to the inherent limitations of voice recognition software.
Anticipated Discharge: > 48 hours
Subjective/Interval History
-
Date of Service: February 25, 2025
Patient is sleepy. Drifts off into sleep during the conversation but when awake oriented to place, day of the week and the date.
Denies any further chest pain. Denies any shortness of breath currently. He is on hemodialysis.
He says he was having left-sided chest discomfort yesterday for 6 hours and he had associated shortness of breath. Denies any prior history of heart attacks. Has any recurrent chest pains.
No nausea vomiting.
He says his voice strength has come down since his West Nile virus infection. He talks in low pitched voice/close to whisper. He was on a modified diet at rehab.
Objective Data
-
Labs:
Laboratory Results
02/25/25
07:56
WBC 7.2
Hgb 7.0 L
Hct 20.8 L*
Plt Count 137
Sodium 130 L
Potassium 5.1
Chloride 99
Carbon Dioxide 27
Vital Signs:
Vital Signs
Temp Pulse Resp BP Pulse Ox
98.4 F 83 18 154/99 97
02/25/25 07:30 02/25/25 07:30 02/25/25 07:30 02/25/25 08:44 02/25/25 07:30
I&O
02/24/25 02/25/25 02/26/25
06:59 06:59 06:59
Intake Total 80 / 80
Balance 80 / 80
Physical Exam
-
General: Comfortable
Respiratory: Clear to Auscultation (Anteriorly) and Non Labored Respirations; Negative Accessory Resp Muscle Use
Cardiac: Regular Rhythm and S1/S2; Negative Tachycardic
GI: Soft and Nontender
Neuro: AO x 3 and No Motor Deficits (Lower extremity 4+/5 BL; RUL 4+/ 5 ; GABBY not checked as on HD)
Psych: Calm; Negative Confused
Data Reviewed
-
Labs: Labs Reviewed by me
--- NOTE | 2025-02-25 11:36 | W.PN.NEPH.HD ---
Assessment
-
graciela hd 3L UF
Progress Note - Hemodialysis
-
Date of Service: February 25, 2025
Duration: 30 minutes and 3 hours
Potassium Bath: 3
Calcium Bath: 2.5
Opti-Dialyzer: 160
Ultrafiltration: Other (kg)
Blood Flow: 400
Dialysate Flow: 600
Heparin: no
EPO: 4000 units
--- NOTE | 2025-02-25 12:33 | CM ---
Patient chart reviewed
met with patient - estr
came from [facility] and was there for approx wk for STR
prior hospitalizations [facility]
Repeat chest x-ray after hemodialysis
Await ENT input
Currently n.p.o- CW Speech tx
PLAN: TBD, follow hospital progress, CM to follow for needs
--- NOTE | 2025-02-25 13:08 | PN.CDI ---
CDI
- -
CDI:
Physician Documentation Request
Admit Date: 02/24/25 05:46
Dear Doctor Sudeep,
Please review the following and provide your response in the progress notes.
Clinical Indicators:
Charge Account Clerk, 02/24
#Underweight (<18.5)
#...Records show 150 lbs 3 oz on 08-28-24; 139 lbs 6.4 oz on 02-24-25,
#...reflecting a loss of 11 lbs (7.3% wt change, 6 months)
#...-not significant however will monitor.
Based on the above and your clinical assessment, please provide an associated diagnosis related to the BMI:
BMI <18.5, underweight
Other(please specify)
BMI < or = to 19
Underweight
Weight Loss
Cachectic
Anorexia
Use of terms such as suspected, likely, concern for, or probable (associated with a specific diagnosis that is being evaluated, monitored, or treated as if it exists) are acceptable and can be coded in the inpatient setting, when documented at the
time of discharge.
Thank you,
Rosa Bland RN BSN CCDS
CDI Specialist
Please contact via tiger text
Please use your independent medical judgment in providing your response.
--- NOTE | 2025-02-25 13:12 | CON.MD ---
Consultation - Medical
-
Chief complaint: Dysphagia, aspiration, weak voice
History of present illness: This patient is a 59-year-old gentleman with a history of West Nile virus several months ago which required admission to [facility]. He has been in a alf facility. He has a history of medical
problems including a failed kidney transplant in the past. He receives dialysis. The patient noticed a couple months ago after his Nile virus infection that he had a weak voice and difficulty swallowing. He also finds that the left side of the
tongue is weak. He does not have significant respiratory distress. The patient finds that his voice has been weak for a couple of months. Swallow study with speech therapy yesterday showed aspiration. I was asked to see the patient to evaluate
his vocal cord function.
Past medical history:
Allergies: No known drug allergies
Home medications: Amiodarone 200 mg p.o. daily, amlodipine 10 mg p.o. at bedtime, artificial tears ophthalmic ointment to both eyes at bedtime, calcium carbonate 600 mg p.o. with meals, cholecalciferol 10 mcg p.o. daily, clonidine 0.2 mg patch
daily, gabapentin 2 mL p.o. at bedtime, hydralazine 50 mg p.o. twice daily, levetiracetam 5 ml p.o. daily, levetiracetam 2.5 mg p.o. q. Friday, lidocaine 1 patch topically daily, losartan 50 mg p.o. twice daily, melatonin 3 mg p.o.
nightly, metoclopramide 10 mg p.o. 4 times a day, nifedipine 60 mg p.o. daily, oxycodone�acetaminophen 1 tablet p.o. every 4 hours as needed pain, pantoprazole 40 mg p.o. twice daily, polyethylene glycol 3350 17 g p.o. daily, prednisone 3 mg p.o.
daily, senna docusate sodium 8.6-50 mg p.o. twice daily, sennosides�docusate sodium 1 tablet p.o. twice daily, sevelamer 800 mg p.o. 3 times daily, tacrolimus 0.5 mg p.o. twice daily, thiamine 100 mg p.o. daily
Hospitalizations: Patient was hospitalized at [facility] a couple months ago with West Nile virus. He has been in a alf facility and is currently hospitalized for aspiration pneumonia
Medical problems: Volume overload, immunocompromise, history of West Nile virus infection, end-stage renal disease, failed kidney transplant, renal transplant, IgA nephropathy, chest pain, fever, pneumonia, hyperlipidemia, hypertension, hypertensive
chronic kidney disease, end-stage renal disease on dialysis, sepsis, BMI between 19 and 24, cachexia, acute blood loss anemia, end-stage renal disease on dialysis, mars hematuria, kidney transplant failure, end-stage renal disease,
Family history: Asked and is noncontributory to current problem
Social history the patient is a non-smoker.
Review of systems: Weakness of tongue, weak voice, dysphagia
Physical examination:
Head: Atraumatic and normocephalic
Eyes: Extraocular movements are intact and pupils are equal and reactive to light
Nose: Minor septal deviation. No evidence of infection.
Oral cavity/oropharynx, long uvula otherwise normal mucosa
Ears: Normal
Cranial nerves: The patient has left tongue weakness and also has some atrophy of the tongue. He has evidence of left vocal cord paralysis as detailed below. The remainder of the cranial nerves are intact.
Thyroid gland: Normal to exam
Salivary glands: Normal to exam
Voice: The patient's voice is quiet. He cannot project his voice significantly.
Procedure: Flexible laryngoscopy was performed at the bedside
The patient underwent flexible laryngoscopy through the right nose. He has some retained secretions in his hypopharynx and some pooling in his hypopharynx as well. No infection was noted. No suspicious lesions were seen but he has left vocal cord
weakness/paralysis. He seems to have decreased sensation to the presence of the scope. No bleeding was seen.
Impression/plan this 59-year-old gentleman has experienced weakness of his voice, weak tongue, and dysphagia since he had a West Nile virus infection a couple months ago. He was recently discharged to a alf facility. I was asked to see
the patient because he was admitted with aspiration pneumonia. Swallow study with speech therapy had shown evidence of aspiration. He has left vocal cord weakness/paralysis and left tongue weakness. He has lost weight. He would probably benefit
from the presence of a feeding tube to help gain nutrition while he recovers from his West Nile virus infection. The patient's airway looks okay. He would probably be safer to be n.p.o. at this point.
Consultation
-
Date/Time Consultation Requested: 02/25/2025 6am
Date/Time Consultation Performed: 02/25/2025 1pm
Requesting Provider: BARRIE
Performing Provider: Natalie
Reason for Consultation: aspiration, weak voice, evaluate vocal cord function
--- NOTE | 2025-02-25 13:13 | PN.CDI ---
CDI
- -
CDI:
Physician Documentation Request
Admit Date: 02/24/25 05:46
Dear Doctor Sudeep,
Please review the following and provide your response in the progress notes.
Clinical Indicators:
#Nurses Notes, 02/24
Selected Entries
02/24/25
12:46
Pressure injury stage [Present on admission Sacrum] Stage 1
Physician documentation of the type and location of wounds is required for compliant documentation. Based on the above clinical findings and your assessment, please provide the following in your progress note:
Yes, Sacrum stage 1 pressure injury, POA
No Sacrum stage 1 pressure injury
Other (please specify)
1. Location of the ulcer/wound, including laterality.
2. Type (etiology) of ulcer/wound:
- Diabetic ulcer
- Arterial (ischemic) ulcer
- Traumatic wound
- Venous stasis ulcer
- Pressure (decubitus) ulcer
3. For a pressure ulcer, please also include the stage* of the ulcer:
- Stage 1 - Skin intact, non-blanchable redness
- Stage 2 - Partial thickness loss of dermis, includes intact or open blister
- Stage 3 - Full thickness tissue not including bone, tendon or muscle
- Stage 4 - Full thickness tissue loss, including exposed bone, tendon or muscle
- Unstageable - Full thickness loss in which the base of the ulcer is covered by slough (yellow, sierra, [place], green or brown) and/or eschar (sierra, brown or black) in the wound bed.
- Unable to determine
Use of terms such as suspected, likely, concern for, or probable (associated with a specific diagnosis that is being evaluated, monitored, or treated as if it exists) are acceptable and can be coded in the inpatient setting, when documented at the
time of discharge.
Thank you,
Rosa Bland RN BSN CCDS
CDI Specialist
Please contact via tiger text
Please use your independent medical judgment in providing your response.
*Source: National Pressure Ulcer Advisory Panel (NPUAP)
--- NOTE | 2025-02-25 13:18 | PN.CDI ---
CDI
- -
CDI:
Physician Documentation Request
Admit Date: 02/24/25 05:46
Dear Doctor Sudeep,
Please review the following and provide your response in the progress notes.
Clinical Indicators:
Laboratory Tests
02/24/25 02/25/25
02:33 07:56
Sodium 131 L 130 L
Based on the above, please clarify the appropriate diagnosis, if significant, that supports the above abnormalities and additional evaluation, monitoring and/or treatment rendered:
Hyponatremia
Abnormal lab value, clinically insignificant
Other (please specify)
Use of terms such as suspected, likely, concern for, or probable (associated with a specific diagnosis that is being evaluated, monitored, or treated as if it exists) are acceptable and can be coded in the inpatient setting, when documented at the
time of discharge.
Thank you,
Rosa Bland RN BSN CCDS
CDI Specialist
Please contact via tiger text
Please use your independent medical judgment in providing your response.
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
[2025-02-25] MEDS: APRESOLINE 5 MG IV (15:21)
[2025-02-25] MEDS: NSS 1000 IV (17:07)
[2025-02-25] MEDS: MAXIPIME 1000 MG IV (17:08)
[2025-02-25] MEDS: STERILE WATER FOR INJECTION 10 ML IV (17:08)
[2025-02-25] MEDS: KEPPRA 250 MG IV (17:13)
[2025-02-25 20:55] LABS: Troponin I 0.054 ng/ml
[2025-02-25] MEDS: MELATONIN PO (22:09)
[2025-02-25] MEDS: NEURONTIN PO (22:10)
[2025-02-25] MEDS: REFRESH EYE DROPS (PF) BOTH EYES (22:13)
[2025-02-26] VITALS (7 sets, daily range): BP systolic 90–152; BP diastolic 58–87; PULSE 80; O2SAT 94; BMI 17.1
[2025-02-26] MEDS: APRESOLINE 5 MG IV (00:44)
[2025-02-26] MEDS: HEPARIN 5000 UNITS SC ×4 (00:44→23:45)
[2025-02-26] MEDS: OFIRMEV 100 IV (02:43)
[2025-02-26] MEDS: REGLAN PO ×4 (06:32→22:18)
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
[2025-02-26] MEDS: LIDOCAINE 4% PATCH 1 PATCH TOPICAL (10:22)
[2025-02-26] MEDS: SOLU-CORTEF 25 MG IV ×2 (10:23→20:51)
[2025-02-26] MEDS: FLUSH (NSS) 2 FLUSH IV (10:25)
[2025-02-26] MEDS: KEPPRA 500 MG IV (10:26)
[2025-02-26] MEDS: PACERONE 200 MG PO (10:28)
[2025-02-26] MEDS: VIBRAMYCIN 100 MG PO (10:28)
[2025-02-26] MEDS: COZAAR 50 MG PO ×2 (11:00→20:50)
[2025-02-26] MEDS: PROCARDIA XL (EXTENDED RELEASE) 60 MG PO (11:00)
[2025-02-26] MEDS: PROTONIX 40 MG PO (11:01)
[2025-02-26] MEDS: PROGRAF 0.5 MG PO (11:01)
[2025-02-26] MEDS: SENOKOT-S 2 TABLET PO ×2 (11:28→20:50)
[2025-02-26] MEDS: FOLVITE 1 MG PO (11:28)
[2025-02-26] MEDS: COLACE 100 MG PO ×2 (11:29→20:50)
[2025-02-26] MEDS: RENVELA PO ×3 (11:37→16:06)
[2025-02-26] MEDS: DELTASONE PO (11:57)
[2025-02-26] MEDS: APRESOLINE 50 MG PO ×2 (12:02→20:50)
[2025-02-26] MEDS: VITAMIN D3 (cholecalciferol) 10 MCG PO (12:02)
[2025-02-26] MEDS: VITAMIN B1 100 MG PO (12:02)
--- NOTE | 2025-02-26 13:45 | W.PN.HOSP.TC ---
Today's Communication/Plan
-
Continue current treatments
Switch antibiotics to to Unasyn
Await PEG tube on Friday
Assessment / Plan
Assessment / Plan
59-year-old with multiple medical comorbidities most notably end-stage renal disease with failed kidney transplant currently on hemodialysis Friday, history of hypertension, seizure disorder, recent admission for West Nile
encephalitis with epilepsy dysfunction, history of sudden cardiac arrest presenting to the emergency with sudden onset chest pressure and shortness of breath with associated nausea. Ischemic findings were negative with normal ECG, troponin of
0.033. However he had an x-ray with a new retrocardiac opacity. He had a temp of 100.5. CBC was unremarkable. His electrolytes were stable. BUN/creatinine reflective of ESRD. Patient is currently hemodynamically stable and not hypoxic.
PLAN:
Left-sided chest pressure with shortness of breath
Rule out pneumonia -retrocardiac opacity, fever. Immunosuppressed and recent hospitalization and stay in rehab facility
Rule out volume overload-chest x-ray also suggests CHF n the retrocardiac opacity may be a typical edema; BNP is also elevated Last echo here LVEF is 60-65% by visual estimation. Mild concentric LVH. Normal diastolic function.
Troponins on admission does not suggest acute coronary syndrome. EKG shows LVH no acute ST-T changes. Patient symptoms now resolved making me think that this may be fluid related.
repeat chest x-ray after hemodialysis shows resolving increased pulmonary vascularity but cannot exclude patchy left basilar subsegmental atelectasis versus pneumonia. With dysphagia cannot rule out aspiration pneumonia/pneumonitis. Switch
antibiotics to Unasyn to complete total of 5 days of antibiotics
So far culture data has been negative.
Dysphagia-patient is on modified diet and has function of swallow got worse. Failed FEES currently NPO. With a change in the volume of the speech, prominence of the left base of the tongue obtained ENT eval
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 He also lost weight. They are recommending tube feeds and to keep n.p.o. for now. GI consulted-planning for PEG on Friday
End-stage renal disease -no indication for emergent dialysis
- Dialysis due Friday-nephrology consult
- Fluid and salt restriction, continue sevelamer
- He is continued on antirejection taper with tacrolimus 0.5 mg twice daily and prednisone 1 mg
- Continue with hemodialysis per renal
History of West Nile encephalitis recently-continue with therapies
History of seizure disorder-continue with Keppra
History of cardiac arrest/afib
- No defibrillator noted, continue Amio
- unclear why he is not ac and can't be sure of hx
Hypertension
-Clonidine patch, continue nifedipine 60 daily, hydralazine 50 twice daily, losartan 50 twice daily
DVT PPX - heparin sq
Code status - Full code
Portions of this chart may have been created with voice recognition software. Occasional wrong word or 'sound alike' substitutions may have occurred due to the inherent limitations of voice recognition software.
Anticipated Discharge: > 48 hours
Subjective/Interval History
-
Date of Service: February 26, 2025
Declining NG tube but agreeable to PEG
Denies SOB today
Denies CP, N/V
No fever chills
Objective Data
-
Vital Signs:
Vital Signs
Temp Pulse Resp BP Pulse Ox
98.4 F 71 16 145/85 97
02/26/25 11:30 02/26/25 11:30 02/26/25 11:30 02/26/25 11:30 02/26/25 11:30
I&O
02/25/25 02/26/25 02/27/25
06:59 06:59 06:59
Intake Total 80 / 80 1160 / 1160
Output Total 0 / 0
Balance 80 / 80 1160 / 1160
Physical Exam
-
General: Comfortable
Respiratory: Crackles (Left base) and Non Labored Respirations; Negative Accessory Resp Muscle Use
Cardiac: Regular Rhythm and S1/S2
GI: Soft
Neuro: AO x 3
Psych: Calm; Negative Confused
Data Reviewed
-
Labs: Labs Reviewed by me
--- NOTE | 2025-02-26 14:46 | CM ---
Patient seen at bedside on . Per chart review physician note of 02/26/25 patient for Peg tube on Friday. Patient currently on HD with [facility] and plan per chart review note of 02/24/25 is for patient to move to [place] with his brother and
will need new chair time when accepting clinic located. Per therapy recommendation on 02/24/25 patient remains appropriate for SNF level care. Patient states that he does not want to return to [facility] and would want his mother to update options
for possible SNF if patient needs placement prior to going to brother's home. Patient was Short term care at [facility] prior to admission to . CM will reach out to patient mother and will continue to follow for discharge planning needs.
Plan; SNF vs home with brother in [place]. Patient understands he may need SNF stay prior to being able to go to brother's home.
--- NOTE | 2025-02-26 15:27 | W.PN.NEPH.PH ---
Today's Communication / Plan
-
No acute need for dialysis today
Assessment/Plan
-
Assessment
ESRD
Left upper extremity AV fistula
donor renal transplant failed
Biopsy-proven IgA nephropathy
hypertension
Anemia
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
Plan
HD mwf cont
dysphagia-Await PEG tube on Friday
Ampicillin
-
-
Date of Service: February 26, 2025
CC / HPI / ROS
-
Chief Complaint:
Failure to thrive
History of Present Illness:
ESRD status post rehab West Nile virus
Review of Systems:
Lethargic
Responsive no specific complaints
Labs
-
Labs:
WBC 7.2 10^3/uL (4.8-10.8) 02/25/25 07:56
RBC 2.36 10^6/uL (4.70-6.10) L 02/25/25 07:56
Hgb 7.0 g/dL (13.0-18.0) L 02/25/25 07:56
Hct 20.8 % (39.0-52.0) L* 02/25/25 07:56
Plt Count 137 10^3/uL (130-400) 02/25/25 07:56
Sodium 130 mmol/L (135-145) L 02/25/25 07:56
Potassium 5.1 mmol/L (3.5-5.1) 02/25/25 07:56
Chloride 99 mmol/L (98-107) 02/25/25 07:56
Carbon Dioxide 27 mmol/L (22-30) 02/25/25 07:56
BUN 24 mg/dl (9-20) H 02/24/25 02:33
Creatinine 3.1 mg/dL (0.7-1.3) H 02/24/25 02:33
eGFR 22.58 02/24/25 02:33
Glucose 83 mg/dl (70-99) 02/24/25 02:33
Calcium 8.7 mg/dl (8.4-10.2) 02/24/25 02:33
Ztt-G-Zeqgvcnsayp Pept Cancelled 02/24/25 02:44
Albumin 3.0 g/dl (3.5-5.0) L 02/24/25 02:33
Physical Exam
-
Vital Signs:
Vital Signs
Temp Pulse Resp BP Pulse Ox
98.4 F 71 16 145/85 97
02/26/25 11:30 02/26/25 11:30 02/26/25 11:30 02/26/25 11:30 02/26/25 11:30
Cardiovascular:: Regular rate and rhythm
Respiratory:: Bilateral: Coarse
Lung Excursion:: Normal
Abdomen:: Nontender and Soft
Bowel Sounds:: Normal
Extremity Edema:: None: Bilateral:
Other Findings::
Cachectic
[2025-02-26] MEDS: NSS 1000 IV (16:04)
[2025-02-26] MEDS: UNASYN IV (16:05)
[2025-02-26] MEDS: PROGRAF PO (20:49)
[2025-02-26] MEDS: PROTONIX PO (20:49)
[2025-02-26] MEDS: MELATONIN 3 MG PO (22:18)
[2025-02-26] MEDS: NEURONTIN 100 MG PO (22:19)
[2025-02-26] MEDS: REFRESH EYE DROPS (PF) BOTH EYES (22:21)
[2025-02-27] VITALS (9 sets, daily range): BP systolic 121–153; BP diastolic 72–96; BMI 17.9
[2025-02-27] MEDS: REGLAN PO ×3 (06:35→09:59)
[2025-02-27 06:57] LABS: Hematocrit 19.4 % (39.0-52.0); Hemoglobin 6.2 g/dL (13.0-18.0); Mean Corp Hgb Conc. 32.0 g/dL (33.0-37.0); Mean Corpuscular Volume 89.4 fL (80.0-94.0); Platelet Count 139 10^3/uL (130-400); Red Cell Dist. Width 16.9 % (11.5-14.5)
[2025-02-27 07:04] LABS: INR 1.11; PT 14.6 Sec (11.4-14.6)
--- NOTE | 2025-02-27 07:29 | PTCARENOTE ---
4 run beat of V-Tach noted on 02/26 telemetry strip. No subsequent runs of V-tach or PVCs noted on telemetry strip this shift for this RN. ENGINEERING GEOLOGIST notified. Pt denies chest pain, lightheadedness or chest tightness. Mag added onto AM labs. VSS. IVF
maintained. Bed in lowest position and locked, call rothman within reach. Dayshift RN notified of this change.
[2025-02-27 07:37] LABS: Blood Urea Nitrogen 42 mg/dl (9-20); Calcium 8.7 mg/dl (8.4-10.2); Carbon Dioxide 27 mmol/L (22-30); Chloride 100 mmol/L (98-107); Estimated Creatinine Clearance 17 ml/min; Glucose 86 mg/dl (70-99); Magnesium 2.0 mg/dl (1.6-2.3); Potassium 4.1 mmol/L (3.5-5.1); Sodium 132 mmol/L (135-145); eGFR 14.83
[2025-02-27 08:05] LABS: Reticulocyte Count 0.8 % (0.4-2.8)
[2025-02-27 08:26] LABS: Iron 83 ug/dl (49-181)
[2025-02-27 08:28] LABS: Total Iron Binding Capacity 156 ug/dl (261-462)
[2025-02-27 09:39] LABS: Ferritin 1500.0 ng/ml (17.9-464.0)
[2025-02-27] MEDS: LIDOCAINE 4% PATCH 1 PATCH TOPICAL (09:53)
[2025-02-27] MEDS: KEPPRA 500 MG IV (09:55)
[2025-02-27] MEDS: PROCARDIA XL (EXTENDED RELEASE) PO ×2 (09:56→11:29)
[2025-02-27] MEDS: APRESOLINE PO ×2 (09:56→11:30)
[2025-02-27] MEDS: PROGRAF PO ×2 (09:56→11:29)
[2025-02-27] MEDS: DELTASONE PO (09:57)
[2025-02-27] MEDS: COZAAR PO ×2 (09:57→11:29)
[2025-02-27] MEDS: COLACE PO ×2 (09:57→11:30)
[2025-02-27] MEDS: FOLVITE PO ×2 (09:57→11:27)
[2025-02-27] MEDS: VITAMIN D3 (cholecalciferol) PO ×2 (09:58→11:29)
[2025-02-27] MEDS: SENOKOT-S PO ×3 (09:58→20:14)
[2025-02-27] MEDS: PACERONE PO ×2 (09:58→11:29)
[2025-02-27] MEDS: PROTONIX PO ×2 (09:58→11:29)
[2025-02-27] MEDS: RENVELA PO ×2 (09:58→10:27)
[2025-02-27] MEDS: HEPARIN 5000 UNITS SC ×3 (09:58→23:20)
[2025-02-27] MEDS: VITAMIN B1 PO ×2 (09:58→11:29)
[2025-02-27] MEDS: SOLU-CORTEF 25 MG IV ×2 (10:06→20:20)
--- NOTE | 2025-02-27 12:16 | W.PN.HOSP.TC ---
Today's Communication/Plan
-
Transfuse PRBC
Check heme test stools and iron studies
Follow H&H
The patient currently made complete n.p.o.-switch his home meds as possible to IV.
Assessment / Plan
Assessment / Plan
59-year-old with multiple medical comorbidities most notably end-stage renal disease with failed kidney transplant currently on hemodialysis Friday, history of hypertension, seizure disorder, recent admission for West Nile
encephalitis with epilepsy dysfunction, history of sudden cardiac arrest presenting to the emergency with sudden onset chest pressure and shortness of breath with associated nausea. Ischemic findings were negative with normal ECG, troponin of
0.033. However he had an x-ray with a new retrocardiac opacity. He had a temp of 100.5. CBC was unremarkable. His electrolytes were stable. BUN/creatinine reflective of ESRD. Patient is currently hemodynamically stable and not hypoxic.
PLAN:
Left-sided chest pressure with shortness of breath
Rule out pneumonia -retrocardiac opacity, fever. Immunosuppressed and recent hospitalization and stay in rehab facility
Rule out volume overload-chest x-ray also suggests CHF n the retrocardiac opacity may be a typical edema; BNP is also elevated Last echo here LVEF is 60-65% by visual estimation. Mild concentric LVH. Normal diastolic function.
Troponins on admission does not suggest acute coronary syndrome. EKG shows LVH no acute ST-T changes. Patient symptoms now resolved making me think that this may be fluid related.
repeat chest x-ray after hemodialysis shows resolving increased pulmonary vascularity but cannot exclude patchy left basilar subsegmental atelectasis versus pneumonia. With dysphagia cannot rule out aspiration pneumonia/pneumonitis. Switch
antibiotics to Unasyn to complete total of 5 days of antibiotics
So far culture data has been negative.
Dysphagia-patient is on modified diet and has function of swallow got worse. Failed FEES currently NPO. With a change in the volume of the speech, prominence of the left base of the tongue obtained ENT eval
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 He also lost weight. They are recommending tube feeds and to keep n.p.o. for now. GI consulted-planning for PEG on Friday
End-stage renal disease -no indication for emergent dialysis
- Dialysis due Friday-nephrology consult
- Fluid and salt restriction, continue sevelamer
- He is continued on antirejection taper with tacrolimus 0.5 mg twice daily and prednisone 1 mg
- Continue with hemodialysis per renal
Severe anemia-obvious external bleeding. Known to have chronic anemia and prior transfusion need. In view of it is severe at 6.2 will transfuse 1 unit of PRBC. Check heme test stools and iron studies. Consent obtained.
History of West Nile encephalitis recently-continue with therapies
History of seizure disorder-continue with Keppra
History of cardiac arrest/afib
- No defibrillator noted, continue Amio
- unclear why he is not ac and can't be sure of hx
Hypertension
-Clonidine patch, continue nifedipine 60 daily, hydralazine 50 twice daily, losartan 50 twice daily
DVT PPX - heparin sq
Code status - Full code
Portions of this chart may have been created with voice recognition software. Occasional wrong word or 'sound alike' substitutions may have occurred due to the inherent limitations of voice recognition software.
Anticipated Discharge: > 48 hours
Subjective/Interval History
-
Date of Service: February 27, 2025
Reviewed by SPT today and advises complete NPO.
this am 6.2 -denies any chest pain or shortness of breath. Denies any dizziness. Denies any fatigue. Patient states he was noted to be anemic in the recent past and needed blood transfusion.
No nausea vomiting.
Objective Data
-
Labs:
Laboratory Results
02/27/25
05:37
WBC 5.5
Hgb 6.2 L*
Hct 19.4 L*
Plt Count 139
PT 14.6
INR 1.11
Sodium 132 L
Potassium 4.1
Chloride 100
Carbon Dioxide 27
BUN 42 H
Creatinine 4.4 H*
Glucose 86
Calcium 8.7
Vital Signs:
Vital Signs
Temp Pulse Resp BP Pulse Ox
97.5 F 66 16 138/87 97
02/27/25 08:29 02/27/25 08:29 02/27/25 08:29 02/27/25 08:29 02/27/25 08:29
I&O
02/26/25 02/27/25 02/28/25
06:59 06:59 06:59
Intake Total 1160 / 1160 1470 / 1470
Output Total 0 / 0 0 / 0
Balance 1160 / 1160 1470 / 1470
Physical Exam
-
General: No Apparent Distress
Respiratory: Clear to Auscultation and Non Labored Respirations; Negative Wheezes or Accessory Resp Muscle Use
Cardiac: Regular Rhythm and S1/S2
GI: Soft
Neuro: AO x 3
Psych: Calm; Negative Confused
Data Reviewed
-
Labs: Labs Reviewed by me
--- NOTE | 2025-02-27 14:24 | W.PN.NEPH.PH ---
Today's Communication / Plan
-
Dialysis Friday
Assessment/Plan
-
Assessment
ESRD
Left upper extremity AV fistula
donor renal transplant failed
Biopsy-proven IgA nephropathy
hypertension
Anemia
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
Plan
HD [facility]wf cont
dysphagia-Await PEG tube on Friday
Remains on tacrolimus
prbc today and on hd friday
-
-
Date of Service: February 27, 2025
CC / HPI / ROS
-
Chief Complaint:
Failure to thrive
History of Present Illness:
ESRD status post rehab West Nile virus
Review of Systems:
Lethargic
Responsive no specific complaints
Labs
-
Labs:
WBC 5.5 10^3/uL (4.8-10.8) 02/27/25 05:37
RBC 2.17 10^6/uL (4.70-6.10) L 02/27/25 05:37
Hgb 6.2 g/dL (13.0-18.0) L* 02/27/25 05:37
Hct 19.4 % (39.0-52.0) L* 02/27/25 05:37
Plt Count 139 10^3/uL (130-400) 02/27/25 05:37
Sodium 132 mmol/L (135-145) L 02/27/25 05:37
Potassium 4.1 mmol/L (3.5-5.1) 02/27/25 05:37
Chloride 100 mmol/L (98-107) 02/27/25 05:37
Carbon Dioxide 27 mmol/L (22-30) 02/27/25 05:37
BUN 42 mg/dl (9-20) H 02/27/25 05:37
Creatinine 4.4 mg/dL (0.7-1.3) H* 02/27/25 05:37
eGFR 14.83 02/27/25 05:37
Glucose 86 mg/dl (70-99) 02/27/25 05:37
Calcium 8.7 mg/dl (8.4-10.2) 02/27/25 05:37
Vtl-N-Ovibjookied Pept Cancelled 02/24/25 02:44
Albumin 3.0 g/dl (3.5-5.0) L 02/24/25 02:33
Physical Exam
-
Vital Signs:
Vital Signs
Temp Pulse Resp BP Pulse Ox
98.1 F 72 16 147/91 98
02/27/25 11:24 02/27/25 11:24 02/27/25 11:24 02/27/25 11:24 02/27/25 11:24
Cardiovascular:: Regular rate and rhythm
Respiratory:: Bilateral: Coarse
Lung Excursion:: Normal
Abdomen:: Nontender and Soft
Bowel Sounds:: Normal
Extremity Edema:: None: Bilateral:
Other Findings::
Cachectic
[2025-02-27] MEDS: UNASYN IV (16:12)
[2025-02-27] MEDS: NSS 1000 IV (16:12)
[2025-02-27] MEDS: PROTONIX IV 40 MG IV (20:21)
[2025-02-27] MEDS: NSS (PRESERVATIVE FREE) 10 ML IV (20:22)
[2025-02-27] MEDS: REFRESH EYE DROPS (PF) 1 DROPS BOTH EYES (23:19)
[2025-02-28] VITALS (8 sets, daily range): BP systolic 16–145; BP diastolic 77–90; BMI 18.0
[2025-02-28] MEDS: RETACRIT 10000 UNITS IV (08:42)
--- NOTE | 2025-02-28 08:52 | W.PN.HOSP.TC ---
Today's Communication/Plan
-
For PEG placement today
Assessment / Plan
Assessment / Plan
HPI: 59-year-old with multiple medical comorbidities most notably end-stage renal disease with failed kidney transplant currently on hemodialysis Friday, history of hypertension, seizure disorder, recent admission for West Nile
encephalitis with epilepsy dysfunction, history of sudden cardiac arrest presenting to the emergency with sudden onset chest pressure and shortness of breath with associated nausea. Ischemic findings were negative with normal ECG, troponin of
0.033. However he had an x-ray with a new retrocardiac opacity. He had a temp of 100.5. CBC was unremarkable. His electrolytes were stable. BUN/creatinine reflective of ESRD. Patient is currently hemodynamically stable and not hypoxic.
Assessment/plan:
#Left-sided chest pressure with shortness of breath
Rule out pneumonia -retrocardiac opacity, fever. Immunosuppressed and recent hospitalization and stay in rehab facility
Rule out volume overload-chest x-ray also suggests CHF n the retrocardiac opacity may be a typical edema; BNP is also elevated Last echo here LVEF is 60-65% by visual estimation. Mild concentric LVH. Normal diastolic function.
Troponins on admission does not suggest acute coronary syndrome. EKG shows LVH no acute ST-T changes. Patient symptoms now resolved, suspect fluid related.
Repeat chest x-ray after hemodialysis shows resolving increased pulmonary vascularity but cannot exclude patchy left basilar subsegmental atelectasis versus pneumonia. With dysphagia cannot rule out aspiration pneumonia/pneumonitis. Cultures
negative to date
Continue Unasyn to complete total of 5 days of antibiotics
#Dysphagia
Patient is on modified diet and has function of swallow got worse. Failed FEES currently NPO.
With a change in the volume of the speech, prominence of the left base of the tongue obtained ENT eval
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 He also lost weight. They are recommending tube feeds and to keep n.p.o. for now
Appreciate GI input, plan for PEG today
#End-stage renal disease
#Hyponatremia
Continue dialysis as per nephrology
Continue antirejection taper with tacrolimus 0.5 mg twice daily and prednisone 1 mg
Continue salt restriction, continue sevelamer
#Anemia of chronic kidney disease
No signs of external bleeding
Hemoglobin improved to 7.0, increased from 6.2 status post 1 unit packed red blood cells 02/27
Heme test stools
#History of West Nile encephalitis recently-continue with therapies
History of seizure disorder-continue with Keppra
#History of cardiac arrest/afib
No defibrillator noted, continue Amio
Unclear why he is not ac and can't be sure of hx
#Hypertension
Clonidine patch, nifedipine 60 daily, hydralazine 50 twice daily, losartan 50 twice daily
DVT PPX - heparin sq
Code status - Full code
Total time spent to see the patient on the floor, examine the patient, review data and lab results, discuss treatment plan with patient, nursing staff around 37 minutes.
Physical Exam
General: No acute distress
HEENT: Normocephalic, Atraumatic, EOMI, MMM
Soft voice
Respiratory: Clear to Auscultation bilaterally
Cardiac: Normal S1/S2, Regular Rate and Rhythm
GI: Soft, Nontender, Nondistended, Normal Bowel Sounds
Extremities: No Clubbing, Cyanosis, or Edema
Neuro: Nonfocal/Grossly Intact
Anticipated Discharge: 24 - 48 hours
Subjective/Interval History
-
Date of Service: February 28, 2025
Patient denies chest pain, denies shortness of breath. No fever, no vomiting.
Objective Data
-
Labs:
Laboratory Results
02/28/25
08:00
WBC Pending
Hgb Pending
Hct Pending
Plt Count Pending
Vital Signs:
Vital Signs
Temp Pulse Resp BP Pulse Ox
98.5 F 67 18 133/82 98
02/28/25 07:25 02/28/25 07:25 02/28/25 07:25 02/28/25 07:25 02/28/25 07:25
I&O
02/27/25 02/28/25 03/01/25
06:59 06:59 06:59
Intake Total 1470 / 1470 1740 / 1740
Output Total 0 / 0
Balance 1470 / 1470 1740 / 1740
[2025-02-28 08:54] LABS: Hematocrit 21.1 % (39.0-52.0); Hemoglobin 7.0 g/dL (13.0-18.0); Mean Corp Hgb Conc. 33.2 g/dL (33.0-37.0); Mean Corpuscular Volume 89.0 fL (80.0-94.0); Platelet Count 134 10^3/uL (130-400); Red Cell Dist. Width 18.2 % (11.5-14.5)
--- NOTE | 2025-02-28 08:56 | W.PN.UPDATE ---
Addendum entered and electronically signed by WARNER Mejia 02/28/25 09:10:
Mother updated-- she is also agreeable for peg today. If needed her cell phone number is [phone].
Original Note:
Update Note
Progress Note Update
reviewed with patient and nursing staff. Pt on current HD. He is agreeable for peg today.
[2025-02-28] MEDS: LIDOCAINE 4% PATCH 1 PATCH TOPICAL (09:16)
[2025-02-28] MEDS: DELTASONE PO (09:16)
[2025-02-28] MEDS: NSS (PRESERVATIVE FREE) 10 ML IV ×2 (09:17→20:58)
[2025-02-28] MEDS: SOLU-CORTEF 25 MG IV ×2 (09:17→20:58)
[2025-02-28] MEDS: PROTONIX IV 40 MG IV ×2 (09:17→20:58)
[2025-02-28] MEDS: HEPARIN 5000 UNITS SC ×3 (09:18→23:50)
[2025-02-28] MEDS: SENOKOT-S PO ×2 (09:18→19:23)
[2025-02-28] MEDS: KEPPRA 500 MG IV (09:18)
--- NOTE | 2025-02-28 09:23 | W.PN.NEPH.HD ---
Assessment
-
Patient seen on dialysis
Very lethargic
Systolic blood pressure 123 at current [facility]
Dialysis via aneurysmal AV fistula
Received unit of blood last evening now hemoglobin up to 7
For PEG tube today due to dysphagia
Progress Note - Hemodialysis
-
Date of Service: February 28, 2025
Duration: 30 minutes and 3 hours
Potassium Bath: 3
Calcium Bath: 2.5
Opti-Dialyzer: 160
Ultrafiltration: Other (1 kg)
Blood Flow: 400
Dialysate Flow: 600
Heparin: none
EPO: 10,000
[2025-02-28] MEDS: UNASYN IV (14:11)
--- NOTE | 2025-02-28 14:37 | CM ---
Reviewed the chart notes and spoke with the patient at the bedside and mother via telephone. Both requested I reach out to the patient's brother Joe ([phone]) to discuss discharge planning. Voice message left with CM contact information.
Patient and mother, plan is to discharge to the patient's brother's home in [place]. CM needs to confirm brother able to accept and need to selected HD site. CM continues to be available to patient/family and is monitoring medical plan for needs
at discharge.
Plan: Discharge plan is to brother's home in [place]. Will need to find HD site close to brother's home. Await call back from the patient's brother.
--- NOTE | 2025-02-28 15:21 | OR.RPT ---
Operative Report
Operative Report
Patient Name: Rene Lara
: 1965
Date of Operation: 02/28/2025
Preoperative Diagnosis: Need for feeding access
Postoperative Diagnosis: Same
Procedure(s):
Percutaneous endoscopic gastrostomy
Surgeon(s):
Dr. Jacob
Endoscopist(s):
Dr. Blakely
Anesthesia: General
Estimated Blood Loss: 1 cc
Urine Output: None
Drains/Lines/Implants: 20 Scottish PEG tube
Specimens: None
Indication/Findings at the time of surgery:
Please see GI notes.
Details of the operation:
After inducing general anesthesia and placement of a mouth guard, an upper endoscopy was performed by the cloth reeler (see their note for further details) an appropriate site for the PEG tube was identified near the left costal margin. This
was confirmed by good one-to-one, transillumination as well as a safe track technique. The overlying skin was infiltrated with lidocaine and a small stab incision was made. The introducer needle was inserted through the stab incision, abdominal
wall and into the stomach. This required 1 pass. The blue guidewire was inserted through the sheath and was captured by an endoscopic snare. A 20 Scottish PEG tube was then advanced along the tract. The external bumper and tube feeding attachment
were placed. The tube was noted to be 2.5 cm at the skin. There was minimal blood loss. The patient returned to the recovery room in stable condition. Sponge and instrument counts were correct. No specimen sent to pathology from our portion of
the procedure.
I was the attending physician and performed the procedure with no assistance. I was present for all portions of the case
Luis Jacob MD
[2025-02-28] MEDS: KEPPRA 250 MG IV (17:33)
--- NOTE | 2025-02-28 19:58 | PTCARENOTE ---
PEG tube placed. pt with IVF going at 40ml/hr. electroencephalograph technologist consult placed for tomorrow to start feedings.
[2025-02-28] MEDS: REMOVE LIDOCAINE PATCH 1 PATCH REMOVE (20:59)
[2025-02-28] MEDS: NSS 1000 IV (21:00)
[2025-02-28] MEDS: TYLENOL 650 MG TUBE (21:46)
[2025-02-28] MEDS: REFRESH EYE DROPS (PF) 1 DROPS BOTH EYES (21:53)
[2025-03-01] VITALS (7 sets, daily range): BP systolic 128–150; BP diastolic 69–92; PULSE 69; O2SAT 98; BMI 17.8
[2025-03-01] MEDS: TYLENOL 650 MG TUBE ×2 (01:49→10:26)
--- NOTE | 2025-03-01 07:24 | PN.CDI ---
CDI
- -
CDI:
Physician Documentation Request
Admit Date: 02/24/25 05:46
Dear Doctor Do,
Please review the following and provide your response in the progress notes.
Clinical Indicators:
Administrator Pesticide, 02/28
#Weight- 139lb 12.8oz BMI 18 underwt/ht (02/28), 138 lbs 8 oz (02-25).
#...Weight hx- 150 lbs 3 oz on 08-28-24; 139 lbs 6.4 oz on 02-24-25,
#...reflecting a loss of 11 lbs (7.3% wt change, 6 months)
#...-not significant however will monitor.
Administrator Pesticide, 02/24
#Underweight (<18.5)
#...Records show 150 lbs 3 oz on 08-28-24; 139 lbs 6.4 oz on 02-24-25,
#...reflecting a loss of 11 lbs (7.3% wt change, 6 months)
#...-not significant however will monitor.
Based on the above and your clinical assessment, please provide an associated diagnosis related to the BMI:
BMI <18.5, underweight
Other(please specify)
BMI < or = to 19
Underweight
Weight Loss
Cachectic
Anorexia
Use of terms such as suspected, likely, concern for, or probable (associated with a specific diagnosis that is being evaluated, monitored, or treated as if it exists) are acceptable and can be coded in the inpatient setting, when documented at the
time of discharge.
Thank you,
Rosa Bland RN BSN CCDS
CDI Specialist
Please contact via tiger text
Please use your independent medical judgment in providing your response.
--- NOTE | 2025-03-01 07:29 | PN.CDI ---
CDI
- -
CDI:
Physician Documentation Request
Admit Date: 02/24/25 05:46
Dear Doctor Do,
Please review the following and provide your response in the progress notes.
Clinical Indicators:
Laboratory Tests
02/25/25 02/25/25
07:56 20:21
Troponin I 0.066 H* 0.054 H*
Based on the above and your clinical assessment, please clarify in the progress notes, the appropriate diagnosis, if significant, that supports the above abnormalities and additional evaluation, monitoring and/or treatment rendered:
Non-ischemic myocardial injury
Abnormal lab value, clinically insignificant
Other(please specify)
Use of terms such as suspected, likely, concern for, or probable (associated with a specific diagnosis that is being evaluated, monitored, or treated as if it exists) are acceptable and can be coded in the inpatient setting, when documented at the
time of discharge.
Thank you,
Rosa Bland RN BSN CCDS
CDI Specialist
Please contact via tiger text
Please use your independent medical judgment in providing your response.
--- NOTE | 2025-03-01 07:36 | PN.CDI ---
CDI
- -
CDI:
Physician Documentation Request
Admit Date: 02/24/25 05:46
Dear Doctor Do,
Please review the following and provide your response in the progress notes.
Clinical Indicators:
Selected Entries
02/26/25
01:36
Pressure injury stage [Present on admission Sacrum] Stage 2
Physician documentation of the type and location of wounds is required for compliant documentation. Based on the above clinical findings and your assessment, please provide the following in your progress note:
Yes, sacrum stage 2 pressure injury, POA
No, sacrum stage 2 pressure injury
Other (please specify)
1. Location of the ulcer/wound, including laterality.
2. Type (etiology) of ulcer/wound:
- Diabetic ulcer
- Arterial (ischemic) ulcer
- Traumatic wound
- Venous stasis ulcer
- Pressure (decubitus) ulcer
- Non-healing surgical wound
3. For a pressure ulcer, please also include the stage* of the ulcer:
- Stage 1 - Skin intact, non-blanchable redness
- Stage 2 - Partial thickness loss of dermis, includes intact or open blister
- Stage 3 - Full thickness tissue not including bone, tendon or muscle
- Stage 4 - Full thickness tissue loss, including exposed bone, tendon or muscle
- Unstageable - Full thickness loss in which the base of the ulcer is covered by slough (yellow, sierra, [place], green or brown) and/or eschar (sierra, brown or black) in the wound bed.
- Unable to determine
Use of terms such as suspected, likely, concern for, or probable (associated with a specific diagnosis that is being evaluated, monitored, or treated as if it exists) are acceptable and can be coded in the inpatient setting, when documented at the
time of discharge.
Thank you,
Rosa Bland RN BSN CCDS
CDI Specialist
Please contact via tiger text
Please use your independent medical judgment in providing your response.
*Source: National Pressure Ulcer Advisory Panel (NPUAP)
[2025-03-01 08:04] LABS: Hematocrit 22.3 % (39.0-52.0); Hemoglobin 7.4 g/dL (13.0-18.0); Mean Corp Hgb Conc. 33.2 g/dL (33.0-37.0); Mean Corpuscular Volume 89.6 fL (80.0-94.0); Platelet Count 137 10^3/uL (130-400); Red Cell Dist. Width 18.1 % (11.5-14.5)
[2025-03-01 08:42] LABS: Blood Urea Nitrogen 28 mg/dl (9-20); Calcium 8.6 mg/dl (8.4-10.2); Carbon Dioxide 28 mmol/L (22-30); Chloride 102 mmol/L (98-107); Estimated Creatinine Clearance 19 ml/min; Glucose 99 mg/dl (70-99); Magnesium 2.0 mg/dl (1.6-2.3); Potassium 3.9 mmol/L (3.5-5.1); Sodium 134 mmol/L (135-145); eGFR 17.14
[2025-03-01] MEDS: DELTASONE PO (08:45)
--- NOTE | 2025-03-01 08:49 | W.PN.NEPH.PH ---
Today's Communication / Plan
-
Dialysis tomorrow
Assessment/Plan
-
Assessment
ESRD
Left upper extremity AV fistula
donor renal transplant failed
Biopsy-proven IgA nephropathy
hypertension
Anemia
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
Plan
HD [facility]wf , HD tomorrow orders provided
Status post PEG placement on 02/28/2025
Remains on tacrolimus
-
-
Date of Service: March 01, 2025
CC / HPI / ROS
-
Chief Complaint:
Failure to thrive
History of Present Illness:
ESRD status post rehab West Nile virus, Friday
Remains on tacrolimus for liver transplant
Status post transfusion for anemia
Status post PEG placement on 02/28/2025
Review of Systems:
PEG
More awake and interactive today
Responsive no specific complaints
Labs
-
Labs:
WBC 5.4 10^3/uL (4.8-10.8) 03/01/25 07:27
RBC 2.49 10^6/uL (4.70-6.10) L 03/01/25 07:27
Hgb 7.4 g/dL (13.0-18.0) L 03/01/25 07:27
Hct 22.3 % (39.0-52.0) L 03/01/25 07:27
Plt Count 137 10^3/uL (130-400) 03/01/25 07:27
Sodium 134 mmol/L (135-145) L 03/01/25 07:27
Potassium 3.9 mmol/L (3.5-5.1) 03/01/25 07:27
Chloride 102 mmol/L (98-107) 03/01/25 07:27
Carbon Dioxide 28 mmol/L (22-30) 03/01/25 07:27
BUN 28 mg/dl (9-20) H 03/01/25 07:27
Creatinine 3.9 mg/dL (0.7-1.3) H 03/01/25 07:27
eGFR 17.14 03/01/25 07:27
Glucose 99 mg/dl (70-99) 03/01/25 07:27
Calcium 8.6 mg/dl (8.4-10.2) 03/01/25 07:27
Phosphorus 3.5 mg/dl (2.5-4.5) 03/01/25 07:27
Dcz-R-Fodalyeklke Pept Cancelled 02/24/25 02:44
Albumin 3.0 g/dl (3.5-5.0) L 02/24/25 02:33
Physical Exam
-
Vital Signs:
Vital Signs
Temp Pulse Resp BP Pulse Ox
97.6 F 68 13 139/86 97
03/01/25 07:36 03/01/25 07:36 03/01/25 07:36 03/01/25 07:36 03/01/25 07:36
Cardiovascular:: Regular rate and rhythm
Respiratory:: Bilateral: Coarse
Lung Excursion:: Normal
Abdomen:: Nontender and Soft
Bowel Sounds:: Normal
Extremity Edema:: None: Bilateral:
Other Findings::
Cachectic
--- NOTE | 2025-03-01 08:54 | W.PN.HOSP.TC ---
Today's Communication/Plan
-
see bold
Assessment / Plan
Assessment / Plan
HPI: 59-year-old with multiple medical comorbidities most notably end-stage renal disease with failed kidney transplant currently on hemodialysis Friday, history of hypertension, seizure disorder, recent admission for West Nile
encephalitis with epilepsy dysfunction, history of sudden cardiac arrest presenting to the emergency with sudden onset chest pressure and shortness of breath with associated nausea. Ischemic findings were negative with normal ECG, troponin of
0.033. However he had an x-ray with a new retrocardiac opacity. He had a temp of 100.5. CBC was unremarkable. His electrolytes were stable. BUN/creatinine reflective of ESRD. Patient is currently hemodynamically stable and not hypoxic.
Assessment/plan:
#Left-sided chest pressure with shortness of breath
Rule out pneumonia -retrocardiac opacity, fever. Immunosuppressed and recent hospitalization and stay in rehab facility
Rule out volume overload-chest x-ray also suggests CHF n the retrocardiac opacity may be a typical edema; BNP is also elevated Last echo here LVEF is 60-65% by visual estimation. Mild concentric LVH. Normal diastolic function.
Troponins on admission does not suggest acute coronary syndrome. EKG shows LVH no acute ST-T changes. Patient symptoms now resolved, suspect fluid related.
Repeat chest x-ray after hemodialysis shows resolving increased pulmonary vascularity but cannot exclude patchy left basilar subsegmental atelectasis versus pneumonia. With dysphagia cannot rule out aspiration pneumonia/pneumonitis. Cultures
negative to date
Patient has received 5 days of Unasyn, will discontinue
#Dysphagia
Patient is on modified diet and has function of swallow got worse. Failed FEES currently NPO.
With a change in the volume of the speech, prominence of the left base of the tongue obtained ENT eval
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 He also lost weight. They are recommending tube feeds and to keep n.p.o. for now
Appreciate GI input, status post PEG placement 02/28
Okay to start tube feeds today, GI has signed off
#End-stage renal disease
#Hyponatremia
Continue dialysis as per nephrology
Continue antirejection taper with tacrolimus 0.5 mg twice daily and prednisone 1 mg
Continue salt restriction, continue sevelamer
#Anemia of chronic kidney disease
No signs of external bleeding
Hemoglobin improved to 7.4, was 7.0, increased from 6.2 status post 1 unit packed red blood cells 02/27
Heme test stools
#History of West Nile encephalitis recently-continue with therapies
History of seizure disorder-continue with Keppra
#History of cardiac arrest/afib
No defibrillator noted, continue Amio
Unclear why he is not ac and can't be sure of hx
#Hypertension
Clonidine patch, nifedipine 60 daily, hydralazine 50 twice daily, losartan 50 twice daily
#Stage II sacral pressure injury, present upon admission
Continue wound care
#Underweight BMI
Encourage intake
#Nonischemic myocardial injury troponin elevation
DVT PPX - heparin sq
Code status - Full code
Total time spent to see the patient on the floor, examine the patient, review data and lab results, discuss treatment plan with patient, nursing staff around 50 minutes.
Physical Exam
General: No acute distress
HEENT: Normocephalic, Atraumatic, EOMI, MMM
Soft voice
Respiratory: Clear to Auscultation bilaterally
Cardiac: Normal S1/S2, Regular Rate and Rhythm
GI: Soft, +PEG tube, Nondistended, Normal Bowel Sounds
Extremities: No Clubbing, Cyanosis, or Edema
Neuro: Nonfocal/Grossly Intact
Anticipated Discharge: 24 - 48 hours
Subjective/Interval History
-
Date of Service: March 01, 2025
Patient complains of pain around his PEG site. Denies nausea, denies vomiting. No chest pain, shortness of breath. No fever.
Objective Data
-
Labs:
Laboratory Results
03/01/25
07:27
WBC 5.4
Hgb 7.4 L
Hct 22.3 L
Plt Count 137
Sodium 134 L
Potassium 3.9
Chloride 102
Carbon Dioxide 28
BUN 28 H
Creatinine 3.9 H
Glucose 99
Calcium 8.6
Vital Signs:
Vital Signs
Temp Pulse Resp BP Pulse Ox
97.6 F 68 13 139/86 97
03/01/25 07:36 03/01/25 07:36 03/01/25 07:36 03/01/25 07:36 03/01/25 07:36
I&O
02/28/25 03/01/25 03/02/25
06:59 06:59 06:59
Intake Total 1740 / 1740 660 / 660
Output Total 0 / 0
Balance 1740 / 1740 660 / 660
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
[2025-03-01] MEDS: KEPPRA 500 MG IV (09:20)
[2025-03-01] MEDS: SOLU-CORTEF 25 MG IV ×2 (09:20→20:06)
[2025-03-01] MEDS: LIDOCAINE 4% PATCH 1 PATCH TOPICAL (09:20)
[2025-03-01] MEDS: PROTONIX IV 40 MG IV ×2 (09:21→20:03)
[2025-03-01] MEDS: NSS (PRESERVATIVE FREE) 10 ML IV ×2 (09:22→20:03)
[2025-03-01] MEDS: SENOKOT-S PO ×2 (09:22→20:10)
[2025-03-01] MEDS: HEPARIN 5000 UNITS SC ×3 (09:22→23:17)
--- NOTE | 2025-03-01 14:20 | CM ---
Reviewed the chart notes and spoke with the patient's brother Joe ([phone]). He confirms discharge is to his house in [place]. Per Joe, his 23 yo daughter is home during the day to care for the patient and he will be available in the
afternoons and through the nights. His home is a one story home with no carpets. Per Joe, [facility] has ordered a wheelchair and shower chair. Per Joe, he will transport the patient in the morning and daughter will transport home.
Joe's address:
[address] [place] [id number]
LAUREN spoke with Janak with [employer] ([phone] ext [phone]) ( ). Patient is set for a -W- 7am schedule at [facility] HD site. Clinicals and TF information needed to be faxed to [facility] regarding TF are continuous.
Clinicals faxed to [facility] ([phone])for home TFs.
Plan: Discharge to brother Joe's home when all arrangements for HD, TF, VN are finalized. Joe will transport patient home.
--- NOTE | 2025-03-01 15:32 | PTCARENOTE ---
Patient started on TF as ordered. Nepro w/carb steady initial dose at 10 ml/hr, with 25ml/hr flush. Goal rate 55ml/hr. Pt tolerating TF well at this time. No c/o at this time. call rothman within reach.
[2025-03-01] MEDS: REMOVE LIDOCAINE PATCH 1 PATCH REMOVE (20:05)
[2025-03-01] MEDS: REFRESH EYE DROPS (PF) 1 DROPS BOTH EYES (21:48)
[2025-03-01] MEDS: PROGRAF 0.5 MG PO (21:48)
[2025-03-01] MEDS: NEURONTIN 100 MG TUBE (21:51)
[2025-03-02] MEDS: TYLENOL 650 MG TUBE ×3 (01:48→20:31)
[2025-03-02 03:12] VITALS: BMI 18.4
[2025-03-02 06:42] LABS: Hematocrit 22.8 % (39.0-52.0); Hemoglobin 7.4 g/dL (13.0-18.0); Mean Corp Hgb Conc. 32.5 g/dL (33.0-37.0); Mean Corpuscular Volume 87.7 fL (80.0-94.0); Platelet Count 143 10^3/uL (130-400); Red Cell Dist. Width 17.4 % (11.5-14.5)
[2025-03-02 07:00] VITALS: BP 135/86
[2025-03-02 07:16] LABS: Blood Urea Nitrogen 38 mg/dl (9-20); Calcium 9.0 mg/dl (8.4-10.2); Carbon Dioxide 27 mmol/L (22-30); Chloride 100 mmol/L (98-107); Estimated Creatinine Clearance 16 ml/min; Glucose 117 mg/dl (70-99); Potassium 4.1 mmol/L (3.5-5.1); Sodium 132 mmol/L (135-145); eGFR 13.36
[2025-03-02] MEDS: RETACRIT 10000 UNITS IV (08:42)
[2025-03-02] MEDS: SENOKOT-S 2 TABLET PO (09:13)
[2025-03-02] MEDS: DELTASONE 3 MG PO (09:13)
[2025-03-02] MEDS: FOLVITE 1 MG TUBE (09:13)
[2025-03-02] MEDS: VITAMIN D3 (cholecalciferol) 10 MCG TUBE (09:14)
[2025-03-02] MEDS: KEPPRA 500 MG TUBE (09:14)
[2025-03-02] MEDS: PACERONE 200 MG TUBE (09:15)
[2025-03-02] MEDS: LIDOCAINE 4% PATCH 1 PATCH TOPICAL (09:15)
[2025-03-02] MEDS: PROGRAF 0.5 MG PO ×2 (09:16→20:31)
[2025-03-02] MEDS: PROTONIX IV 40 MG IV ×2 (09:16→20:30)
[2025-03-02] MEDS: SOLU-CORTEF 25 MG IV ×2 (09:16→20:32)
[2025-03-02] MEDS: NSS (PRESERVATIVE FREE) 10 ML IV ×2 (09:16→20:30)
[2025-03-02] MEDS: HEPARIN 5000 UNITS SC ×3 (09:19→22:59)
--- NOTE | 2025-03-02 10:10 | W.PN.HOSP.TC ---
Today's Communication/Plan
-
PEG tube teaching to family
Discharge planning
Assessment / Plan
Assessment / Plan
HPI: 59-year-old with multiple medical comorbidities most notably end-stage renal disease with failed kidney transplant currently on hemodialysis Friday, history of hypertension, seizure disorder, recent admission for West Nile
encephalitis with epilepsy dysfunction, history of sudden cardiac arrest presenting to the emergency with sudden onset chest pressure and shortness of breath with associated nausea. Ischemic findings were negative with normal ECG, troponin of
0.033. However he had an x-ray with a new retrocardiac opacity. He had a temp of 100.5. CBC was unremarkable. His electrolytes were stable. BUN/creatinine reflective of ESRD. Patient is currently hemodynamically stable and not hypoxic.
Assessment/plan:
#Left-sided chest pressure with shortness of breath
Rule out pneumonia -retrocardiac opacity, fever. Immunosuppressed and recent hospitalization and stay in rehab facility
Rule out volume overload-chest x-ray also suggests CHF n the retrocardiac opacity may be a typical edema; BNP is also elevated Last echo here LVEF is 60-65% by visual estimation. Mild concentric LVH. Normal diastolic function.
Troponins on admission does not suggest acute coronary syndrome. EKG shows LVH no acute ST-T changes. Patient symptoms now resolved, suspect fluid related.
Repeat chest x-ray after hemodialysis shows resolving increased pulmonary vascularity but cannot exclude patchy left basilar subsegmental atelectasis versus pneumonia. With dysphagia cannot rule out aspiration pneumonia/pneumonitis. Cultures
negative to date
Patient has received 5 days of Unasyn, he does not need any more antibiotics
#Dysphagia
Patient is on modified diet and has function of swallow got worse. Failed FEES currently NPO.
With a change in the volume of the speech, prominence of the left base of the tongue obtained ENT eval
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 He also lost weight. They are recommending tube feeds and to keep n.p.o. for now
Appreciate GI input, status post PEG placement 02/28. GI has signed off
Patient tolerating tube feeds, asked nursing staff to teach family how to administer tube feeds
#End-stage renal disease
#Hyponatremia
Continue dialysis as per nephrology
Continue antirejection taper with tacrolimus 0.5 mg twice daily and prednisone 3 mg
Continue salt restriction, continue sevelamer
#Anemia of chronic kidney disease
No signs of external bleeding
Hemoglobin improved to 7.4, was 7.0, increased from 6.2 status post 1 unit packed red blood cells 02/27
Heme test stools
#History of West Nile encephalitis recently-continue with therapies
History of seizure disorder-continue with Keppra
#History of cardiac arrest/afib
No defibrillator noted, continue Amio
Unclear why he is not ac and can't be sure of hx
#Hypertension
Clonidine patch, nifedipine 60 daily, hydralazine 50 twice daily, losartan 50 twice daily
#Stage II sacral pressure injury, present upon admission
Continue wound care
#Underweight BMI
Encourage intake
#Nonischemic myocardial injury troponin elevation
DVT PPX - heparin sq
Code status - Full code
Total time spent to see the patient on the floor, examine the patient, review data and lab results, discuss treatment plan with patient, nursing staff around 40 minutes.
Physical Exam
General: No acute distress
HEENT: Normocephalic, Atraumatic, EOMI, MMM
Soft voice
Respiratory: Clear to Auscultation bilaterally
Cardiac: Normal S1/S2, Regular Rate and Rhythm
GI: Soft, +PEG tube, Nondistended, Normal Bowel Sounds
Extremities: No Clubbing, Cyanosis, or Edema
Neuro: Nonfocal/Grossly Intact
Anticipated Discharge: Within 24 hours
Subjective/Interval History
-
Date of Service: March 01, 2025
Patient reports tenderness around his PEG tube site. Denies nausea, denies vomiting. No chest pain, no shortness of breath. No fever.
Objective Data
-
Labs:
Laboratory Results
03/01/25
07:27
WBC 5.4
Hgb 7.4 L
Hct 22.3 L
Plt Count 137
Sodium 134 L
Potassium 3.9
Chloride 102
Carbon Dioxide 28
BUN 28 H
Creatinine 3.9 H
Glucose 99
Calcium 8.6
Vital Signs:
Vital Signs
Temp Pulse Resp BP Pulse Ox
98.0 F 68 15 139/85 97
03/01/25 12:00 03/01/25 12:00 03/01/25 12:00 03/01/25 12:00 03/01/25 12:00
I&O
02/28/25 03/01/25 03/02/25
06:59 06:59 06:59
Intake Total 1740 / 1740 660 / 660
Output Total 0 / 0
Balance 1740 / 1740 660 / 660
--- NOTE | 2025-03-02 10:24 | W.PN.NEPH.HD ---
Progress Note - Hemodialysis
-
Date of Service: March 02, 2025
Duration: 30 minutes and 3 hours
Potassium Bath: 3
Calcium Bath: 2.5
Opti-Dialyzer: 160
Ultrafiltration: Other (1 kg)
Blood Flow: 400
Dialysate Flow: 600
Heparin: none
EPO: 10,000
--- NOTE | 2025-03-02 11:43 | CM ---
Addendum entered by Aide Villarreal RN 03/02/25 15:43:
Tube Feed Order form presented to Dr. Forte today for completion.
Addendum entered by Aide Villarreal RN 03/02/25 15:15:
Received blank TF order form. Attached to chart for hospitalist to complete. GI has signed off. LAUREN spoke with Fernie with [employer], patient is approved for their [place] site. She will fax acceptance letter to CM office.
Addendum entered by Aide Villarreal RN 03/02/25 13:46:
CM TT to dubbing machine operator regarding family requesting night time feeding schedule. Economic Development Director will adjust her calculations for night time feeding schedule. LAUREN spoke with Jeff with [employer] and updated that the feeding schedule will not be continuous.
Spoke with Mallorie with [facility]. [facility] requesting an order reflecting: type of tube feeding; delivery mode (continuous via pump, gravity, bolus); rate of tube feeding with water flush rate; and type of tube patient has (size
of peg tube). LAUREN requested a blank order form from [facility], awaiting it to be faxed. LAUREN sent message through [facility] inquiring if Connie [facility] will be able to educate the family on how to administer feedings and medications via peg tube. Awaiting
their answer. LAUREN updated the brother and patient at the bedside.
Original Note:
Reviewed the chart notes. Connie accepted patient in [facility].
Plan: Discharge to [facility] with Connie [facility].
Connie
[2025-03-02 15:00] VITALS: BP 153/93
[2025-03-02 15:25] VITALS: BP 147/91; PULSE 78; O2SAT 92
[2025-03-02] MEDS: KEPPRA 250 MG TUBE (16:35)
[2025-03-02] MEDS: REFRESH EYE DROPS (PF) BOTH EYES (20:31)
[2025-03-02] MEDS: NEURONTIN 100 MG TUBE (20:31)
[2025-03-02] MEDS: REMOVE LIDOCAINE PATCH 1 PATCH REMOVE (20:32)
[2025-03-02] MEDS: SENOKOT-S PO (21:13)
[2025-03-02] MEDS: COLACE LIQUID 100 MG TUBE (22:31)
[2025-03-02] MEDS: SENNA SYRUP 17.6 MG TUBE (22:31)
[2025-03-02 23:11] VITALS: BP 135/86
[2025-03-03 05:05] VITALS: BMI 18.7
[2025-03-03] MEDS: TYLENOL 650 MG TUBE ×3 (06:06→22:07)
[2025-03-03 07:20] VITALS: BP 137/84
[2025-03-03 08:09] LABS: Hematocrit 22.2 % (39.0-52.0); Hemoglobin 7.4 g/dL (13.0-18.0); Mean Corp Hgb Conc. 33.3 g/dL (33.0-37.0); Mean Corpuscular Volume 89.2 fL (80.0-94.0); Platelet Count 148 10^3/uL (130-400); Red Cell Dist. Width 17.3 % (11.5-14.5)
[2025-03-03 08:37] LABS: Blood Urea Nitrogen 28 mg/dl (9-20); Calcium 8.5 mg/dl (8.4-10.2); Carbon Dioxide 29 mmol/L (22-30); Chloride 97 mmol/L (98-107); Estimated Creatinine Clearance 23 ml/min; Glucose 142 mg/dl (70-99); Potassium 3.6 mmol/L (3.5-5.1); Sodium 130 mmol/L (135-145); eGFR 20.95
[2025-03-03] MEDS: CATAPRES-TTS-2 0.2 MG TRANSDERM (08:44)
[2025-03-03] MEDS: LIDOCAINE 4% PATCH 1 PATCH TOPICAL (08:46)
[2025-03-03] MEDS: COLACE LIQUID 100 MG TUBE ×2 (08:47→20:55)
[2025-03-03] MEDS: KEPPRA 500 MG TUBE (08:47)
[2025-03-03] MEDS: PROGRAF 0.5 MG PO ×2 (08:47→20:55)
[2025-03-03] MEDS: SENNA SYRUP 17.6 MG TUBE ×2 (08:47→20:55)
[2025-03-03] MEDS: HEPARIN 5000 UNITS SC ×2 (08:48→15:45)
[2025-03-03] MEDS: PACERONE 200 MG TUBE (08:49)
[2025-03-03] MEDS: VITAMIN D3 (cholecalciferol) 10 MCG TUBE (08:49)
[2025-03-03] MEDS: DELTASONE 3 MG PO (08:49)
[2025-03-03] MEDS: FOLVITE 1 MG TUBE (08:50)
[2025-03-03] MEDS: SOLU-CORTEF 25 MG IV ×2 (08:50→20:56)
[2025-03-03] MEDS: PROTONIX IV 40 MG IV ×2 (08:50→20:55)
[2025-03-03] MEDS: NSS (PRESERVATIVE FREE) 10 ML IV ×2 (08:50→20:55)
--- NOTE | 2025-03-03 09:03 | W.PN.HOSP.TC ---
Today's Communication/Plan
-
Discharge planning
Assessment / Plan
Assessment / Plan
HPI: 59-year-old with multiple medical comorbidities most notably end-stage renal disease with failed kidney transplant currently on hemodialysis Friday, history of hypertension, seizure disorder, recent admission for [place] Nile
encephalitis with epilepsy dysfunction, history of sudden cardiac arrest presenting to the emergency with sudden onset chest pressure and shortness of breath with associated nausea. Ischemic findings were negative with normal ECG, troponin of
0.033. However he had an x-ray with a new retrocardiac opacity. He had a temp of 100.5. CBC was unremarkable. His electrolytes were stable. BUN/creatinine reflective of ESRD. Patient is currently hemodynamically stable and not hypoxic.
Assessment/plan:
#Left-sided chest pressure with shortness of breath
Rule out pneumonia -retrocardiac opacity, fever. Immunosuppressed and recent hospitalization and stay in rehab facility
Rule out volume overload-chest x-ray also suggests CHF n the retrocardiac opacity may be a typical edema; BNP is also elevated Last echo here LVEF is 60-65% by visual estimation. Mild concentric LVH. Normal diastolic function.
Troponins on admission does not suggest acute coronary syndrome. EKG shows LVH no acute ST-T changes. Patient symptoms now resolved, suspect fluid related.
Repeat chest x-ray after hemodialysis shows resolving increased pulmonary vascularity but cannot exclude patchy left basilar subsegmental atelectasis versus pneumonia. With dysphagia cannot rule out aspiration pneumonia/pneumonitis. Cultures
negative to date
Patient has received 5 days of Unasyn, he does not need any more antibiotics
#Dysphagia
Patient is on modified diet and has function of swallow got worse. Failed FEES currently NPO.
With a change in the volume of the speech, prominence of the left base of the tongue obtained ENT eval
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 He also lost weight. They are recommending tube feeds and to keep n.p.o. for now
Appreciate GI input, status post PEG placement 02/28. GI has signed off
Patient tolerating tube feeds, asked nursing staff to teach family how to administer tube feeds
#End-stage renal disease
#Hyponatremia
Continue dialysis as per nephrology
Continue antirejection taper with tacrolimus 0.5 mg twice daily and prednisone 3 mg
Continue salt restriction, continue sevelamer
#Anemia of chronic kidney disease
No signs of external bleeding
Hemoglobin improved to 7.4, was 7.0, increased from 6.2 status post 1 unit packed red blood cells 02/27
Heme test stools
#History of West Nile encephalitis recently-continue with therapies
History of seizure disorder-continue with Keppra
#History of cardiac arrest/afib
No defibrillator noted, continue Amio
Unclear why he is not ac and can't be sure of hx
#Hypertension
Clonidine patch, nifedipine 60 daily, hydralazine 50 twice daily, losartan 50 twice daily
#Stage II sacral pressure injury, present upon admission
Continue wound care
#Underweight BMI
Encourage intake
#Nonischemic myocardial injury troponin elevation
DVT PPX - heparin sq
Code status - Full code
Total time spent to see the patient on the floor, examine the patient, review data and lab results, discuss treatment plan with patient, nursing staff around 35 minutes.
Physical Exam
General: No acute distress
HEENT: Normocephalic, Atraumatic, EOMI, MMM
Soft voice
Respiratory: Clear to Auscultation bilaterally
Cardiac: Normal S1/S2, Regular Rate and Rhythm
GI: Soft, +PEG tube, Nondistended, Normal Bowel Sounds
Extremities: No Clubbing, Cyanosis, or Edema
Neuro: Nonfocal/Grossly Intact
Anticipated Discharge: Within 24 hours
Subjective/Interval History
-
Date of Service: March 03, 2025
Denies CP/SOP/palp. He is tolerating his tube feeds. No fever, no vomiting.
Objective Data
-
Labs:
Laboratory Results
03/03/25
07:10
WBC 6.8
Hgb 7.4 L
Hct 22.2 L
Plt Count 148
Sodium 130 L
Potassium 3.6
Chloride 97 L
Carbon Dioxide 29
BUN 28 H
Creatinine 3.3 H
Glucose 142 H
Calcium 8.5
Vital Signs:
Vital Signs
Temp Pulse Resp BP Pulse Ox
98.4 F 67 18 137/84 94
03/03/25 07:20 03/03/25 08:49 03/03/25 07:20 03/03/25 08:49 03/03/25 07:20
I&O
03/02/25 03/03/25 03/04/25
06:59 06:59 06:59
Intake Total 1460 / 1460 1440 / 1440
Balance 1460 / 1460 1440 / 1440
--- NOTE | 2025-03-03 13:15 | CM ---
Addendum entered by Aide Villarreal RN 03/03/25 16:13:
CM called [facility] to update on patient not needing TF for home since going to SNF.
Addendum entered by Aide Villarreal RN 03/03/25 15:48:
CM spoke with the patient and brother Joe at the bedside. Discussed area SNFs. Patient agreeable to referrals being sent to area SNFs. Permission received from patient to speak with brother Joe and his Giselle regarding discharge plans.
Original Note:
Reviewed the chart notes. Received call from patient's [id number] (Giselle [phone]) with whom the patient was planning on moving in with. Giselle voice concern of complexity of the patient's medical needs. Per Giselle, family discussed and
patient will need to go to SNF prior to transitioning to someone's home. Patient's brother Joe, who he had planned to move in with will be in today to explain this to the patient. Explained to Giselle that there are a couple of barriers for SNF
placement. One big one is the patient being on dialysis and the other is his age. CM continues to be available to patient/family and is monitoring medical plan for needs at discharge.
Plan: Discharge plans may pivot away from discharge to brother's home, but now to a SNF. Will wait to speak with the patient regarding area SNFs until his brother breaks the news to him.
[2025-03-03 14:02] VITALS: BP 146/85; PULSE 66; O2SAT 95
[2025-03-03 14:03] VITALS: BP 146/85; PULSE 65; O2SAT 96
[2025-03-03 15:20] VITALS: BP 146/87
--- NOTE | 2025-03-03 15:49 | W.PN.NEPH.PH ---
Today's Communication / Plan
-
hd fri
Assessment/Plan
-
Assessment
ESRD
Left upper extremity AV fistula
donor renal transplant failed
Biopsy-proven IgA nephropathy
hypertension
Anemia
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
Plan
HD [facility] , HD tomorrow orders provided
Status post PEG placement on 02/28/2025
Remains on tacrolimus
-
-
Date of Service: March 03, 2025
CC / HPI / ROS
-
Chief Complaint:
Failure to thrive
History of Present Illness:
ESRD status post rehab West Nile virus, Friday
Remains on tacrolimus for liver transplant
Status post transfusion for anemia
Status post PEG placement on 02/28/2025
Review of Systems:
PEG
More awake and interactive today
Responsive no specific complaints
Labs
-
Labs:
WBC 6.8 10^3/uL (4.8-10.8) 03/03/25 07:10
RBC 2.49 10^6/uL (4.70-6.10) L 03/03/25 07:10
Hgb 7.4 g/dL (13.0-18.0) L 03/03/25 07:10
Hct 22.2 % (39.0-52.0) L 03/03/25 07:10
Plt Count 148 10^3/uL (130-400) 03/03/25 07:10
Sodium 130 mmol/L (135-145) L 03/03/25 07:10
Potassium 3.6 mmol/L (3.5-5.1) 03/03/25 07:10
Chloride 97 mmol/L (98-107) L 03/03/25 07:10
Carbon Dioxide 29 mmol/L (22-30) 03/03/25 07:10
BUN 28 mg/dl (9-20) H 03/03/25 07:10
Creatinine 3.3 mg/dL (0.7-1.3) H 03/03/25 07:10
eGFR 20.95 03/03/25 07:10
Glucose 142 mg/dl (70-99) H 03/03/25 07:10
Calcium 8.5 mg/dl (8.4-10.2) 03/03/25 07:10
Phosphorus 3.5 mg/dl (2.5-4.5) 03/01/25 07:27
Ooc-I-Gfpkajfzpad Pept Cancelled 02/24/25 02:44
Albumin 3.0 g/dl (3.5-5.0) L 02/24/25 02:33
Physical Exam
-
Vital Signs:
Vital Signs
Temp Pulse Resp BP Pulse Ox
97.4 F 65 16 146/87 97
03/03/25 15:20 03/03/25 15:20 03/03/25 15:20 03/03/25 15:20 03/03/25 15:20
Cardiovascular:: Regular rate and rhythm
Respiratory:: Bilateral: Coarse
Lung Excursion:: Normal
Abdomen:: Nontender and Soft
Bowel Sounds:: Normal
Extremity Edema:: None: Bilateral:
Other Findings::
Cachectic
[2025-03-03] MEDS: REMOVE LIDOCAINE PATCH 1 PATCH REMOVE (20:56)
[2025-03-03] MEDS: NEURONTIN 100 MG TUBE (22:08)
[2025-03-03] MEDS: REFRESH EYE DROPS (PF) 1 DROPS BOTH EYES (22:08)
[2025-03-03 23:00] VITALS: BP 149/89
[2025-03-04] MEDS: HEPARIN 5000 UNITS SC ×4 (00:24→23:13)
[2025-03-04] MEDS: TYLENOL 650 MG TUBE ×2 (02:59→21:46)
[2025-03-04 06:00] VITALS: BMI 18.7
[2025-03-04 07:00] VITALS: BP 176/96
[2025-03-04 08:54] LABS: Hematocrit 22.1 % (39.0-52.0); Hemoglobin 7.2 g/dL (13.0-18.0); Mean Corp Hgb Conc. 32.6 g/dL (33.0-37.0); Mean Corpuscular Volume 88.0 fL (80.0-94.0); Platelet Count 163 10^3/uL (130-400); Red Cell Dist. Width 17.6 % (11.5-14.5)
[2025-03-04] MEDS: RETACRIT 10000 UNITS IV (08:54)
--- NOTE | 2025-03-04 09:04 | W.PN.HOSP.TC ---
Today's Communication/Plan
-
Discharge to short-term rehab when bed available
Assessment / Plan
Assessment / Plan
HPI: 59-year-old with multiple medical comorbidities most notably end-stage renal disease with failed kidney transplant currently on hemodialysis Friday, history of hypertension, seizure disorder, recent admission for West Nile
encephalitis with epilepsy dysfunction, history of sudden cardiac arrest presenting to the emergency with sudden onset chest pressure and shortness of breath with associated nausea. Ischemic findings were negative with normal ECG, troponin of
0.033. However he had an x-ray with a new retrocardiac opacity. He had a temp of 100.5. CBC was unremarkable. His electrolytes were stable. BUN/creatinine reflective of ESRD. Patient is currently hemodynamically stable and not hypoxic.
Assessment/plan:
#Left-sided chest pressure with shortness of breath
Rule out pneumonia -retrocardiac opacity, fever. Immunosuppressed and recent hospitalization and stay in rehab facility
Rule out volume overload-chest x-ray also suggests CHF n the retrocardiac opacity may be a typical edema; BNP is also elevated Last echo here LVEF is 60-65% by visual estimation. Mild concentric LVH. Normal diastolic function.
Troponins on admission does not suggest acute coronary syndrome. EKG shows LVH no acute ST-T changes. Patient symptoms now resolved, suspect fluid related.
Repeat chest x-ray after hemodialysis shows resolving increased pulmonary vascularity but cannot exclude patchy left basilar subsegmental atelectasis versus pneumonia. With dysphagia cannot rule out aspiration pneumonia/pneumonitis. Cultures
negative to date
Patient has received 5 days of Unasyn, he does not need any more antibiotics
#Dysphagia
Patient is on modified diet and has function of swallow got worse. Failed FEES currently NPO.
With a change in the volume of the speech, prominence of the left base of the tongue obtained ENT eval
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 He also lost weight. They are recommending tube feeds and to keep n.p.o. for now
Appreciate GI input, status post PEG placement 02/28. GI has signed off
Patient tolerating tube feeds
#End-stage renal disease
#Hyponatremia
Continue dialysis as per nephrology
Continue antirejection taper with tacrolimus 0.5 mg twice daily and prednisone 3 mg
Continue salt restriction, continue sevelamer
#Anemia of chronic kidney disease
No signs of external bleeding
Hemoglobin improved to 7.2, was 7.0, increased from 6.2 status post 1 unit packed red blood cells 02/27
Heme test stools
#History of West Nile encephalitis recently-continue with therapies
History of seizure disorder-continue with Keppra
#History of cardiac arrest/afib
No defibrillator noted, continue Amio
Unclear why he is not ac and can't be sure of hx
#Hypertension
Clonidine patch, nifedipine 60 daily, hydralazine 50 twice daily, losartan 50 twice daily
#Stage II sacral pressure injury, present upon admission
Continue wound care
#Underweight BMI
Encourage intake
#Nonischemic myocardial injury troponin elevation
DVT PPX - heparin sq
Code status - Full code
Total time spent to see the patient on the floor, examine the patient, review data and lab results, discuss treatment plan with patient, nursing staff around 35 minutes.
Physical Exam
General: No acute distress
HEENT: Normocephalic, Atraumatic, EOMI, MMM
Soft voice
Respiratory: Clear to Auscultation bilaterally
Cardiac: Normal S1/S2, Regular Rate and Rhythm
GI: Soft, +PEG tube, Nondistended, Normal Bowel Sounds
Extremities: No Clubbing, Cyanosis, or Edema
Neuro: Nonfocal/Grossly Intact
Anticipated Discharge: Within 24 hours
Subjective/Interval History
-
Date of Service: March 04, 2025
No acute events overnight. Patient denies chest pain, denies shortness of breath. No fever, no vomiting.
Objective Data
-
Labs:
Laboratory Results
03/04/25 03/04/25
07:43 07:47
WBC 6.7
Hgb 7.2 L
Hct 22.1 L
Plt Count 163
Sodium Pending
Potassium Pending
Chloride Pending
Carbon Dioxide Pending
BUN Pending
Creatinine Pending
Glucose Pending
Calcium Pending
Vital Signs:
Vital Signs
Temp Pulse Resp BP Pulse Ox
97.4 F 74 18 149/89 97
03/03/25 23:00 03/03/25 23:00 03/03/25 23:00 03/03/25 23:00 03/03/25 23:00
I&O
03/03/25 03/04/25 03/05/25
06:59 06:59 06:59
Intake Total 1440 / 1440 120 / 120
Output Total 0 / 0
Balance 1440 / 1440 120 / 120
[2025-03-04 09:17] LABS: Blood Urea Nitrogen 38 mg/dl (9-20); Calcium 8.8 mg/dl (8.4-10.2); Carbon Dioxide 26 mmol/L (22-30); Chloride 95 mmol/L (98-107); Estimated Creatinine Clearance 17 ml/min; Glucose 111 mg/dl (70-99); Potassium 3.7 mmol/L (3.5-5.1); Sodium 126 mmol/L (135-145); eGFR 14.83
[2025-03-04] MEDS: LIDOCAINE 4% PATCH 1 PATCH TOPICAL (09:47)
[2025-03-04] MEDS: COLACE LIQUID 100 MG TUBE (09:48)
[2025-03-04] MEDS: KEPPRA 500 MG TUBE (09:48)
[2025-03-04] MEDS: SENNA SYRUP 17.6 MG TUBE (09:48)
[2025-03-04] MEDS: VITAMIN D3 (cholecalciferol) 10 MCG TUBE (09:48)
[2025-03-04] MEDS: DELTASONE 3 MG PO (09:48)
[2025-03-04] MEDS: FOLVITE 1 MG TUBE (09:49)
[2025-03-04] MEDS: PROGRAF 0.5 MG PO ×2 (09:49→19:42)
[2025-03-04] MEDS: PACERONE 200 MG TUBE (09:49)
--- NOTE | 2025-03-04 09:49 | W.PN.NEPH.HD ---
Assessment
-
Patient seen on dialysis
Systolic blood pressure stable at current U/F
DC free water flushes his serum sodium level dropping to 120
Progress Note - Hemodialysis
-
Date of Service: March 04, 2025
Duration: 30 minutes and 3 hours
Potassium Bath: 3
Calcium Bath: 2.5
Opti-Dialyzer: 160
Ultrafiltration: Other (1-2kg)
Blood Flow: 400
Dialysate Flow: 600
Heparin: none
EPO: 10K
[2025-03-04] MEDS: PROTONIX IV 40 MG IV ×2 (09:50→19:41)
[2025-03-04] MEDS: NSS (PRESERVATIVE FREE) 10 ML IV ×2 (09:50→19:41)
[2025-03-04] MEDS: SOLU-CORTEF 25 MG IV ×2 (09:52→19:41)
[2025-03-04 15:00] VITALS: BP 144/85
[2025-03-04 15:08] VITALS: BP 144/89; PULSE 80; O2SAT 92
[2025-03-04 15:11] VITALS: BP 144/89; PULSE 81
--- NOTE | 2025-03-04 15:54 | CM ---
CM spoke with Gabri[facility] from [facility] [phone]. CM responded to [facility], as well as [facility]. Await confirmation of acceptance with current [facility] site information communicated.
CM will continue to follow for discharge planning needs.
Plan; SNF pending confirmation of acceptance; will need auth
[2025-03-04] MEDS: KEPPRA 250 MG TUBE (16:33)
[2025-03-04] MEDS: REMOVE LIDOCAINE PATCH 1 PATCH REMOVE (19:41)
[2025-03-04] MEDS: SENNA SYRUP TUBE (19:41)
[2025-03-04] MEDS: COLACE LIQUID TUBE (19:41)
[2025-03-04] MEDS: NEURONTIN 100 MG TUBE (21:46)
[2025-03-04] MEDS: REFRESH EYE DROPS (PF) BOTH EYES (21:48)
[2025-03-04 23:25] VITALS: BP 139/86
[2025-03-05 06:00] VITALS: BMI 19.1
[2025-03-05] MEDS: TYLENOL 650 MG TUBE ×2 (06:03→22:25)
[2025-03-05 07:00] VITALS: BP 159/93
--- NOTE | 2025-03-05 08:31 | W.PN.NEPH.PH ---
Today's Communication / Plan
-
Dialysis Friday
Assessment/Plan
-
Assessment
ESRD
Left upper extremity AV fistula
donor renal transplant failed
Biopsy-proven IgA nephropathy
hypertension
Anemia
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
Plan
HD mwf , HD for Friday
Status post PEG placement on 02/28/2025
Remains on tacrolimus
Disposition pending rehab placement
-
-
Date of Service: March 05, 2025
CC / HPI / ROS
-
Chief Complaint:
Failure to thrive
History of Present Illness:
ESRD status post rehab West Nile virus, Friday
Remains on tacrolimus for liver transplant
Status post transfusion for anemia, anemia persist with hemoglobin around 7
Status post PEG placement on 02/28/2025
Review of Systems:
PEG
Awake and alert and conversational
Labs
-
Labs:
WBC 6.7 10^3/uL (4.8-10.8) 03/04/25 07:47
RBC 2.51 10^6/uL (4.70-6.10) L 03/04/25 07:47
Hgb 7.2 g/dL (13.0-18.0) L 03/04/25 07:47
Hct 22.1 % (39.0-52.0) L 03/04/25 07:47
Plt Count 163 10^3/uL (130-400) 03/04/25 07:47
Sodium 126 mmol/L (135-145) L 03/04/25 07:43
Potassium 3.7 mmol/L (3.5-5.1) 03/04/25 07:43
Chloride 95 mmol/L (98-107) L 03/04/25 07:43
Carbon Dioxide 26 mmol/L (22-30) 03/04/25 07:43
BUN 38 mg/dl (9-20) H 03/04/25 07:43
Creatinine 4.4 mg/dL (0.7-1.3) H* 03/04/25 07:43
eGFR 14.83 03/04/25 07:43
Glucose 111 mg/dl (70-99) H 03/04/25 07:43
Calcium 8.8 mg/dl (8.4-10.2) 03/04/25 07:43
Phosphorus 3.5 mg/dl (2.5-4.5) 03/01/25 07:27
Dbx-W-Lngezarohnw Pept Cancelled 02/24/25 02:44
Albumin 3.0 g/dl (3.5-5.0) L 02/24/25 02:33
Physical Exam
-
Vital Signs:
Vital Signs
Temp Pulse Resp BP Pulse Ox
99.1 F 82 17 139/86 92
03/04/25 23:25 03/04/25 23:25 03/04/25 23:25 03/04/25 23:25 03/04/25 23:25
Cardiovascular:: Regular rate and rhythm
Respiratory:: Bilateral: Coarse
Lung Excursion:: Normal
Abdomen:: Nontender and Soft
Bowel Sounds:: Normal
Extremity Edema:: None: Bilateral:
Other Findings::
Cachectic
--- NOTE | 2025-03-05 08:47 | W.PN.HOSP.TC ---
Today's Communication/Plan
-
Awaiting placement to short-term rehab
Assessment / Plan
Assessment / Plan
HPI: 59-year-old with multiple medical comorbidities most notably end-stage renal disease with failed kidney transplant currently on hemodialysis Friday, history of hypertension, seizure disorder, recent admission for West Nile
encephalitis with epilepsy dysfunction, history of sudden cardiac arrest presenting to the emergency with sudden onset chest pressure and shortness of breath with associated nausea. Ischemic findings were negative with normal ECG, troponin of
0.033. However he had an x-ray with a new retrocardiac opacity. He had a temp of 100.5. CBC was unremarkable. His electrolytes were stable. BUN/creatinine reflective of ESRD. Patient is currently hemodynamically stable and not hypoxic.
Assessment/plan:
#Left-sided chest pressure with shortness of breath
Rule out pneumonia -retrocardiac opacity, fever. Immunosuppressed and recent hospitalization and stay in rehab facility
Rule out volume overload-chest x-ray also suggests CHF n the retrocardiac opacity may be a typical edema; BNP is also elevated Last echo here LVEF is 60-65% by visual estimation. Mild concentric LVH. Normal diastolic function.
Troponins on admission does not suggest acute coronary syndrome. EKG shows LVH no acute ST-T changes. Patient symptoms now resolved, suspect fluid related.
Repeat chest x-ray after hemodialysis shows resolving increased pulmonary vascularity but cannot exclude patchy left basilar subsegmental atelectasis versus pneumonia. With dysphagia cannot rule out aspiration pneumonia/pneumonitis. Cultures
negative to date
Patient has received 5 days of Unasyn, he does not need any more antibiotics
#Dysphagia
Patient is on modified diet and has function of swallow got worse. Failed FEES currently NPO.
With a change in the volume of the speech, prominence of the left base of the tongue obtained ENT eval
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 He also lost weight. They are recommending tube feeds and to keep n.p.o. for now
Appreciate GI input, status post PEG placement 02/28. GI has signed off
Patient tolerating tube feeds
#End-stage renal disease
#Hyponatremia
Continue dialysis as per nephrology
Continue antirejection taper with tacrolimus 0.5 mg twice daily and prednisone 3 mg
Continue salt restriction, continue sevelamer
#Anemia of chronic kidney disease
No signs of external bleeding
Hemoglobin improved to 7.2, was 7.0, increased from 6.2 status post 1 unit packed red blood cells 02/27
Heme test stools
#History of West Nile encephalitis recently-continue with therapies
History of seizure disorder-continue with Keppra
#History of cardiac arrest/afib
No defibrillator noted, continue Amio
Unclear why he is not ac and can't be sure of hx
#Hypertension
Clonidine patch, nifedipine 60 daily, hydralazine 50 twice daily, losartan 50 twice daily
#Stage II sacral pressure injury, present upon admission
Continue wound care
#Underweight BMI
Encourage intake
#Nonischemic myocardial injury troponin elevation
DVT PPX - heparin sq
Code status - Full code
Physical Exam
General: No acute distress
HEENT: Normocephalic, Atraumatic, EOMI, MMM
Soft voice
Respiratory: Clear to Auscultation bilaterally
Cardiac: Normal S1/S2, Regular Rate and Rhythm
GI: Soft, +PEG tube, Nondistended, Normal Bowel Sounds
Extremities: No Clubbing, Cyanosis, or Edema
Neuro: Nonfocal/Grossly Intact
Anticipated Discharge: > 48 hours
Subjective/Interval History
-
Date of Service: March 05, 2025
No acute events. Patient denies chest pain, denies shortness of breath. No fever, no vomiting.
Objective Data
-
Vital Signs:
Vital Signs
Temp Pulse Resp BP Pulse Ox
99.1 F 82 17 139/86 92
03/04/25 23:25 03/04/25 23:25 03/04/25 23:25 03/04/25 23:25 03/04/25 23:25
I&O
03/04/25 03/05/25 03/06/25
06:59 06:59 06:59
Intake Total 120 / 120 0 / 0
Output Total 0 / 0 0 / 0
Balance 120 / 120 0 / 0
[2025-03-05] MEDS: COLACE LIQUID TUBE ×2 (10:03→20:04)
[2025-03-05] MEDS: SENNA SYRUP TUBE ×2 (10:03→20:04)
[2025-03-05] MEDS: HEPARIN 5000 UNITS SC ×2 (10:04→17:07)
[2025-03-05] MEDS: VITAMIN D3 (cholecalciferol) 10 MCG TUBE (10:04)
[2025-03-05] MEDS: FOLVITE 1 MG TUBE (10:04)
[2025-03-05] MEDS: KEPPRA 500 MG TUBE (10:04)
[2025-03-05] MEDS: DELTASONE 3 MG PO (10:04)
[2025-03-05] MEDS: PROGRAF 0.5 MG PO ×2 (10:05→20:02)
[2025-03-05] MEDS: NSS (PRESERVATIVE FREE) 10 ML IV ×2 (10:05→20:03)
[2025-03-05] MEDS: PACERONE 200 MG TUBE (10:05)
[2025-03-05] MEDS: LIDOCAINE 4% PATCH 1 PATCH TOPICAL (10:05)
[2025-03-05] MEDS: SOLU-CORTEF 25 MG IV ×2 (10:07→20:03)
[2025-03-05] MEDS: PROTONIX IV 40 MG IV ×2 (10:07→20:03)
[2025-03-05 15:00] VITALS: BP 137/84
[2025-03-05] MEDS: REMOVE LIDOCAINE PATCH 1 PATCH REMOVE (20:03)
[2025-03-05] MEDS: NEURONTIN 100 MG TUBE (22:25)
[2025-03-05] MEDS: REFRESH EYE DROPS (PF) BOTH EYES (22:29)
[2025-03-05 23:43] VITALS: BP 138/83
[2025-03-06] MEDS: HEPARIN 5000 UNITS SC ×4 (00:31→23:31)
[2025-03-06 05:56] LABS: Hematocrit 22.4 % (39.0-52.0); Hemoglobin 7.4 g/dL (13.0-18.0); Mean Corp Hgb Conc. 33.0 g/dL (33.0-37.0); Mean Corpuscular Volume 88.2 fL (80.0-94.0); Platelet Count 137 10^3/uL (130-400); Red Cell Dist. Width 18.2 % (11.5-14.5)
[2025-03-06 06:00] VITALS: BMI 19.4
[2025-03-06 06:22] LABS: Blood Urea Nitrogen 40 mg/dl (9-20); Calcium 9.2 mg/dl (8.4-10.2); Carbon Dioxide 28 mmol/L (22-30); Chloride 98 mmol/L (98-107); Estimated Creatinine Clearance 19 ml/min; Glucose 118 mg/dl (70-99); Magnesium 2.1 mg/dl (1.6-2.3); Potassium 3.8 mmol/L (3.5-5.1); Sodium 130 mmol/L (135-145); eGFR 16.15
[2025-03-06 07:00] VITALS: BP 152/95
--- NOTE | 2025-03-06 08:45 | W.PN.HOSP.TC ---
Today's Communication/Plan
-
Awaiting rehab placement
Assessment / Plan
Assessment / Plan
HPI: 59-year-old with multiple medical comorbidities most notably end-stage renal disease with failed kidney transplant currently on hemodialysis Friday, history of hypertension, seizure disorder, recent admission for [place] Nile
encephalitis with epilepsy dysfunction, history of sudden cardiac arrest presenting to the emergency with sudden onset chest pressure and shortness of breath with associated nausea. Ischemic findings were negative with normal ECG, troponin of
0.033. However he had an x-ray with a new retrocardiac opacity. He had a temp of 100.5. CBC was unremarkable. His electrolytes were stable. BUN/creatinine reflective of ESRD. Patient is currently hemodynamically stable and not hypoxic.
Assessment/plan:
#Left-sided chest pressure with shortness of breath
Rule out pneumonia -retrocardiac opacity, fever. Immunosuppressed and recent hospitalization and stay in rehab facility
Rule out volume overload-chest x-ray also suggests CHF n the retrocardiac opacity may be a typical edema; BNP is also elevated Last echo here LVEF is 60-65% by visual estimation. Mild concentric LVH. Normal diastolic function.
Troponins on admission does not suggest acute coronary syndrome. EKG shows LVH no acute ST-T changes. Patient symptoms now resolved, suspect fluid related.
Repeat chest x-ray after hemodialysis shows resolving increased pulmonary vascularity but cannot exclude patchy left basilar subsegmental atelectasis versus pneumonia. With dysphagia cannot rule out aspiration pneumonia/pneumonitis. Cultures
negative to date
Patient has received 5 days of Unasyn, he does not need any more antibiotics
Discharge to short-term rehab when bed available
#Dysphagia
Patient is on modified diet and has function of swallow got worse. Failed FEES currently NPO.
With a change in the volume of the speech, prominence of the left base of the tongue obtained ENT eval
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 He also lost weight. They are recommending tube feeds and to keep n.p.o. for now
Appreciate GI input, status post PEG placement 02/28. GI has signed off
Patient tolerating tube feeds
#End-stage renal disease
#Hyponatremia
Continue dialysis as per nephrology
Continue antirejection taper with tacrolimus 0.5 mg twice daily and prednisone 3 mg
Continue salt restriction, continue sevelamer
#Anemia of chronic kidney disease
No signs of external bleeding
Hemoglobin improved to 7.4, increased from 6.2 status post 1 unit packed red blood cells 02/27
Heme test stools
#History of West Nile encephalitis recently-continue with therapies
History of seizure disorder-continue with Keppra
#History of cardiac arrest/afib
No defibrillator noted, continue Amio
Unclear why he is not ac and can't be sure of hx
#Hypertension
Clonidine patch, nifedipine 60 daily, hydralazine 50 twice daily, losartan 50 twice daily
#Stage II sacral pressure injury, present upon admission
Continue wound care
#Underweight BMI
Encourage intake
#Nonischemic myocardial injury troponin elevation
DVT PPX - heparin sq
Code status - Full code
Total time spent to see the patient on the floor, examine the patient, review data and lab results, discuss treatment plan with patient, nursing staff around 35 minutes.
Physical Exam
General: No acute distress
HEENT: Normocephalic, Atraumatic, EOMI, MMM
Soft voice
Respiratory: Clear to Auscultation bilaterally
Cardiac: Normal S1/S2, Regular Rate and Rhythm
GI: Soft, +PEG tube, Nondistended, Normal Bowel Sounds
Extremities: No Clubbing, Cyanosis, or Edema
Neuro: Nonfocal/Grossly Intact
Anticipated Discharge: Within 24 hours
Subjective/Interval History
-
Date of Service: March 06, 2025
Patient denies chest pain, denies shortness of breath. No fever, no vomiting. No abdominal pain. He is tolerating his tube feeds.
Objective Data
-
Labs:
Laboratory Results
03/06/25
05:29
WBC 9.0
Hgb 7.4 L
Hct 22.4 L
Plt Count 137
Sodium 130 L
Potassium 3.8
Chloride 98
Carbon Dioxide 28
BUN 40 H
Creatinine 4.1 H*
Glucose 118 H
Calcium 9.2
Vital Signs:
Vital Signs
Temp Pulse Resp BP Pulse Ox
98 F 78 20 152/95 91
03/06/25 07:00 03/06/25 07:00 03/06/25 07:00 03/06/25 07:00 03/06/25 07:00
I&O
03/05/25 03/06/25 03/07/25
06:59 06:59 06:59
Intake Total 0 / 0 480 / 480
Output Total 0 / 0 0 / 0
Balance 0 / 0 480 / 480
[2025-03-06] MEDS: DELTASONE 3 MG PO (08:58)
[2025-03-06] MEDS: KEPPRA 500 MG TUBE (08:58)
[2025-03-06] MEDS: VITAMIN D3 (cholecalciferol) 10 MCG TUBE (08:58)
[2025-03-06] MEDS: SENNA SYRUP 17.6 MG TUBE ×2 (08:58→20:23)
[2025-03-06] MEDS: LIDOCAINE 4% PATCH 1 PATCH TOPICAL (08:58)
[2025-03-06] MEDS: COLACE LIQUID 100 MG TUBE ×2 (08:58→20:23)
[2025-03-06] MEDS: PACERONE 200 MG TUBE (08:59)
[2025-03-06] MEDS: FOLVITE 1 MG TUBE (08:59)
[2025-03-06] MEDS: TYLENOL 650 MG TUBE (08:59)
[2025-03-06] MEDS: PROGRAF 0.5 MG PO (08:59)
[2025-03-06] MEDS: SOLU-CORTEF 25 MG IV ×2 (09:00→20:22)
[2025-03-06] MEDS: PROTONIX IV 40 MG IV ×2 (09:01→20:22)
[2025-03-06] MEDS: NSS (PRESERVATIVE FREE) 10 ML IV ×2 (09:01→20:22)
--- NOTE | 2025-03-06 09:39 | W.PN.NEPH.PH ---
Today's Communication / Plan
-
Dialysis tomorrow
Orders provided
Assessment/Plan
-
Assessment
ESRD
Left upper extremity AV fistula
donor renal transplant failed
Biopsy-proven IgA nephropathy
hypertension
Anemia
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
Plan
HD mwf , HD for Friday,orders provided
Status post PEG placement on 02/28/2025, fWF off now due to hyponatremia
Remains on tacrolimus
Disposition pending rehab placement
-
-
Date of Service: March 06, 2025
CC / HPI / ROS
-
Chief Complaint:
Failure to thrive
History of Present Illness:
ESRD status post rehab West Nile virus, Friday
Remains on tacrolimus for liver transplant
Status post transfusion for anemia, anemia persist with hemoglobin around 7
Status post PEG placement on 02/28/2025
Review of Systems:
PEG
no fevers
Awake and alert and conversational
Labs
-
Labs:
WBC 9.0 10^3/uL (4.8-10.8) 03/06/25 05:29
RBC 2.54 10^6/uL (4.70-6.10) L 03/06/25 05:29
Hgb 7.4 g/dL (13.0-18.0) L 03/06/25 05:29
Hct 22.4 % (39.0-52.0) L 03/06/25 05:29
Plt Count 137 10^3/uL (130-400) 03/06/25 05:29
Sodium 130 mmol/L (135-145) L 03/06/25 05:29
Potassium 3.8 mmol/L (3.5-5.1) 03/06/25 05:29
Chloride 98 mmol/L (98-107) 03/06/25 05:29
Carbon Dioxide 28 mmol/L (22-30) 03/06/25 05:29
BUN 40 mg/dl (9-20) H 03/06/25 05:29
Creatinine 4.1 mg/dL (0.7-1.3) H* 03/06/25 05:29
eGFR 16.15 03/06/25 05:29
Glucose 118 mg/dl (70-99) H 03/06/25 05:29
Calcium 9.2 mg/dl (8.4-10.2) 03/06/25 05:29
Phosphorus 2.5 mg/dl (2.5-4.5) 03/06/25 05:29
Lsm-R-Sevxafnjlqe Pept Cancelled 02/24/25 02:44
Albumin 3.0 g/dl (3.5-5.0) L 02/24/25 02:33
Physical Exam
-
Vital Signs:
Vital Signs
Temp Pulse Resp BP Pulse Ox
98 F 78 20 152/95 91
03/06/25 07:00 03/06/25 08:59 03/06/25 07:00 03/06/25 08:59 03/06/25 07:00
Cardiovascular:: Regular rate and rhythm
Respiratory:: Bilateral: Coarse
Lung Excursion:: Normal
Abdomen:: Nontender and Soft
Bowel Sounds:: Normal
Extremity Edema:: None: Bilateral:
Other Findings::
Cachectic
[2025-03-06 15:11] VITALS: BP 139/87
[2025-03-06] MEDS: REMOVE LIDOCAINE PATCH 1 PATCH REMOVE (20:27)
[2025-03-06] MEDS: PROGRAF 0.5 MG TUBE (22:56)
[2025-03-06] MEDS: NEURONTIN 100 MG TUBE (22:56)
[2025-03-06] MEDS: REFRESH EYE DROPS (PF) 1 DROPS BOTH EYES (22:58)
[2025-03-06] MEDS: PROGRAF PO (23:22)
[2025-03-06 23:24] VITALS: BP 136/86
[2025-03-07 08:14] VITALS: BP 123/77
[2025-03-07] MEDS: LIDOCAINE 4% PATCH 1 PATCH TOPICAL (08:20)
[2025-03-07] MEDS: DELTASONE 3 MG PO (08:22)
[2025-03-07] MEDS: SOLU-CORTEF 25 MG IV ×2 (08:22→19:45)
[2025-03-07] MEDS: TYLENOL 650 MG TUBE (08:22)
[2025-03-07] MEDS: SENNA SYRUP 17.6 MG TUBE ×2 (08:23→19:42)
[2025-03-07] MEDS: COLACE LIQUID 100 MG TUBE ×2 (08:23→19:43)
[2025-03-07] MEDS: PROGRAF 0.5 MG TUBE ×2 (08:24→21:59)
[2025-03-07] MEDS: VITAMIN D3 (cholecalciferol) 10 MCG TUBE (08:24)
[2025-03-07] MEDS: KEPPRA 500 MG TUBE (08:24)
[2025-03-07] MEDS: HEPARIN 5000 UNITS SC ×2 (08:26→16:08)
[2025-03-07] MEDS: NSS (PRESERVATIVE FREE) 10 ML IV ×2 (08:27→19:45)
[2025-03-07] MEDS: PROTONIX IV 40 MG IV ×2 (08:27→19:45)
[2025-03-07] MEDS: FOLVITE 1 MG TUBE (08:27)
[2025-03-07] MEDS: MANNITOL 25% 12.5 GRAMS IV ×2 (08:40→10:17)
[2025-03-07] MEDS: RETACRIT 10000 UNITS IV (08:46)
[2025-03-07 08:49] LABS: Hematocrit 20.3 % (39.0-52.0); Hemoglobin 6.8 g/dL (13.0-18.0); Mean Corp Hgb Conc. 33.5 g/dL (33.0-37.0); Mean Corpuscular Volume 90.2 fL (80.0-94.0); Platelet Count 137 10^3/uL (130-400); Red Cell Dist. Width 18.7 % (11.5-14.5)
[2025-03-07 08:58] LABS: Blood Urea Nitrogen 54 mg/dl (9-20); Calcium 9.0 mg/dl (8.4-10.2); Carbon Dioxide 30 mmol/L (22-30); Chloride 96 mmol/L (98-107); Estimated Creatinine Clearance 16 ml/min; Glucose 157 mg/dl (70-99); Potassium 4.2 mmol/L (3.5-5.1); Sodium 129 mmol/L (135-145); eGFR 12.72
[2025-03-07 11:26] VITALS: BP 118/73
[2025-03-07] MEDS: PACERONE 200 MG TUBE (11:48)
[2025-03-07 11:52] VITALS: BP 115/71
--- NOTE | 2025-03-07 12:01 | W.PN.NEPH.HD ---
Assessment
-
Seen on HD. no complaints. VSS, access ok. hgb 6.8, for PRBC.
on TF, no po intake. Na low. will need to determine EDW as BP is good.
Progress Note - Hemodialysis
-
Date of Service: March 07, 2025
Duration: 30 minutes and 3 hours
Potassium Bath: 3
Calcium Bath: 2.5
Opti-Dialyzer: 160
Ultrafiltration: Other (2kg)
Blood Flow: 400
Dialysate Flow: 600
Heparin: 0
EPO: 01610 units
--- NOTE | 2025-03-07 12:37 | W.PN.HOSP.TC ---
Today's Communication/Plan
-
Transfuse 1 unit of PRBC on hemodialysis
DC to rehab when bed available.
Assessment / Plan
Assessment / Plan
HPI: 59-year-old with multiple medical comorbidities most notably end-stage renal disease with failed kidney transplant currently on hemodialysis Friday, history of hypertension, seizure disorder, recent admission for West Nile
encephalitis with epilepsy dysfunction, history of sudden cardiac arrest presenting to the emergency with sudden onset chest pressure and shortness of breath with associated nausea. Ischemic findings were negative with normal ECG, troponin of
0.033. However he had an x-ray with a new retrocardiac opacity. He had a temp of 100.5. CBC was unremarkable. His electrolytes were stable. BUN/creatinine reflective of ESRD. Patient is currently hemodynamically stable and not hypoxic.
Assessment/plan:
#Left-sided chest pressure with shortness of breath
Rule out pneumonia -retrocardiac opacity, fever. Immunosuppressed and recent hospitalization and stay in rehab facility
Rule out volume overload-chest x-ray also suggests CHF n the retrocardiac opacity may be a typical edema; BNP is also elevated Last echo here LVEF is 60-65% by visual estimation. Mild concentric LVH. Normal diastolic function.
Troponins on admission does not suggest acute coronary syndrome. EKG shows LVH no acute ST-T changes. Patient symptoms now resolved, suspect fluid related.
Repeat chest x-ray after hemodialysis shows resolving increased pulmonary vascularity but cannot exclude patchy left basilar subsegmental atelectasis versus pneumonia. With dysphagia cannot rule out aspiration pneumonia/pneumonitis. Cultures
negative to date
Patient has received 5 days of Unasyn
Discharge to short-term rehab when bed available
#Dysphagia
Patient is on modified diet and has function of swallow got worse. Failed FEES currently NPO.
With a change in the volume of the speech, prominence of the left base of the tongue obtained ENT eval
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 He also lost weight. They are recommending tube feeds and to keep n.p.o. for now
Appreciate GI input, status post PEG placement 02/28. GI has signed off
Patient tolerating tube feeds
#End-stage renal disease
#Hyponatremia
Continue dialysis as per nephrology
Continue antirejection taper with tacrolimus 0.5 mg twice daily and prednisone 3 mg
Continue salt restriction, continue sevelamer
#Anemia of chronic kidney disease
No signs of external bleeding
Hemoglobin improved to 7.4, increased from 6.2 status post 1 unit packed red blood cells 02/27
Heme test stools-negative
Hemoglobin 6.8 today-transfused 1 more unit of PRBC today with hemodialysis
#History of West Nile encephalitis recently-continue with therapies
History of seizure disorder-continue with Keppra
#History of cardiac arrest/afib
No defibrillator noted, continue Amio
Unclear why he is not ac and can't be sure of hx
#Hypertension
Clonidine patch, nifedipine 60 daily, hydralazine 50 twice daily, losartan 50 twice daily
#Stage II sacral pressure injury, present upon admission
Continue wound care
#Underweight BMI
Encourage intake
#Nonischemic myocardial injury troponin elevation
DVT PPX - heparin sq
Code status - Full code
Anticipated Discharge: 24 - 48 hours
Subjective/Interval History
-
Date of Service: March 07, 2025
Voices no specific complaints. Feeling bit stronger.
Denies shortness of breath chest pain. No nausea vomiting.
Objective Data
-
Labs:
Laboratory Results
03/07/25
07:28
WBC 6.2
Hgb 6.8 L*
Hct 20.3 L*
Plt Count 137
Sodium 129 L
Potassium 4.2
Chloride 96 L
Carbon Dioxide 30
BUN 54 H
Creatinine 5.0 H*
Glucose 157 H
Calcium 9.0
Vital Signs:
Vital Signs
Temp Pulse Resp BP Pulse Ox
97.8 F 60 16 115/71 98
03/07/25 11:52 03/07/25 11:52 03/07/25 11:52 03/07/25 11:52 03/07/25 08:14
I&O
03/06/25 03/07/25 03/08/25
06:59 06:59 06:59
Intake Total 480 / 480 1785 / 1785 0 / 0
Output Total 0 / 0 0 / 0
Balance 480 / 480 1785 / 1785 0 / 0
Physical Exam
-
General: Comfortable
Respiratory: Non Labored Respirations; Negative Accessory Resp Muscle Use
Cardiac: Regular Rhythm and S1/S2; Negative Tachycardic
Neuro: AO x 3
Psych: Calm; Negative Confused
Data Reviewed
-
Labs: Labs Reviewed by me
[2025-03-07 14:31] VITALS: BP 138/84
[2025-03-07 15:32] VITALS: BP 138/83; BP 152/91; PULSE 62; PULSE 67; O2SAT 95; O2SAT 96
--- NOTE | 2025-03-07 16:54 | CM ---
Patient seen on HD this am, Updated clinical information sent via all scripts await confirmation of accepting facility. CM will continue to follow for discharge planning needs.
Plan; SNF
[2025-03-07] MEDS: KEPPRA 250 MG TUBE (17:38)
[2025-03-07] MEDS: REMOVE LIDOCAINE PATCH 1 PATCH REMOVE (19:47)
[2025-03-07] MEDS: REFRESH EYE DROPS (PF) 1 DROPS BOTH EYES (22:00)
[2025-03-07] MEDS: NEURONTIN 100 MG TUBE (22:00)
[2025-03-07 23:20] VITALS: BP 149/89
[2025-03-08] MEDS: HEPARIN 5000 UNITS SC ×3 (00:08→16:10)
[2025-03-08 05:02] VITALS: BMI 19.8
[2025-03-08] MEDS: PROTONIX IV 40 MG IV ×2 (07:48→20:00)
[2025-03-08] MEDS: NSS (PRESERVATIVE FREE) 10 ML IV ×2 (07:48→20:00)
[2025-03-08] MEDS: PROGRAF 0.5 MG TUBE ×2 (07:48→20:00)
[2025-03-08] MEDS: SOLU-CORTEF 25 MG IV ×2 (07:48→20:01)
[2025-03-08] MEDS: LIDOCAINE 4% PATCH 1 PATCH TOPICAL (07:48)
[2025-03-08] MEDS: PACERONE 200 MG TUBE (07:49)
[2025-03-08] MEDS: FOLVITE 1 MG TUBE (07:49)
[2025-03-08] MEDS: SENNA SYRUP 17.6 MG TUBE ×2 (07:49→20:01)
[2025-03-08] MEDS: COLACE LIQUID 100 MG TUBE ×2 (07:49→20:00)
[2025-03-08] MEDS: DELTASONE 3 MG PO (07:50)
[2025-03-08] MEDS: VITAMIN D3 (cholecalciferol) 10 MCG TUBE (07:50)
[2025-03-08] MEDS: KEPPRA 500 MG TUBE (07:50)
[2025-03-08 07:54] VITALS: BP 138/83
[2025-03-08 08:00] LABS: Hematocrit 25.0 % (39.0-52.0); Hemoglobin 8.4 g/dL (13.0-18.0); Mean Corp Hgb Conc. 33.6 g/dL (33.0-37.0); Mean Corpuscular Volume 90.9 fL (80.0-94.0); Platelet Count 145 10^3/uL (130-400); Red Cell Dist. Width 19.5 % (11.5-14.5)
--- NOTE | 2025-03-08 10:10 | W.PN.NEPH.PH ---
Today's Communication / Plan
-
HD tomorrow
Assessment/Plan
-
Assessment
ESRD
Left upper extremity AV fistula
donor renal transplant failed
Biopsy-proven IgA nephropathy
hypertension
Anemia
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
Plan
HD tomorrow
[facility] on HD
Status post PEG placement on 02/28/2025, no FWF
Remains on tacrolimus
Disposition pending rehab placement
-
-
Date of Service: March 08, 2025
CC / HPI / ROS
-
Chief Complaint: / hgb up to 8.4
Failure to thrive
History of Present Illness:
ESRD status post rehab West Nile virus, Friday
tolerated HD yesterday
Remains on tacrolimus for liver transplant
Status post transfusion for anemia, anemia persist with hemoglobin around 7
Status post PEG placement on 02/28/2025
Review of Systems:
PEG
no fevers
Labs
-
Labs:
WBC 7.8 10^3/uL (4.8-10.8) 03/08/25 06:56
RBC 2.75 10^6/uL (4.70-6.10) L 03/08/25 06:56
Hgb 8.4 g/dL (13.0-18.0) L D 03/08/25 06:56
Hct 25.0 % (39.0-52.0) L 03/08/25 06:56
Plt Count 145 10^3/uL (130-400) 03/08/25 06:56
Sodium 129 mmol/L (135-145) L 03/07/25 07:28
Potassium 4.2 mmol/L (3.5-5.1) 03/07/25 07:28
Chloride 96 mmol/L (98-107) L 03/07/25 07:28
Carbon Dioxide 30 mmol/L (22-30) 03/07/25 07:28
BUN 54 mg/dl (9-20) H 03/07/25 07:28
Creatinine 5.0 mg/dL (0.7-1.3) H* 03/07/25 07:28
eGFR 12.72 03/07/25 07:28
Glucose 157 mg/dl (70-99) H 03/07/25 07:28
Calcium 9.0 mg/dl (8.4-10.2) 03/07/25 07:28
Phosphorus 2.5 mg/dl (2.5-4.5) 03/06/25 05:29
Vmd-X-Azcewjgxpau Pept Cancelled 02/24/25 02:44
Albumin 3.0 g/dl (3.5-5.0) L 02/24/25 02:33
Physical Exam
-
Vital Signs:
Vital Signs
Temp Pulse Resp BP Pulse Ox
97.4 F 68 16 138/83 96
03/08/25 07:54 03/08/25 07:54 03/08/25 07:54 03/08/25 07:54 03/08/25 07:54
Cardiovascular:: Regular rate and rhythm
Respiratory:: Bilateral: Coarse
Lung Excursion:: Normal
Abdomen:: Nontender and Soft
Bowel Sounds:: Normal
Extremity Edema:: None: Bilateral:
--- NOTE | 2025-03-08 11:48 | W.PN.HOSP.TC ---
Today's Communication/Plan
-
Medically stable for discharge to rehab
Ongoing disposition efforts
Assessment / Plan
Assessment / Plan
HPI: 59-year-old with multiple medical comorbidities most notably end-stage renal disease with failed kidney transplant currently on hemodialysis Friday, history of hypertension, seizure disorder, recent admission for West Nile
encephalitis with epilepsy dysfunction, history of sudden cardiac arrest presenting to the emergency with sudden onset chest pressure and shortness of breath with associated nausea. Ischemic findings were negative with normal ECG, troponin of
0.033. However he had an x-ray with a new retrocardiac opacity. He had a temp of 100.5. CBC was unremarkable. His electrolytes were stable. BUN/creatinine reflective of ESRD. Patient is currently hemodynamically stable and not hypoxic.
Assessment/plan:
#Left-sided chest pressure with shortness of breath
Rule out pneumonia -retrocardiac opacity, fever. Immunosuppressed and recent hospitalization and stay in rehab facility
Rule out volume overload-chest x-ray also suggests CHF n the retrocardiac opacity may be a typical edema; BNP is also elevated Last echo here LVEF is 60-65% by visual estimation. Mild concentric LVH. Normal diastolic function.
Troponins on admission does not suggest acute coronary syndrome. EKG shows LVH no acute ST-T changes. Patient symptoms now resolved, suspect fluid related.
Repeat chest x-ray after hemodialysis shows resolving increased pulmonary vascularity but cannot exclude patchy left basilar subsegmental atelectasis versus pneumonia. With dysphagia cannot rule out aspiration pneumonia/pneumonitis. Cultures
negative to date
Patient has received 5 days of Unasyn
Discharge to short-term rehab when bed available
#Dysphagia
Patient is on modified diet and has function of swallow got worse. Failed FEES currently NPO.
With a change in the volume of the speech, prominence of the left base of the tongue obtained ENT eval
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 He also lost weight. They are recommending tube feeds and to keep n.p.o. for now
Appreciate GI input, status post PEG placement 02/28. GI has signed off
Patient tolerating tube feeds
#End-stage renal disease
#Hyponatremia
Continue dialysis as per nephrology
Continue antirejection taper with tacrolimus 0.5 mg twice daily and prednisone 3 mg
Continue salt restriction, continue sevelamer
#Anemia of chronic kidney disease
No signs of external bleeding
Hemoglobin improved to 7.4, increased from 6.2 status post 1 unit packed red blood cells 02/27
Heme test stools-negative
Hemoglobin 6.8 today-transfused 1 more unit of PRBC 03/07 with hemodialysis. Posttransfusion hemoglobin 8.4
#History of West Nile encephalitis recently-continue with therapies
History of seizure disorder-continue with Keppra
#History of cardiac arrest/afib
No defibrillator noted, continue Amio
Unclear why he is not ac and can't be sure of hx
#Hypertension
Clonidine patch, nifedipine 60 daily, hydralazine 50 twice daily, losartan 50 twice daily
#Stage II sacral pressure injury, present upon admission
Continue wound care
#Underweight BMI
Encourage intake
#Nonischemic myocardial injury troponin elevation
DVT PPX - heparin sq
Code status - Full code
Medically stable for discharge to rehab
Portions of this chart may have been created with voice recognition software. Occasional wrong word or 'sound alike' substitutions may have occurred due to the inherent limitations of voice recognition software.
Anticipated Discharge: Today
Subjective/Interval History
-
Date of Service: March 08, 2025
No overnight issues.
Voices no specific complaints.
Objective Data
-
Labs:
Laboratory Results
03/08/25
06:56
WBC 7.8
Hgb 8.4 L D
Hct 25.0 L
Plt Count 145
Vital Signs:
Vital Signs
Temp Pulse Resp BP Pulse Ox
97.4 F 68 16 138/83 96
03/08/25 07:54 03/08/25 07:54 03/08/25 07:54 03/08/25 07:54 03/08/25 10:13
I&O
03/07/25 03/08/25 03/09/25
06:59 06:59 06:59
Intake Total 1290 / 1290 1994
Output Total 0 / 0
Balance 1290 / 1290 1991
Physical Exam
-
General: Comfortable
Respiratory: Non Labored Respirations; Negative Accessory Resp Muscle Use
Cardiac: Negative Tachycardic
Neuro: AO x 3
Psych: Calm; Negative Confused
Data Reviewed
-
Labs: Labs Reviewed by me
--- NOTE | 2025-03-08 15:18 | CM ---
Reviewed the chart notes and spoke with the patient at the bedside. Explained that CM will need to cast net farther to other SNFs in [place] and [facility]. [facility]. CM continues to be available to
patient/family and is monitoring medical plan for needs at discharge.
[2025-03-08 15:23] VITALS: BP 140/85
[2025-03-08] MEDS: REMOVE LIDOCAINE PATCH 1 PATCH REMOVE (20:01)
[2025-03-08] MEDS: REFRESH EYE DROPS (PF) 1 DROPS BOTH EYES (21:29)
[2025-03-08] MEDS: NEURONTIN 100 MG TUBE (21:29)
[2025-03-08 23:23] VITALS: BP 137/82
[2025-03-09] MEDS: HEPARIN 5000 UNITS SC ×3 (00:25→16:18)
[2025-03-09 05:20] VITALS: BMI 20.1
[2025-03-09 07:00] VITALS: BP 151/88
[2025-03-09] MEDS: LIDOCAINE 4% PATCH 1 PATCH TOPICAL (09:08)
[2025-03-09] MEDS: PROGRAF 0.5 MG TUBE ×2 (09:08→20:49)
[2025-03-09] MEDS: NSS (PRESERVATIVE FREE) 10 ML IV ×2 (09:08→20:54)
[2025-03-09] MEDS: SENNA SYRUP 17.6 MG TUBE (09:08)
[2025-03-09] MEDS: KEPPRA 500 MG TUBE (09:08)
[2025-03-09] MEDS: COLACE LIQUID 100 MG TUBE (09:09)
[2025-03-09] MEDS: PACERONE 200 MG TUBE (09:09)
[2025-03-09] MEDS: VITAMIN D3 (cholecalciferol) 10 MCG TUBE (09:09)
[2025-03-09] MEDS: PROTONIX IV 40 MG IV ×2 (09:09→20:55)
[2025-03-09] MEDS: DELTASONE 3 MG PO (09:09)
[2025-03-09] MEDS: FOLVITE 1 MG TUBE (09:10)
[2025-03-09] MEDS: SOLU-CORTEF 25 MG IV (09:10)
[2025-03-09 10:21] VITALS: BP 147/74; PULSE 71; O2SAT 98
--- NOTE | 2025-03-09 11:38 | CM ---
Reviewed the chart notes. Updated clinicals sent to [facility] with HD Flow sheets. CM continues to be available to patient/family and is monitoring medical plan for needs at discharge.
Plan: Discharge to SNF once bed secured and precert obtained.
--- NOTE | 2025-03-09 13:12 | W.PN.HOSP.TC ---
Today's Communication/Plan
-
Ongoing disposition efforts
Assessment / Plan
Assessment / Plan
HPI: 59-year-old with multiple medical comorbidities most notably end-stage renal disease with failed kidney transplant currently on hemodialysis Friday, history of hypertension, seizure disorder, recent admission for West Nile
encephalitis with epilepsy dysfunction, history of sudden cardiac arrest presenting to the emergency with sudden onset chest pressure and shortness of breath with associated nausea. Ischemic findings were negative with normal ECG, troponin of
0.033. However he had an x-ray with a new retrocardiac opacity. He had a temp of 100.5. CBC was unremarkable. His electrolytes were stable. BUN/creatinine reflective of ESRD. Patient is currently hemodynamically stable and not hypoxic.
Assessment/plan:
#Left-sided chest pressure with shortness of breath
Rule out pneumonia -retrocardiac opacity, fever. Immunosuppressed and recent hospitalization and stay in rehab facility
Rule out volume overload-chest x-ray also suggests CHF n the retrocardiac opacity may be a typical edema; BNP is also elevated Last echo here LVEF is 60-65% by visual estimation. Mild concentric LVH. Normal diastolic function.
Troponins on admission does not suggest acute coronary syndrome. EKG shows LVH no acute ST-T changes. Patient symptoms now resolved, suspect fluid related.
Repeat chest x-ray after hemodialysis shows resolving increased pulmonary vascularity but cannot exclude patchy left basilar subsegmental atelectasis versus pneumonia. With dysphagia cannot rule out aspiration pneumonia/pneumonitis. Cultures
negative to date
Patient has received 5 days of Unasyn
Discharge to short-term rehab when bed available
#Dysphagia
Patient is on modified diet and has function of swallow got worse. Failed FEES currently NPO.
With a change in the volume of the speech, prominence of the left base of the tongue obtained ENT eval
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 He also lost weight. They are recommending tube feeds and to keep n.p.o. for now
Appreciate GI input, status post PEG placement 02/28. GI has signed off
Patient tolerating tube feeds
#End-stage renal disease
#Hyponatremia
Continue dialysis as per nephrology
Continue antirejection taper with tacrolimus 0.5 mg twice daily and prednisone 3 mg
Continue salt restriction, continue sevelamer
#Anemia of chronic kidney disease
No signs of external bleeding
Hemoglobin improved to 7.4, increased from 6.2 status post 1 unit packed red blood cells 02/27
Heme test stools-negative
Hemoglobin 6.8 today-transfused 1 more unit of PRBC 03/07 with hemodialysis. Posttransfusion hemoglobin 8.4
#History of West Nile encephalitis recently-continue with therapies
History of seizure disorder-continue with Keppra
#History of cardiac arrest/afib
No defibrillator noted, continue Amio
Unclear why he is not ac and can't be sure of hx
#Hypertension
Clonidine patch, nifedipine 60 daily, hydralazine 50 twice daily, losartan 50 twice daily
#Stage II sacral pressure injury, present upon admission
Continue wound care
#Underweight BMI
Encourage intake
#Nonischemic myocardial injury troponin elevation
DVT PPX - heparin sq
Code status - Full code
Add cintia stockings for LE edema
Medically stable for discharge to rehab
Portions of this chart may have been created with voice recognition software. Occasional wrong word or 'sound alike' substitutions may have occurred due to the inherent limitations of voice recognition software.
Anticipated Discharge: 24 - 48 hours
Subjective/Interval History
-
Date of Service: March 09, 2025
Denies shortness of breath or chest pain. No fever or chills.
No nausea vomiting.
Objective Data
-
Labs:
Laboratory Results
03/09/25
13:03
Hgb Pending
Hct Pending
Sodium Pending
Potassium Pending
Chloride Pending
Carbon Dioxide Pending
Vital Signs:
Vital Signs
Temp Pulse Resp BP Pulse Ox
98.7 F 71 16 151/88 97
03/09/25 07:00 03/09/25 09:09 03/09/25 07:00 03/09/25 09:09 03/09/25 11:50
I&O
03/08/25 03/09/25 03/10/25
06:59 06:59 06:59
Intake Total 1994 935 / 935
Output Total
Balance 1991 935 / 935
Physical Exam
-
General: Comfortable
Respiratory: Non Labored Respirations; Negative Accessory Resp Muscle Use
Cardiac: Regular Rhythm and S1/S2; Negative Tachycardic
Musculoskeletal: Edema, Left Upper Extrem and Edema, Right Lower Extrem
Neuro: AO x 3
Psych: Calm
[2025-03-09 13:17] LABS: Hematocrit 24.4 % (39.0-52.0); Hemoglobin 8.2 g/dL (13.0-18.0)
[2025-03-09] MEDS: ROXANOL ORAL CONCENTRATE 5 MG TUBE (13:18)
[2025-03-09] MEDS: RETACRIT 10000 UNITS IV (13:24)
[2025-03-09 13:25] LABS: Carbon Dioxide 27 mmol/L (22-30); Chloride 96 mmol/L (98-107); Potassium 3.8 mmol/L (3.5-5.1); Sodium 129 mmol/L (135-145)
--- NOTE | 2025-03-09 14:22 | W.PN.NEPH.HD ---
Assessment
-
Patient seen on dialysis
Systolic blood pressure stable at current UF
Tacrolimus trough level pending from transition to liquid form to facilitate PEG administration
Progress Note - Hemodialysis
-
Date of Service: March 09, 2025
Duration: 30 minutes and 3 hours
Potassium Bath: 3
Calcium Bath: 2.5
Opti-Dialyzer: 160
Ultrafiltration: Other (2.5kg)
Blood Flow: 400
Dialysate Flow: 600
Heparin: none
EPO: 10K
[2025-03-09 15:00] VITALS: BP 130/78
[2025-03-09] MEDS: KEPPRA 250 MG TUBE (16:18)
--- NOTE | 2025-03-09 17:43 | PTCARENOTE ---
Patient with +2 scrotal edema, c/o soreness especially with lala care. +1 pitting LE and pedal edema. MD aware, knee high TEDs ordered, US of B/L LEs ordered per MD.
[2025-03-09] MEDS: SENNA SYRUP TUBE (20:49)
[2025-03-09] MEDS: COLACE LIQUID TUBE (20:49)
[2025-03-09] MEDS: REMOVE LIDOCAINE PATCH 1 PATCH REMOVE (20:49)
[2025-03-09] MEDS: NEURONTIN 100 MG TUBE (22:00)
[2025-03-09] MEDS: REFRESH EYE DROPS (PF) BOTH EYES (22:02)
[2025-03-09 23:30] VITALS: BP 136/80
[2025-03-10] MEDS: HEPARIN 5000 UNITS SC ×4 (00:20→23:48)
[2025-03-10 05:33] VITALS: BMI 19.7
[2025-03-10 08:01] VITALS: BP 151/93
[2025-03-10] MEDS: DELTASONE 3 MG PO (09:41)
[2025-03-10] MEDS: VITAMIN D3 (cholecalciferol) 10 MCG TUBE (09:41)
[2025-03-10] MEDS: FOLVITE 1 MG TUBE (09:41)
[2025-03-10] MEDS: KEPPRA 500 MG TUBE (09:41)
[2025-03-10] MEDS: LIDOCAINE 4% PATCH TOPICAL ×2 (09:42→10:17)
[2025-03-10] MEDS: COLACE LIQUID TUBE ×2 (09:42→20:32)
[2025-03-10] MEDS: NSS (PRESERVATIVE FREE) 10 ML IV ×2 (09:43→20:32)
[2025-03-10] MEDS: PROTONIX IV 40 MG IV ×2 (09:43→20:32)
[2025-03-10] MEDS: PACERONE 200 MG TUBE (09:44)
[2025-03-10] MEDS: SENNA SYRUP TUBE ×2 (09:44→20:32)
[2025-03-10] MEDS: CATAPRES-TTS-2 0.2 MG TRANSDERM (09:45)
[2025-03-10] MEDS: PROGRAF 0.5 MG TUBE ×2 (09:51→20:32)
--- NOTE | 2025-03-10 11:36 | W.PN.NEPH.PH ---
Today's Communication / Plan
-
Dialysis tomorrow
Assessment/Plan
-
Assessment
ESRD
Left upper extremity AV fistula
donor renal transplant failed
Biopsy-proven IgA nephropathy
hypertension
Anemia
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
Plan
HD tomorrow, orders provided
[facility]ANKI on HD
Status post PEG placement on 02/28/2025, no FWF
Remains on tacrolimus pending level
Disposition pending rehab placement
-
-
Date of Service: March 10, 2025
CC / HPI / ROS
-
Chief Complaint: / hgb up to 8.4
Failure to thrive
History of Present Illness:
ESRD status post rehab West Nile virus, Friday
tolerated HD yesterday
Remains on tacrolimus for liver transplant
Status post transfusion for anemia, anemia persist with hemoglobin around 7
Status post PEG placement on 02/28/2025
Review of Systems:
PEG
no fevers
Labs
-
Labs:
WBC 7.8 10^3/uL (4.8-10.8) 03/08/25 06:56
RBC 2.75 10^6/uL (4.70-6.10) L 03/08/25 06:56
Hgb 8.2 g/dL (13.0-18.0) L 03/09/25 13:03
Hct 24.4 % (39.0-52.0) L 03/09/25 13:03
Plt Count 145 10^3/uL (130-400) 03/08/25 06:56
Sodium 129 mmol/L (135-145) L 03/09/25 13:03
Potassium 3.8 mmol/L (3.5-5.1) 03/09/25 13:03
Chloride 96 mmol/L (98-107) L 03/09/25 13:03
Carbon Dioxide 27 mmol/L (22-30) 03/09/25 13:03
BUN 54 mg/dl (9-20) H 03/07/25 07:28
Creatinine 5.0 mg/dL (0.7-1.3) H* 03/07/25 07:28
eGFR 12.72 03/07/25 07:28
Glucose 157 mg/dl (70-99) H 03/07/25 07:28
Calcium 9.0 mg/dl (8.4-10.2) 03/07/25 07:28
Phosphorus 2.5 mg/dl (2.5-4.5) 03/06/25 05:29
Kzk-U-Wiakrizfnld Pept Cancelled 02/24/25 02:44
Albumin 3.0 g/dl (3.5-5.0) L 02/24/25 02:33
Physical Exam
-
Vital Signs:
Vital Signs
Temp Pulse Resp BP Pulse Ox
98.5 F 77 16 151/73 95
03/10/25 08:01 03/10/25 09:44 03/10/25 08:01 03/10/25 09:44 03/10/25 10:19
Cardiovascular:: Regular rate and rhythm
Respiratory:: Bilateral: Coarse
Lung Excursion:: Normal
Abdomen:: Nontender and Soft
Bowel Sounds:: Normal
Extremity Edema:: None: Bilateral:
--- NOTE | 2025-03-10 14:07 | W.PN.HOSP.TC ---
Today's Communication/Plan
-
DC planning
Assessment / Plan
Assessment / Plan
HPI: 59-year-old with multiple medical comorbidities most notably end-stage renal disease with failed kidney transplant currently on hemodialysis Friday, history of hypertension, seizure disorder, recent admission for West Nile
encephalitis with epilepsy dysfunction, history of sudden cardiac arrest presenting to the emergency with sudden onset chest pressure and shortness of breath with associated nausea. Ischemic findings were negative with normal ECG, troponin of
0.033. However he had an x-ray with a new retrocardiac opacity. He had a temp of 100.5. CBC was unremarkable. His electrolytes were stable. BUN/creatinine reflective of ESRD. Patient is currently hemodynamically stable and not hypoxic.
Assessment/plan:
#Left-sided chest pressure with shortness of breath
Rule out pneumonia -retrocardiac opacity, fever. Immunosuppressed and recent hospitalization and stay in rehab facility
Rule out volume overload-chest x-ray also suggests CHF n the retrocardiac opacity may be a typical edema; BNP is also elevated Last echo here LVEF is 60-65% by visual estimation. Mild concentric LVH. Normal diastolic function.
Troponins on admission does not suggest acute coronary syndrome. EKG shows LVH no acute ST-T changes. Patient symptoms now resolved, suspect fluid related.
Repeat chest x-ray after hemodialysis shows resolving increased pulmonary vascularity but cannot exclude patchy left basilar subsegmental atelectasis versus pneumonia. With dysphagia cannot rule out aspiration pneumonia/pneumonitis. Cultures
negative to date
Patient has received 5 days of Unasyn
Discharge to short-term rehab when bed available
#Dysphagia
Patient is on modified diet and has function of swallow got worse. Failed FEES currently NPO.
With a change in the volume of the speech, prominence of the left base of the tongue obtained ENT eval
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 He also lost weight. They are recommending tube feeds and to keep n.p.o. for now
Appreciate GI input, status post PEG placement 02/28. GI has signed off
Patient tolerating tube feeds
#End-stage renal disease
#Hyponatremia
Continue dialysis as per nephrology
Continue antirejection taper with tacrolimus 0.5 mg twice daily and prednisone 3 mg
Continue salt restriction, continue sevelamer
# BL LE , scrotal/penie, and lower lid puffiness noted -sec to fluid third spacing -cw HD
#Anemia of chronic kidney disease
No signs of external bleeding
Hemoglobin improved to 7.4, increased from 6.2 status post 1 unit packed red blood cells 02/27
Heme test stools-negative
Hemoglobin 6.8 today-transfused 1 more unit of PRBC 03/07 with hemodialysis. Posttransfusion hemoglobin 8.4
#History of West Nile encephalitis recently-continue with therapies
History of seizure disorder-continue with Keppra
#History of cardiac arrest/afib
No defibrillator noted, continue Amio
Unclear why he is not ac and can't be sure of hx
#Hypertension
Clonidine patch, nifedipine 60 daily, hydralazine 50 twice daily, losartan 50 twice daily
#Stage II sacral pressure injury, present upon admission
Continue wound care
#Underweight BMI
Encourage intake
#Nonischemic myocardial injury troponin elevation
DVT PPX - heparin sq
Code status - Full code
Add cintia stockings for LE edema
Medically stable for discharge to rehab
DW CM -likely DC in am once auth is obtained
Portions of this chart may have been created with voice recognition software. Occasional wrong word or 'sound alike' substitutions may have occurred due to the inherent limitations of voice recognition software.
Anticipated Discharge: Within 24 hours
Subjective/Interval History
-
Date of Service: March 10, 2025
Complains of scrotal and penis swelling. The bottom of the scrotum is painful because of constant rubbing.
No pain in the penis.
Denies shortness of breath.
No fever chills.
Objective Data
-
Vital Signs:
Vital Signs
Temp Pulse Resp BP Pulse Ox
98.5 F 77 16 151/73 95
03/10/25 08:01 03/10/25 09:44 03/10/25 08:01 03/10/25 09:44 03/10/25 10:19
I&O
03/09/25 03/10/25 03/11/25
06:59 06:59 06:59
Intake Total 935 / 935 350 / 350
Output Total 0 / 0
Balance 935 / 935 350 / 350
Physical Exam
-
General: No Apparent Distress
HEENT: Moist Mucous Membranes and Other (lower lids puffiness noted)
Cardiac: Regular Rhythm and S1/S2; Negative Tachycardic
Genito-urinary: Other (Penile shaft and scrotal edema noted .No tenderness .)
Musculoskeletal: Edema, Left Upper Extrem and Edema, Right Lower Extrem
Psych: Calm
--- NOTE | 2025-03-10 15:41 | CM ---
Reviewed the chart notes and spoke with the patient at the bedside. Discussed with the patient that [facility] is able to accept tomorrow. Will need to obtain auth tomorrow after PT eval.
[facility] NPI #[id number]
Dr. Jones NPI#[id number]
Plan: Discharge to [facility] tomorrow once auth obtained.
[2025-03-10 16:21] VITALS: BP 141/84
--- NOTE | 2025-03-10 16:27 | PTCARENOTE ---
Tube feed started at 1630; Nepro with Carb steady 85ml/hr; no flush per order.
[2025-03-10 17:56] LABS: TSH 1.07 uIU/ml (0.47-4.68)
[2025-03-10] MEDS: REMOVE LIDOCAINE PATCH 1 PATCH REMOVE (20:32)
[2025-03-10] MEDS: NEURONTIN 100 MG TUBE (22:32)
[2025-03-10] MEDS: REFRESH EYE DROPS (PF) BOTH EYES (22:32)
[2025-03-10 23:20] VITALS: BP 141/86
[2025-03-11] VITALS (8 sets, daily range): BP systolic 131–151; BP diastolic 80–92; PULSE 78; O2SAT 96; BMI 20.1
[2025-03-11 08:05] LABS: Hematocrit 23.4 % (39.0-52.0); Hemoglobin 7.6 g/dL (13.0-18.0)
[2025-03-11 08:16] LABS: Carbon Dioxide 31 mmol/L (22-30); Chloride 97 mmol/L (98-107); Potassium 3.8 mmol/L (3.5-5.1); Sodium 129 mmol/L (135-145)
[2025-03-11] MEDS: COLACE LIQUID TUBE ×3 (08:17→23:18)
[2025-03-11] MEDS: SENNA SYRUP TUBE ×3 (08:18→23:19)
--- NOTE | 2025-03-11 10:11 | W.PN.NEPH.HD ---
Addendum entered and electronically signed by Mary De La Fuente MD 03/11/25 13:53:
noted BP stable just with clonidine
off hydralazine, nifedipine and losartan for several days now , cont clonidine patch
may resume Losartan at low dose mainly for proteinuria in future although no sig UOP
Original Note:
Assessment
-
pt seen during HD
vitals stable
UF as tolerates with dependant edema -mainly left face
AVF functions well
for 1 unit PRBC for anemia and high dose FRANKI
Cont tac through PEG
for d/c [facility]
Progress Note - Hemodialysis
-
Date of Service: March 11, 2025
Duration: 30 minutes and 3 hours
Potassium Bath: 3
Calcium Bath: 2.5
Opti-Dialyzer: 160
Ultrafiltration: Other (2.5-3.5kg)
Blood Flow: 400
Dialysate Flow: 600
Heparin: no
EPO: [id number]
[2025-03-11] MEDS: PROTONIX IV 40 MG IV ×2 (12:36→23:00)
[2025-03-11] MEDS: LIDOCAINE 4% PATCH TOPICAL (12:37)
[2025-03-11] MEDS: DELTASONE 3 MG PO (12:37)
[2025-03-11] MEDS: NSS (PRESERVATIVE FREE) 10 ML IV ×2 (12:37→23:00)
[2025-03-11] MEDS: KEPPRA 500 MG TUBE (12:37)
[2025-03-11] MEDS: FOLVITE 1 MG TUBE (12:38)
[2025-03-11] MEDS: PACERONE 200 MG TUBE (12:38)
[2025-03-11] MEDS: HEPARIN 5000 UNITS SC ×2 (12:39→23:05)
[2025-03-11] MEDS: VITAMIN D3 (cholecalciferol) 10 MCG TUBE (12:39)
[2025-03-11] MEDS: PROGRAF 0.5 MG TUBE ×2 (12:39→23:12)
--- NOTE | 2025-03-11 14:59 | W.DCSUMMARY ---
Discharge Summary
Discharge Data
Date of Admission: 02/24/25
Date of Discharge: 03/11/25
-
Pending Results: No
Hospital Course
Primary diagnosis:
Aspiration pneumonia/pneumonitis
Dysphagia requiring PEG tube insertion
Anemia of chronic disease status post blood transfusion
Secondary diagnosis:
History of West Nile encephalitis
History of seizure disorder
End-stage renal disease on hemodialysis
History of cardiac arrest
History of failed renal transplant
IgA nephropathy and failure of transplant kidney now on dialysis
Hospital course:
59-year-old gentleman sent from local rehab with symptom of chest pressure and as well as shortness of breath with nausea. He apparently was lethargic as well. He was transferred to rehab after prolonged hospital stay for West Nile virus
infection. He has developed profound muscle weakness and nonambulatory.
He had fever and there was a retrocardiac opacity. He has recent hospitalization and immune suppressed. Clinical concern was for pneumonia; thought possibly aspiration pneumonia/pneumonitis due to dysphagia.. He was seen by speech and he was
noted to be aspirating and was kept NPO. There was a concern about vocal cord dysfunction and ENT consultation was obtained. His left vocal cord was weak/paralyzed and left tongue was weak. He lost weight. It was felt that he would benefit from
presence of a feeding tube to gain nutrition when he is recovering from West Nile virus infection. He had successful placement of PEG tube. He was seen and followed by speech therapy send continue to recommend NPO.
His fevers resolved. He did well and finished his course of antibiotics for pneumonia in the hospital.
He continued to receive hemodialysis during the stay here.
He is anemia of chronic disease and needed 2 units of blood transfusion during stay here. There was no evidence of obvious external bleeding. I will continue to get his Epogen shots as an outpatient with hemodialysis.
He was not comfortable going back to his previous rehab and case management was involved and he was discharged to [facility] today.
Today voiced no specific complaints. Denies shortness of breath. Afebrile, pulse 74, blood pressure 141/83. Chest anteriorly was clear. Abdomen is soft. He was alert and oriented without distress. Hemoglobin was 7.6 without obvious external
bleeding. He was transfused 1 unit of PRBC with hemodialysis today. Post hemodialysis he was without any symptoms and was discharged to rehab.
Since admission he had emesis admission his blood pressure was under goal just with clonidine patch. He was on nifedipine, losartan, hydralazine which all were on hold on discontinued as felt not needed.
Consultants on board:
Nephrology-Eduardo Mendez
GI-Fara Loomis
ENT-Jonathan Castillo
Discharge Plan
-
Patient Disposition: [facility]NF
Discharge Diagnosis/Procedures: Aspiration pneumonia/pneumonitis ; Dysphagia s/p PEG; recent West Nile encephalitis; ESRD on HD. Chronic anemia needed transfusion support
Diet: Tube feeding
Additional Diets: npo
Activity: As tolerated
Driving Restrictions: No driving
Blood Work: CBC blood work in a week
Specialty Instructions: Weigh Daily- Call MD for wt gain/loss 3 lbs overnight/5 lbs in 1 week
Referrals:
UNKNOWN - PT DOES,NOT KNOW [Family Provider]
Prescriptions:
New
docusate sodium 50 mg/5 mL Liquid
100 mg feeding tube BID Qty: 473 0RF
acetaminophen 325 mg Tablet
650 mg feeding tube Q4HPRN PRN (Reason: if temp > 101 F/ mild pain) Qty: 1 0RF
Continued
Artificial Tears Ophthalmic Oint
1 applic BOTH EYES HS
Rx Instructions:
83-15% oint
cholecalciferol (vitamin D3)
10 mcg PO DAILY
clonidine
0.2 patch topical
Rx Instructions:
0.2mg/24hr one time a day every 7 days
lidocaine
1 patch topical DAILY
senna-docusate sodium
8.6 - 50 mg PO BID
sevelamer HCl
800 mg PO TID
Changed
polyethylene glycol 3350 17 gram Powder In Packet
17 g feeding tube DAILYPRN PRN (Reason: constipation) Qty: 0 0RF
amiodarone
200 mg G-tube DAILY Qty: 0 0RF
folic acid
1 mg G-tube DAILY Qty: 0 0RF
gabapentin
2 ml G-tube HS Qty: 0 0RF
Rx Instructions:
250mg/ml
levetiracetam
5 ml G-tube DAILY Qty: 0 0RF
Rx Instructions:
100mg/ml
levetiracetam
2.5 ml G-tube QMWF Qty: 0 0RF
Rx Instructions:
100mg/ml
melatonin
3 mg G-tube HS Qty: 0 0RF
pantoprazole
40 mg G-tube BID Qty: 0 0RF
prednisone
3 mg G-tube DAILY Qty: 0 0RF
tacrolimus
0.5 mg G-tube BID Qty: 0 0RF
thiamine HCl (vitamin B1)
100 mg G-tube DAILY Qty: 0 0RF
Discontinued
amlodipine 10 mg Tablet
10 mg PO HS
calcium carbonate [Tums] 200 mg calcium (500 mg) Tablet,Chewable
600 mg PO MEALS
sennosides-docusate sodium 8.6-50 mg Tablet
1 tab PO BIDPRN PRN (Reason: constipation) Qty: 0 0RF
oxycodone-acetaminophen 5-325 mg Tablet
1 tab PO Q4HPRN PRN (Reason: severe pain) Qty: 20 0RF
Losartan
50 mg PO BID
Rx Instructions:
related to essential HTN
hydralazine
50 mg PO BID
metoclopramide HCl
10 ml PO 4XD
nifedipine
60 mg PO DAILY
Rx Instructions:
ER tab
Discharge Orders:
Discharge Patient (As Directed); Ordered 03/11/25
Ordered By: Kevin Sheets
Discharge Date and Time
Print Language: SERBIAN
[2025-03-11] MEDS: HEPARIN SC (16:10)
--- NOTE | 2025-03-11 16:27 | PTCARENOTE ---
Tube feed started at 1600; Nepro with Carb steady 85ml/hr; no flush per order.
--- NOTE | 2025-03-11 16:55 | CM ---
Reviewed the chart notes. Auth obtained for [facility]. Updated patient, RN , and patient's mother of discharge plans for tomorrow.
Start 03/12-03/18; NRD 03/18; Fax Clinicals to [phone]; Auth-[id number]
Plan: Discharge to [facility] tomorrow.
Call report to: [phone]
Fax report to: [phone]
Medical necessity and transport forms on chart.
[2025-03-11] MEDS: KEPPRA 250 MG TUBE (17:46)
[2025-03-11] MEDS: REMOVE LIDOCAINE PATCH 1 PATCH REMOVE (23:01)
[2025-03-11] MEDS: NEURONTIN 100 MG TUBE (23:01)
[2025-03-11] MEDS: REFRESH EYE DROPS (PF) 1 DROPS BOTH EYES (23:03)
[2025-03-12 06:00] VITALS: BMI 19.7
[2025-03-12 07:40] VITALS: BP 158/86
[2025-03-12] MEDS: PROGRAF 0.5 MG TUBE (09:09)
[2025-03-12] MEDS: HEPARIN 5000 UNITS SC (09:09)
[2025-03-12] MEDS: PACERONE 200 MG TUBE (09:10)
[2025-03-12] MEDS: PROTONIX IV 40 MG IV (09:10)
[2025-03-12] MEDS: SENNA SYRUP 17.6 MG TUBE (09:10)
[2025-03-12] MEDS: NSS (PRESERVATIVE FREE) 10 ML IV (09:11)
[2025-03-12] MEDS: KEPPRA 500 MG TUBE (09:11)
[2025-03-12] MEDS: FOLVITE 1 MG TUBE (09:11)
[2025-03-12] MEDS: COLACE LIQUID 100 MG TUBE (09:11)
[2025-03-12] MEDS: LIDOCAINE 4% PATCH TOPICAL (09:12)
[2025-03-12] MEDS: VITAMIN D3 (cholecalciferol) 10 MCG TUBE (09:12)
[2025-03-12] MEDS: DELTASONE 3 MG PO (09:12)
--- NOTE | 2025-03-12 09:29 | CM ---
D/c to [facility] today
11:30 am ambulance transport. Updated [facility] admissions
Plan: [facility]
== END 2025-03-12 10:45 | DRG 177 ==
LOC: 2 NORTH 05:46
PROVIDERS: Family Medicine; Internal Medicine; Internal Medicine Nephrology; Nurse Practitioner Adult Health; Physician Assistant; Specialist; Surgery; ADMITTING PHYSICIAN Internal Medicine; ATTENDING PHYSICIAN Internal Medicine; CONSULT PHYSICIAN Internal Medicine; CONSULT PHYSICIAN Specialist; EMERGENCY PHYSICIAN Emergency Medicine; OTHER PHYSICIAN Otolaryngology Facial Plastic Surgery
PROC: 0CJS8ZZ Inspection of Larynx, Via Natural or Artificial Opening Endoscopic (ICD-10-PCS; 2025-02-25)
PROC: 5A1D70Z Performance of Urinary Filtration, Intermittent, Less than 6 Hours Per Day (ICD-10-PCS; 2025-02-25)
PROC: 30233N1 Transfusion of Nonautologous Red Blood Cells into Peripheral Vein, Percutaneous Approach (ICD-10-PCS; 2025-02-27)
PROC: 0DH63UZ Insertion of Feeding Device into Stomach, Percutaneous Approach (ICD-10-PCS; 2025-02-28)
DX: J69.0 Pneumonitis due to inhalation of food and vomit (principal); N18.6 End stage renal disease; I12.0 Hypertensive chronic kidney disease with stage 5 chronic kidney disease or end stage renal disease; T86.12 Kidney transplant failure; D84.9 Immunodeficiency, unspecified; E87.1 Hypo-osmolality and hyponatremia; I5A Non-ischemic myocardial injury (non-traumatic); Z68.1 Body mass index [BMI] 19.9 or less, adult; R13.12 Dysphagia, oropharyngeal phase; D63.1 Anemia in chronic kidney disease; E78.00 Pure hypercholesterolemia, unspecified; Y83.0 Surgical operation with transplant of whole organ as the cause of abnormal reaction of the patient, or of later complication, without mention of misadventure at the time of the procedure; K59.09 Other constipation; I48.91 Unspecified atrial fibrillation; G40.909 Epilepsy, unspecified, not intractable, without status epilepticus; B94.8 Sequelae of other specified infectious and parasitic diseases; M62.81 Muscle weakness (generalized); J38.01 Paralysis of vocal cords and larynx, unilateral; R79.89 Other specified abnormal findings of blood chemistry; E87.70 Fluid overload, unspecified; R62.7 Adult failure to thrive; K29.70 Gastritis, unspecified, without bleeding; L89.152 Pressure ulcer of sacral region, stage 2; R63.6 Underweight; Z99.2 Dependence on renal dialysis; Z11.52 Encounter for screening for COVID-19; Z86.74 Personal history of sudden cardiac arrest
CPT/HCPCS: 71046; 80048; 80051; 80053; 80061; 80197; 80202; 82728; 83540; 83550; 83605; 83735; 83880; 84100; 84443; 84484; 85014; 85018; 85025; 85027; 85045; 85610; 86850; 86900; 86901; 86920; 87040; 87340; 87502; 87641; 87811; 92507; 92523; 92526; 92610; 92612; 93005; 93970; 93971; 96365; 96367; 97110; 97116; 97163; 97167; 97530; 97535; 99285; G0257; P9016; P9047; Q5106

== ENCOUNTER 2025-05-12 15:15 | Emergency (ER) | payer BC, SELFPAY ==
[2025-05-12 15:17] VITALS: BP 144/92
--- NOTE | 2025-05-12 18:00 | ED.GENMED ---
History of Present Illness
General
Chief Complaint: Abdominal Pain
Source: patient, records and family
Exam Limitations: none
Time Seen by Provider: 05/12/25 17:24
Nursing documentation reviewed up to this point in time: agreed with
History of Present Illness
History of Present Illness:
59-year-old male chronically ill ESRD failed renal transplant feeding tube takes all his feeds by the tube as his meds including steroids, has pain in his abdomen he is given his feeds and his meds, acute on chronic issue has some bloating no
vomiting no fevers apparently had a cough scheduled for an x-ray he had West Nile was admitted to [facility] for an extended period of time no chest pains he points to his mid abdomen when asked where his pain is
Past History
Past History
ED Past Medical History: HTN and Renal failure (Renal transplant 2002)
ED Past Surgical History: Other (Renal transplant 2002; AV fistula left forearm)
Social History
Tobacco: Non-smoker
Alcohol: None
Drug: None
Personal: Single
Living: with family
Employment: Not employed
Family History
Family History: Hypertension
Review of Systems
Review of Systems
All Other Systems: Not applicable
Constitutional: Denies fever or fatigue
EENT: Reports no symptoms
Respiratory: Reports no symptoms
Cardiac: Denies chest pain
ABD/GI: Reports abdominal pain
Musculoskeletal: Reports no symptoms
Skin: Reports no symptoms
Phy Exam
Physical Exam
Physical Exam:
Physical Exam
General: Nontoxic chronically ill male
Neck: no jaundice
Heart: s1/s2 regular rate and rhythm, no murmur. equal radial pulses.
Lungs: no acute respiratory distress. No wheezing
Abdomen: Soft feeding tube intact no drainage no tenderness.
Neuro: alert and oriented. Globally weak
Skin: no rash
Psychiatric: Cooperative flat affect
Extremities: no edema.
Course
Orders/Labs/Results
Orders:
Orders
05/12/25 17:43
CR Chest - 2 Views Urgent
Comment:
Reason For Exam: cough
05/12/25 17:44
CT Abd/pelvis W Iv Cont Urgent
Comment:
Reason For Exam: psot prandial pain, esrd ok to scan
Pantoprazole [Protonix IV] 80 mg IV NOW STA
05/12/25 18:04
Complete Blood Count/With Diff Urgent
Comprehensive Metabolic Panel Urgent
Lipase Urgent
05/12/25 20:38
Nystatin Suspension [Mycostatin Oral Suspension] 5 ml PO NOW STA
05/13/25 08:00
Amoxicillin/Clavulanate Potass [Augmentin 250 mg/5 ml] 500 mg PO DAILY
Abnormal Lab Results
05/12/25
18:04
RBC 2.91 L 10^6/uL
(4.70-6.10)
Hgb 9.8 L g/dL
(13.0-18.0)
Hct 29.2 L %
(39.0-52.0)
MCV 100.3 H fL
(80.0-94.0)
MCH 33.7 H pg
(27.0-31.0)
RDW 17.4 H %
(11.5-14.5)
Plt Count 127 L 10^3/uL
(130-400)
MPV 10.8 H fL
(7.4-10.4)
Absolute Lymphs (auto) 0.9 L 10^3/uL
(1.2-3.4)
Lymphocytes % 17.9 L %
(20.5-51.1)
Potassium 3.2 L mmol/L
(3.5-5.1)
Chloride 93 L mmol/L
(98-107)
Carbon Dioxide 36 H mmol/L
(22-30)
BUN 36 H mg/dl
(9-20)
Creatinine 2.8 H mg/dL
(0.7-1.3)
Glucose 105 H mg/dl
(70-99)
Total Bilirubin 1.5 H mg/dl
(0.2-1.3)
ALT 53 H U/L
(0-50)
Alkaline Phosphatase 255 H U/L
(38-126)
05/12/25 18:04
05/12/25 18:04
Vital Signs
Initial and Last Documented VS:
Initial Vital Signs
Temp Pulse Resp BP Pulse Ox
98.2 F 84 16 144/92 98
05/12/25 15:17 05/12/25 15:17 05/12/25 15:17 05/12/25 15:17 05/12/25 15:17
Last Documented Vital Signs
Temp Pulse Resp BP Pulse Ox
98.5 F 83 16 157/107 94
05/12/25 19:43 05/12/25 19:43 05/12/25 19:43 05/12/25 19:38 05/12/25 19:43
MDM/Problems Addressed
Differential Diagnosis Includes:
Gastritis ulcer doubt pancreatitis or surgical abdomen perhaps anemia
MDM/Problems Addressed:
Postprandial abdominal pain
Chronic conditions affecting care: Neurological disorder, Previous abdomnial surgery, Immunosuppressed and Kidney disease
Acute Exacerbation and/or Progression of Chronic Illness: Neurological disorder, Previous abdomnial surgery, Immunosuppressed and Kidney disease
*Radiology
Radiology exam reviewed: radiology read reviewed
*Pulse Oximetry
SaO2: 98
Oxygen Mode of Delivery: Room air
*Critical Care Note
Total Time (30-74mins, 75-104mins- exclusive of procedures): Not Applicable
Update Note
Update Note:
6:45 PM labs are noted hemoglobin better than baseline white count noted renal numbers consistent with chronic renal insufficiency, dialyzed yesterday
Chest x-ray noted CT report noted patient is scheduled for dialysis tomorrow
Did have low-grade fever, has some crackles, will treat for concomitant pneumonia with volume also has thrush patient states he feels okay like to go home reviewed with family
ED Attending Note
-
Portions of this chart may have been created with voice recognition software.� Occasional wrong word or��sound alike� substitutions may have occurred due to the inherent limitations of voice recognition software.
Discharge Plan
Departure
Patient Disposition: Home (Routine Discharge)
Date of Disposition: 05/12/25
Time of Disposition: 20:40
Patient with high blood pressure during this ER visit?: No
Condition: Good
Discharge Problem:
Oral thrush, Bronchitis, Volume overload
Instructions: Thrush in adults, Acute bronchitis in adults
Prescriptions:
New
nystatin 100,000 unit/mL suspension
2 ml PO QID 7 Days Qty: 56 0RF
amoxicillin-pot clavulanate [Augmentin] 250-62.5 mg/5 mL suspension for reconstitution
10 ml feeding tube BID 10 Days Qty: 200 0RF
No Action
Artificial Tears Ophthalmic Oint
1 applic BOTH EYES HS
Rx Instructions:
83-15% oint
cholecalciferol (vitamin D3)
10 mcg PO DAILY
clonidine
0.2 patch topical
Rx Instructions:
0.2mg/24hr one time a day every 7 days
lidocaine
1 patch topical DAILY
senna-docusate sodium
8.6 - 50 mg PO BID
sevelamer HCl
800 mg PO TID
docusate sodium 50 mg/5 mL Liquid
100 mg feeding tube BID Qty: 473 0RF
polyethylene glycol 3350 17 gram Powder In Packet
17 g feeding tube DAILYPRN PRN (Reason: constipation) Qty: 0 0RF
amiodarone
200 mg G-tube DAILY Qty: 0 0RF
folic acid
1 mg G-tube DAILY Qty: 0 0RF
gabapentin
2 ml G-tube HS Qty: 0 0RF
Rx Instructions:
250mg/ml
levetiracetam
5 ml G-tube DAILY Qty: 0 0RF
Rx Instructions:
100mg/ml
levetiracetam
2.5 ml G-tube QMWF Qty: 0 0RF
Rx Instructions:
100mg/ml
melatonin
3 mg G-tube HS Qty: 0 0RF
pantoprazole
40 mg G-tube BID Qty: 0 0RF
prednisone
3 mg G-tube DAILY Qty: 0 0RF
tacrolimus
0.5 mg G-tube BID Qty: 0 0RF
thiamine HCl (vitamin B1)
100 mg G-tube DAILY Qty: 0 0RF
acetaminophen 325 mg Tablet
650 mg feeding tube Q4HPRN PRN (Reason: if temp > 101 F/ mild pain) Qty: 1 0RF
Referrals:
Tierney Stafford MD [Family Provider, Family Practice]
Interventions
Interventions:
*Risk Screen - Suicide Last Done: 05/12/25 15:17
*General Assessment Last Done: 05/12/25 15:17
*Neglect/Abuse Screening Last Done: 05/12/25 15:17
*ED COVID-19 Vaccine History Last Done: 05/12/25 15:17
*ED Influenza Vaccine History Last Done: 05/12/25 15:17
[facility] Fall Risk Assessment Tool Last Done: 05/12/25 18:08
[place]-[facility] Assessment Last Done: 05/12/25 19:52
Discharge Date and Time
Print Language: MACANESE
[2025-05-12] MEDS: PROTONIX IV 80 MG IV (18:08)
[2025-05-12 18:11] VITALS: BMI 18.7
[2025-05-12 18:16] VITALS: BP 168/108
[2025-05-12 18:29] LABS: Hematocrit 29.2 % (39.0-52.0); Hemoglobin 9.8 g/dL (13.0-18.0); Mean Corp Hgb Conc. 33.6 g/dL (33.0-37.0); Mean Corpuscular Volume 100.3 fL (80.0-94.0); Nucleated Red Blood Cells % 0 % (-); Platelet Count 127 10^3/uL (130-400); Red Cell Dist. Width 17.4 % (11.5-14.5)
[2025-05-12 18:30] LABS: ALT (SGPT) 53 U/L (0-50); AST (SGOT) 38 U/L (17-59); Albumin 4.0 g/dl (3.5-5.0); Alkaline Phosphatase 255 U/L (38-126); Blood Urea Nitrogen 36 mg/dl (9-20); Calcium 10.0 mg/dl (8.4-10.2); Carbon Dioxide 36 mmol/L (22-30); Chloride 93 mmol/L (98-107); Estimated Creatinine Clearance 27 ml/min; Glucose 105 mg/dl (70-99); Lipase 59 U/L (23-300); Potassium 3.2 mmol/L (3.5-5.1); Sodium 135 mmol/L (135-145); Total Protein 7.2 g/dl (6.3-8.2); eGFR 25.52
[2025-05-12 19:38] VITALS: BP 157/107
[2025-05-12 20:00] VITALS: BP 162/108
[2025-05-12 21:00] VITALS: BP 167/115
[2025-05-12] MEDS: MYCOSTATIN ORAL SUSPENSION 5 ML PO (21:20)
[2025-05-12] MEDS: AUGMENTIN 250 MG/5 ML 500 MG PO (21:20)
== END 2025-05-12 21:48 | disposition home or self-care (01) ==
LOC: EMR 15:15
PROVIDERS: EMERGENCY PHYSICIAN Emergency Medicine; FAMILY PHYSICIAN Family Medicine
DX: B37.0 Candidal stomatitis (principal); J40 Bronchitis, not specified as acute or chronic; E87.70 Fluid overload, unspecified; I13.11 Hypertensive heart and chronic kidney disease without heart failure, with stage 5 chronic kidney disease, or end stage renal disease; N18.6 End stage renal disease; Z99.2 Dependence on renal dialysis; T86.12 Kidney transplant failure; Y83.0 Surgical operation with transplant of whole organ as the cause of abnormal reaction of the patient, or of later complication, without mention of misadventure at the time of the procedure; Z93.1 Gastrostomy status
CPT/HCPCS: 99284; 96374; 71046; 74177; 80053; 83690; 85025; Q9967

== ENCOUNTER → 2025-05-24 08:26 | Outpatient (REF) | payer BC, SELFPAY | LOC: RST 08:26 | PROVIDERS: FAMILY PHYSICIAN Family Medicine | DX: N18.6 End stage renal disease (principal); R13.12 Dysphagia, oropharyngeal phase | CPT/HCPCS: 74230; 92611 ==